=== PATIENT | female | born 1930 | race Caucasian/White ===

== ENCOUNTER → 2017-02-24 | Outpatient (CLI) | payer MEDICARE, OTHER ==
--- NOTE | 2017-02-24 15:01 | RAD ---
DATE: 02/24/2017 EXAM: DIGITAL SCREEN BILAT W/CAD HISTORY: Routine screening COMPARISON: 08/17/2013 This study was interpreted with the benefit of Computerized Aided Detection (CAD). FINDINGS: The fibroglandular tissues in the anterior aspect of the breasts are heterogeneously dense. No new or enlarging breast densities are seen. Benign type calcifications are present. No suspicious microcalcifications have developed. IMPRESSION: Stable mammograms without evidence of malignancy. BI-RADS CATEGORY: 2 BENIGN FINDING(S) RECOMMENDED FOLLOW-UP: 12M 12 MONTH FOLLOW-UP PQRS compliance statement: Patient information was entered into a reminder system with a target due date for the next mammogram. Mammography is a sensitive method for finding small breast cancers, but it does not detect them all and is not a substitute for careful clinical examination. A negative mammogram does not negate a clinically suspicious finding and should not result in delay in biopsying a clinically suspicious abnormality. "Our facility is accredited by the [employer] Mammography Program."
== END | disposition home or self-care (01) ==
LOC: MAMMO 10:36
PROVIDERS: ATTEND Physician Assistant
DX: Z12.31 Encounter for screening mammogram for malignant neoplasm of breast (principal)
CPT/HCPCS: G0202; 77067

== ENCOUNTER 2017-04-12 07:52 | Inpatient (IN) | payer MEDICARE, OTHER ==
[2017-04-12] VITALS (22 sets, daily range): BP systolic 76–114; BP diastolic 34–75
[~2017-04-12] VITALS: Ht 160 cm; Wt 77.6 kg
--- NOTE | 2017-04-12 08:09 | ED.ADGEN ---
Adult General Chief Complaint Chief Complaint Nausea vomiting diarrhea HPI HPI Patient is a 86 year old female who presents with vomiting diarrhea for the last 3-4 days. She states she has a history of A. fib and takes Coumadin. She states she's been feeling generalized weak, and not able to keep down any of her medicines. She also has some mild abdominal pain in the left upper quadrant that she states comes and goes. She states she's been having black stools but has been taking Pepto and iron pills. Denies any fevers chills chest pain or shortness of breath. Review of Systems Review of Systems Constitutional: Denies fever or chills [] Eyes: Denies change in visual acuity, redness, or eye pain [] HENT: Denies nasal congestion or sore throat [] Respiratory: Denies cough or shortness of breath [] Cardiovascular: No additional information not addressed in HPI [] GI: Positive for mild abdominal pain, nausea, vomiting, and black diarrhea [] : Denies dysuria or hematuria [] Musculoskeletal: Denies back pain or joint pain [] Integument: Denies rash or skin lesions [] Neurologic: Denies headache, focal weakness or sensory changes [] Endocrine: Denies polyuria or polydipsia [] Current Medications Current Medications Current Medications Medications (Trade) Dose Ordered Sig/Beau Start Time Stop Time Status Last Admin Dose Admin Diltiazem HCl (Cardizem) 10 mg 1X ONCE 04/12/17 10:00 04/12/17 10:01 DC 04/12/17 10:02 10 MG Diltiazem HCl 125 mg/Dextrose 125 ml @ 0 mls/hr 1X ONCE 04/12/17 10:00 04/12/17 10:01 DC 04/12/17 10:26 5 MLS/HR Lidocaine/Sodium Bicarbonate (Buffered Lidocaine 1%) 3 ml 1X ONCE 04/12/17 10:00 04/12/17 10:00 DC Sodium Chloride 1,000 ml @ 1,000 mls/hr 1X ONCE 04/12/17 08:30 04/12/17 09:29 DC 04/12/17 08:35 1,000 MLS/HR Allergies Allergies Allergies Coded Allergies Type Severity Reaction Last Updated Verified No Known Drug Allergies 04/12/17 No Physical Exam Physical Exam Constitutional: Well developed, well nourished, no acute distress, non-toxic appearance. [] HENT: Normocephalic, atraumatic, bilateral external ears normal, oropharynx moist, no oral exudates, nose normal. [] Eyes: PERRLA, EOMI, conjunctiva normal, no discharge. [] Neck: Normal range of motion, no tenderness, supple, no stridor. [] Cardiovascular:Heart rate irregular rhythm with tachycardia, no murmur [] Lungs & Thorax: Bilateral breath sounds clear to auscultation [] Abdomen rectal exam: Bowel sounds normal, soft, mild tender to palpation the left upper quadrant, no rebound or guarding, no masses, no pulsatile masses. Normal tone, black liquid stools, no obvious blood noted. Skin: Warm, dry, no erythema, no rash. [] Back: No tenderness, no CVA tenderness. [] Extremities: No tenderness, no cyanosis, no clubbing, ROM intact, no edema. [] Neurologic: Alert and oriented X 3, normal motor function, normal sensory function, no focal deficits noted. [] Psychologic: Affect normal, judgement normal, mood normal. [] Current Patient Data Vital Signs Vital Signs Date Time Temp Pulse Resp B/P (MAP) Pulse Ox O2 Delivery O2 Flow Rate FiO2 04/12/17 10:02 130 132/64 04/12/17 07:54 98.6 18 98 Room Air Lab Results Laboratory Tests Test 04/12/17 08:35 04/12/17 10:30 White Blood Count 6.7 x10^3/uL (4.0-11.0) Red Blood Count 4.97 x10^6/uL (3.50-5.40) Hemoglobin 14.1 g/dL (12.0-15.5) Hematocrit 43.2 % (36.0-47.0) Mean Corpuscular Volume 87 fL (79-100) Mean Corpuscular Hemoglobin 28 pg (25-35) Mean Corpuscular Hemoglobin Concent 33 g/dL (31-37) Red Cell Distribution Width 14.7 % (11.5-14.5) H Platelet Count 219 x10^3/uL (140-400) Neutrophils (%) (Auto) 81 % (31-73) H Lymphocytes (%) (Auto) 10 % (24-48) L Monocytes (%) (Auto) 8 % (0-9) Eosinophils (%) (Auto) 0 % (0-3) Basophils (%) (Auto) 0 % (0-3) Neutrophils # (Auto) 5.4 x10^3uL (1.8-7.7) Lymphocytes # (Auto) 0.7 x10^3/uL (1.0-4.8) L Monocytes # (Auto) 0.5 x10^3/uL (0.0-1.1) Eosinophils # (Auto) 0.0 x10^3/uL (0.0-0.7) Basophils # (Auto) 0.0 x10^3/uL (0.0-0.2) Prothrombin Time 54.9 SEC (9.4-11.4) H Prothrombin Time INR 5.3 (0.9-1.1) *H PTT 40 SEC (23-33) H Sodium Level 141 mmol/L (136-145) Potassium Level 3.7 mmol/L (3.5-5.1) Chloride Level 105 mmol/L (98-107) Carbon Dioxide Level 15 mmol/L (21-32) L Anion Gap 21 (6-14) H Blood Urea Nitrogen 43 mg/dL (7-20) H Creatinine 2.8 mg/dL (0.6-1.0) H Estimated GFR (Cockcroft-Gault) 16.0 Glucose Level 242 mg/dL (70-99) H Lactic Acid Level 6.0 mmol/L (0.4-2.0) *H Calcium Level 9.0 mg/dL (8.5-10.1) Magnesium Level 1.6 mg/dL (1.8-2.4) L Total Bilirubin 0.5 mg/dL (0.2-1.0) Direct Bilirubin 0.2 mg/dL (0.0-0.2) Aspartate Amino Transferase (AST) 29 U/L (15-37) Alanine Aminotransferase (ALT) 25 U/L (14-59) Alkaline Phosphatase 65 U/L (46-116) Creatine Kinase 249 U/L (26-192) H Creatine Kinase MB (Mass) 9.9 ng/mL (0.0-3.6) H Creatine Kinase MB Relative Index 4.0 % (0-4) Troponin I Quantitative < 0.017 ng/mL (0-0.055) VY-Qcd-D-Type Natriuretic Peptide 5352 pg/mL (0-449) H Total Protein 7.6 g/dL (6.4-8.2) Albumin 3.4 g/dL (3.4-5.0) Lipase 55 U/L (73-393) L Blood pH 7.40 (7.35-7.45) Blood Gas PCO2 20 mmHg (35-45) L Blood Gas PO2 65 mmHg (71-100) L Blood Gas HCO3 12 mmol/L (22-26) L Arterial Bld O2 Saturation (Calc) 93 % (92-99) FiO2 21 % EKG EKG [] Radiology/Procedures Radiology/Procedures [address] [address] IMAGING REPORT Signed PATIENT: ТАТЬЯНА NOLAND ACCOUNT: [id number] : 1930 LOCATION: ER AGE: 86 SEX: F EXAM STATUS: REG ER ORD. PHYSICIAN: NINOSKA WEINSTEIN MD REASON: abd pain PROCEDURE: PORTABLE CHEST 1V Chest radiograph 04/12/2017 at 0829 hours Indication: Severe diarrhea for 4 days, shortness of breath. Comparison: None available Technique: Portable upright view of the chest is provided. Findings: The cardiomediastinal silhouette is within normal limits. There are no pleural effusions. No pulmonary vascular congestion. No pneumothorax. There is left basilar subsegmental atelectasis. 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 Impression: Subsegmental atelectasis is noted at the left lung base. Otherwise, the lungs are clear. DICTATED AND SIGNED BY: NEHAL SESAY MD DATE: 04/12/17 0837 CC: NINOSKA WEINSTEIN MD; PIOTR STEPHEN ~ Course & Med Decision Making Course & Med Decision Making Pertinent Labs and Imaging studies reviewed. (See chart for details) She presents with a heart rate in the 150s after liter fluids is in the 130s. Diltiazem 10 mg bolus and a drip at 5 per hour was started. She has an elevated lactic acid at 6, with an anion gap. Her creatinine is elevated I do not know this is old or new. Rectal exam was performed and Hemoccult pending at this time. Her hemoglobin is 14. Her INR is elevated at 5. She is in stable condition even though her labs do not reflect this. She's being admitted to Dr. Hernandez at this time her vitals lab chest x-ray EKG were described in detail to Dr. Hernandez. The patient since stable but critical condition going to the ICU Critical care time 55 minutes of critical care time was used on this patient excluding procedures. Final Impression Final Impression A. fib with RVR Diarrhea Lactic acidosis Renal failure Problems: Dragon Disclaimer Dragon Disclaimer This electronic medical record was generated, in whole or in part, using a voice recognition dictation system. NINOSKA WEINSTEIN MD Apr 12, 2017 08:09
[2017-04-12] MEDS ORDERED: WARF1TAB74 PO (08:12)
[2017-04-12] MEDS ORDERED: IV NORMAL SALINE 1,000ML 1,000 ML IV ONE ×3 (08:30→16:00)
--- NOTE | 2017-04-12 08:42 | RAD ---
Chest radiograph 04/12/2017 at 0829 hours Indication: Severe diarrhea for 4 days, shortness of breath. Comparison: None available Technique: Portable upright view of the chest is provided. Findings: The cardiomediastinal silhouette is within normal limits. There are no pleural effusions. No pulmonary vascular congestion. No pneumothorax. There is left basilar subsegmental atelectasis. 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 Impression: Subsegmental atelectasis is noted at the left lung base. Otherwise, the lungs are clear.
--- NOTE | 2017-04-12 08:51 | EKG ---
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
[2017-04-12 08:58] LABS: BASO % 0 % (0-3); EOS % 0 % (0-3); HEMATOCRIT 43.2 % (36.0-47.0); HEMOGLOBIN 14.1 g/dL (12.0-15.5); LYMPH # 0.7 x10^3/uL (1.0-4.8); LYMPH % 10 % (24-48); MEAN CORPUSCULAR HEMOGLOBIN 28 pg (25-35); MEAN CORPUSCULAR HGB CONC 33 g/dL (31-37); MEAN CORPUSCULAR VOLUME 87 fL (79-100); MONO # 0.5 x10^3/uL (0.0-1.1); MONO % 8 % (0-9); NEUT # 5.4 x10^3uL (1.8-7.7); NEUT % 81 % (31-73); PLATELET COUNT 219 x10^3/uL (140-400); RED BLOOD COUNT 4.97 x10^6/uL (3.50-5.40); RED CELL DISTRIBUTION WIDTH 14.7 % (11.5-14.5); WHITE BLOOD COUNT 6.7 x10^3/uL (4.0-11.0)
[2017-04-12 09:30] LABS: ALBUMIN 3.4 g/dL (3.4-5.0); CREATININE 2.8 mg/dL (0.6-1.0); DIRECT BILIRUBIN 0.2 mg/dL (0.0-0.2); MAGNESIUM 1.6 mg/dL (1.8-2.4); POTASSIUM 3.7 mmol/L (3.5-5.1); TOTAL BILIRUBIN 0.5 mg/dL (0.2-1.0); TOTAL PROTEIN 7.6 g/dL (6.4-8.2)
[2017-04-12] MEDS ORDERED: dilTIAZem 25 MG/5 ML VIAL IVP ONE (10:00)
[2017-04-12] MEDS ORDERED: LIDOCAINE WITH 8.4% SOD BICARB 3 ML DISP.SYRIN. IJ ONE (10:00)
[2017-04-12 10:48] LABS: BGAS PH 7.4 (7.35-7.45)
[2017-04-12] MEDS ORDERED: ONDANSETRON PF 4 MG/2 ML VIAL. IV PRN ×2 (11:00→12:30)
[2017-04-12 11:10] LABS: BACTERIA,URINE FEW /HPF (0-FEW); BILIRUBIN,URINE NEG (NEG); CLARITY,URINE HAZY; COLOR,URINE YELLOW; FECAL OB PT NEGATIVE (NEG); GLUCOSE,URINE NEG (NEG); NITRITE,URINE NEG (NEG); SQUAMOUS EPITHELIAL CELL,UR OCC /LPF; UROBILINOGEN,URINE 0.2 mg/dL (0.2 mg/dL); WBC,URINE 0 /HPF (0-4)
[2017-04-12 11:11] LABS: AMORPHOUS SEDIMENT,UR PRESENT /HPF
[2017-04-12] MEDS ORDERED: AMLO10TA2 PO (12:49)
[2017-04-12] MEDS ORDERED: ASCO500T3 PO (12:54)
[2017-04-12] MEDS ORDERED: CALC-77 PO (12:56)
[2017-04-12] MEDS ORDERED: ATOR10TA PO (12:56)
[2017-04-12] MEDS ORDERED: ASPI81TA50 PO (12:56)
[2017-04-12] MEDS ORDERED: METO50TA2 PO (13:04)
[2017-04-12] MEDS ORDERED: METO100T2 PO (13:04)
[2017-04-12] MEDS ORDERED: CYAN100T PO (13:04)
[2017-04-12] MEDS ORDERED: VALS320T2 PO (13:04)
[2017-04-12] MEDS ORDERED: MULT-503 PO (13:04)
[2017-04-12] MEDS ORDERED: MAGNESIUM SULFATE 2GM 50 ML IV ONE (13:10)
--- NOTE | 2017-04-12 14:52 | PDOC2 ---
CONSULT Date of Admission DATE: 04/12/17 TIME: 14:28 Reason for Consult: atrial fibrillation with RVR Problem List Problems Medical Problems: (1) Afib Status: Acute History of Present Illness Apple is an 86 year old female with history of atrial fibrillation, hypertension and hyperlipidemia who normally follows with [facility]. She reports diarrhea and vomiting that started Tuesday luis. She states she was fine most of the day Sat, then Sat luis started with symptoms again. Diarrhea has continued and when nausea/vomiting started she presented for eval. She denies chest discomfort. She does report dyspnea with walking up the steps in her home over the last 1 week that is new. She denies congestive symptoms. She denies problems with functional capacity normally. She denies any lightheadedness or dizziness or syncope. She denies fever or chills but does report waking in the night with significant diaphoresis. She currently states she feels fine except for the ongoing diarrhea. Past Medical History hypertension, hyperlipidemia, diabetes mellitus, atrial fibrillation, colon cancer Past Surgical History colon resection Family History non contributory due to age Social History non smoker, no significant ETOH, no illicit drugs. and lives with . Current Medications HOME cardiac meds include: [id number] mg daily, valsartan 320 mg daily, metoprolol 100mg every am, 50 mg every pm, aspirin 81mg daily, lipitor 10 mg daily, warfarin 2 mg daily Current Medications Sodium Chloride 1,000 ml @ 1,000 mls/hr 1X ONCE IV Last administered on 08:35; Start 04/12/17 at 08:30; Stop 04/12/17 at 09:29; Status DC Diltiazem HCl (Cardizem) 10 mg 1X ONCE IVP Last administered on 04/12/17 10: 02; Start 04/12/17 at 10:00; Stop 04/12/17 at 10:01; Status DC Diltiazem HCl 125 mg/Dextrose 125 ml @ 0 mls/hr 1X ONCE IV Last administered on 04/12/17 10:26; Start 04/12/17 at 10:00; Stop 04/12/17 at 10:01; Status DC Lidocaine/Sodium Bicarbonate (Buffered Lidocaine 1%) 3 ml 1X ONCE IJ ; Start at 10:00; Stop 04/12/17 at 10:00; Status DC Ondansetron HCl (Zofran) 4 mg PRN Q4HRS PRN IV NAUSEA/VOMITING; Start 04/12/17 at 11:00; Stop 04/13/17 at 10:59 Sodium Chloride 1,000 ml @ 125 mls/hr 1X ONCE IV Last administered on t 11:00; Start 04/12/17 at 11:00; Stop 04/12/17 at 18:59 Ondansetron HCl (Zofran) 4 mg PRN Q8HRS PRN IV NAUSEA/VOMITING; Start 04/12/17 at 12:30 Magnesium Sulfate 50 ml @ 25 mls/hr 1X ONCE IV Last administered on 04/12/17 13:49; Start 04/12/17 at 13:10; Stop 04/12/17 at 15:09 Famotidine (Pepcid) 20 mg BID IVP ; Start 04/12/17 at 21:00 Active Scripts Active Amlodipine Besylate 10 Mg Tablet 1 Tab PO DAILY Reported Diovan (Valsartan) 320 Mg Tablet 1 Tab PO DAILY Thera-M (Multivits,Th W-Fe,Other Min) 1 Each Tablet 1 Each PO DAILY Metoprolol Tartrate 50 Mg Tablet 1 Tab PO HS Metoprolol Tartrate 100 Mg Tablet 1 Tab PO DAILY Vitamin B-12 (Cyanocobalamin (Vitamin B-12)) 100 Mcg Tablet 100 Mcg PO DAILY Calcium + D3 Er Tablet (Calcium Carb & Cit/Vitamin D3) 1 Each Tablet.er 1 Each PO DAILY Lipitor (Atorvastatin Calcium) 10 Mg Tablet 1 Tab PO DAILY Aspir-Low (Aspirin) 81 Mg Tablet.dr 1 Tab PO DAILY Ascorbic Acid 500 Mg Tablet 500 Mg PO DAILY Coumadin (Warfarin Sodium) 1 Mg Tablet 2 Mg PO DAILYWSUP Allergies: Coded Allergies: No Known Drug Allergies (Unverified , 04/12/17) Review of System as per HPI or negative General: Alert, Oriented X3, Cooperative, No acute distress HEENT: Atraumatic, EOMI, Other (mucous memb dry) Lungs: Other (left basilar crackles) Heart: Other (irregular rate and rhythm, no S3/S5, no clicks or rubs) Extremities: No cyanosis, Other (weak pulses) Neuro: Normal speech, Strength at 5/5 X4 ext Psych/Mental Status: Mental status NL, Mood NL VITALS Vital Signs Date Time Temp Pulse Resp B/P (MAP) Pulse Ox O2 Delivery O2 Flow Rate FiO2 04/12/17 13:29 98.0 121 20 113/75 (88) 97 Room Air Labs Laboratory Tests Test 04/12/17 08:35 04/12/17 10:30 04/12/17 10:55 04/12/17 12:40 White Blood Count 6.7 x10^3/uL (4.0-11.0) Red Blood Count 4.97 x10^6/uL (3.50-5.40) Hemoglobin 14.1 g/dL (12.0-15.5) Hematocrit 43.2 % (36.0-47.0) Mean Corpuscular Volume 87 fL (79-100) Mean Corpuscular Hemoglobin 28 pg (25-35) Mean Corpuscular Hemoglobin Concent 33 g/dL (31-37) Red Cell Distribution Width 14.7 % (11.5-14.5) Platelet Count 219 x10^3/uL (140-400) Neutrophils (%) (Auto) 81 % (31-73) Lymphocytes (%) (Auto) 10 % (24-48) Monocytes (%) (Auto) 8 % (0-9) Eosinophils (%) (Auto) 0 % (0-3) Basophils (%) (Auto) 0 % (0-3) Neutrophils # (Auto) 5.4 x10^3uL (1.8-7.7) Lymphocytes # (Auto) 0.7 x10^3/uL (1.0-4.8) Monocytes # (Auto) 0.5 x10^3/uL (0.0-1.1) Eosinophils # (Auto) 0.0 x10^3/uL (0.0-0.7) Basophils # (Auto) 0.0 x10^3/uL (0.0-0.2) Prothrombin Time 54.9 SEC (9.4-11.4) Prothromb Time International Ratio 5.3 (0.9-1.1) Activated Partial Thromboplast Time 40 SEC (23-33) Sodium Level 141 mmol/L (136-145) Potassium Level 3.7 mmol/L (3.5-5.1) Chloride Level 105 mmol/L (98-107) Carbon Dioxide Level 15 mmol/L (21-32) Anion Gap 21 (6-14) Blood Urea Nitrogen 43 mg/dL (7-20) Creatinine 2.8 mg/dL (0.6-1.0) Estimated GFR (Cockcroft-Gault) 16.0 Glucose Level 242 mg/dL (70-99) Lactic Acid Level 6.0 mmol/L (0.4-2.0) 2.7 mmol/L (0.4-2.0) Calcium Level 9.0 mg/dL (8.5-10.1) Magnesium Level 1.6 mg/dL (1.8-2.4) Total Bilirubin 0.5 mg/dL (0.2-1.0) Direct Bilirubin 0.2 mg/dL (0.0-0.2) Aspartate Amino Transf (AST/SGOT) 29 U/L (15-37) Alanine Aminotransferase (ALT/SGPT) 25 U/L (14-59) Alkaline Phosphatase 65 U/L (46-116) Creatine Kinase 249 U/L (26-192) Creatine Kinase MB (Mass) 9.9 ng/mL (0.0-3.6) Creatine Kinase MB Relative Index 4.0 % (0-4) Troponin I Quantitative < 0.017 ng/mL (0-0.055) AK-Cjt-V-Type Natriuretic Peptide 5352 pg/mL (0-449) Total Protein 7.6 g/dL (6.4-8.2) Albumin 3.4 g/dL (3.4-5.0) Lipase 55 U/L (73-393) Blood Gas pH 7.40 (7.35-7.45) Blood Gas PCO2 20 mmHg (35-45) Blood Gas PO2 65 mmHg (71-100) Blood Gas HCO3 12 mmol/L (22-26) Arterial Bld O2 Saturation (Calc) 93 % (92-99) FiO2 21 % Urine Collection Type U cath Urine Color Yellow Urine Clarity Hazy Urine pH 5.0 Urine Specific [place] 1.020 Urine Protein Neg (NEG-TRACE) Urine Glucose (UA) Neg mg/dL (NEG) Urine Ketones (Stick) Trace mg/dL (NEG) Urine Blood Mod (NEG) Urine Nitrite Neg (NEG) Urine Bilirubin Neg (NEG) Urine Urobilinogen Dipstick 0.2 mg/dL (0.2 mg/dL) Urine Leukocyte Esterase Neg (NEG) Urine RBC 3-5 /HPF (0-2) Urine WBC 0 /HPF (0-4) Urine Squamous Epithelial Cells Occ /LPF Urine Amorphous Sediment Present /HPF Urine Bacteria Few /HPF (0-FEW) Stool Occult Blood Negative (NEG) Images CXR - no pulmonary vascular congestion Assessment/Plan 1. Atrial fibrillation with RVR - Cardizem drip. 2. coagulopathy INR 5.3 - hold warfarin 3. Acute renal failure secondary to dehydration - OK with continued fluids 4. lactic acidosis - per PCP 5. hypertension - pressures on the low end with cardizem IV - continue rehydration 6. hyperlipidemia - check lipids Request records from Dr Blackwood office. Echo if not done recently. Continue with rate control. Hold warfarin until INR <3.5. Continue rehydration and mgmt of diarrhea per PCP. Problems: CELSO ABEBE [employer] Apr 12, 2017 14:52
[2017-04-12] MEDS ORDERED: DEXTROSE 50% 25 GM / 50ML DISP.SYRIN. IV PRN (15:30)
[2017-04-12] MEDS ORDERED: IV NORMAL SALINE 500ML 500 ML ONE (15:51)
--- NOTE | 2017-04-12 15:56 | PDOC1 ---
HISTORY & PHYSICAL DATE OF ADMISSION: 04/12/2017 HPI: HPI: This is a 86 year old female who went out to dinner last Tuesday night and had the "special". States they suspect the special is leftover food. when she got home she had three watery stools. She was fine on Tuesday but on Tuesday she developed diffuse watery diarrhea to the point that she couldn't make it to the bathroom. She became very weak and dehydrated and was not able to eat or keep up with her fluids. Did not have fever or chills. PROBLEMS: Problems Medical Problems: (1) Afib with RVR (2) supratherapeutic INR (3) acute diarrhea-suspect food poisoning (4) acute renal failure (5) hypomagnesemia (6) Metabolic acidosis-high anion gap (7) SIRS with acute organ dysfunction (8) hyperglycemia Status: Acute PAST MEDICAL HISTORY: PMH: Chronic A. fib, Long-term use of anticoagulants Hyperlipidemia History of colon cancer 2001 PSH: Colon resection in 2001 for colon cancer. Now a long-term survivor SH: She is . She has a daughter. And she her is still living. She lives at home with her . Never smoked. No alcohol. PFMH: Unknown ALLERGIES: No known drug allergies Allergies Coded Allergies Type Severity Reaction Last Updated Verified No Known Drug Allergies 04/12/17 No MEDS: MEDICATIONS: Meds have been reviewed please see MAR Current Medications Medications (Trade) Dose Ordered Sig/Beau Start Time Stop Time Status Last Admin Dose Admin Dextrose 12.5 gm PRN Q15MIN PRN 04/12/17 15:30 Diltiazem HCl (Cardizem) 10 mg 1X ONCE 04/12/17 10:00 04/12/17 10:01 DC 04/12/17 10:02 10 MG Diltiazem HCl 125 mg/Dextrose 125 ml @ 0 mls/hr 1X ONCE 04/12/17 10:00 04/12/17 10:01 DC 04/12/17 10:26 5 MLS/HR Famotidine (Pepcid) 20 mg BID 04/12/17 21:00 Insulin Aspart (NovoLOG) 0-5 UNITS QIDACHS 04/12/17 16:30 Lidocaine/Sodium Bicarbonate (Buffered Lidocaine 1%) 3 ml 1X ONCE 04/12/17 10:00 04/12/17 10:00 DC Magnesium Sulfate 50 ml @ 25 mls/hr 1X ONCE 04/12/17 13:10 04/12/17 15:09 DC 04/12/17 13:49 25 MLS/HR Metronidazole 100 ml @ 100 mls/hr Q8HRS 04/12/17 15:30 UNV Multivitamins/ Minerals 10 ml/ Folic Acid 1 mg/ Thiamine HCl 100 mg/Potassium Chloride 20 meq/ Dextrose/Lactated Ringer's 1,021.2 ml @ 150 mls/ hr 1X ONCE 04/12/17 16:00 04/12/17 22:48 Ondansetron HCl (Zofran) 4 mg PRN Q8HRS PRN 04/12/17 12:30 Sodium Chloride 1,000 ml @ 125 mls/hr 1X ONCE 04/12/17 11:00 04/12/17 18:59 04/12/17 11:00 125 MLS/HR VITALS: Vital Signs Date Time Temp Pulse Resp B/P (MAP) Pulse Ox O2 Delivery O2 Flow Rate FiO2 04/12/17 13:29 98.0 121 20 113/75 (88) 97 Room Air LABS: Laboratory Tests Test 04/12/17 08:35 04/12/17 10:30 04/12/17 10:55 04/12/17 12:40 White Blood Count 6.7 x10^3/uL (4.0-11.0) Red Blood Count 4.97 x10^6/uL (3.50-5.40) Hemoglobin 14.1 g/dL (12.0-15.5) Hematocrit 43.2 % (36.0-47.0) Mean Corpuscular Volume 87 fL (79-100) Mean Corpuscular Hemoglobin 28 pg (25-35) Mean Corpuscular Hemoglobin Concent 33 g/dL (31-37) Red Cell Distribution Width 14.7 % (11.5-14.5) Platelet Count 219 x10^3/uL (140-400) Neutrophils (%) (Auto) 81 % (31-73) Lymphocytes (%) (Auto) 10 % (24-48) Monocytes (%) (Auto) 8 % (0-9) Eosinophils (%) (Auto) 0 % (0-3) Basophils (%) (Auto) 0 % (0-3) Neutrophils # (Auto) 5.4 x10^3uL (1.8-7.7) Lymphocytes # (Auto) 0.7 x10^3/uL (1.0-4.8) Monocytes # (Auto) 0.5 x10^3/uL (0.0-1.1) Eosinophils # (Auto) 0.0 x10^3/uL (0.0-0.7) Basophils # (Auto) 0.0 x10^3/uL (0.0-0.2) Prothrombin Time 54.9 SEC (9.4-11.4) Prothromb Time International Ratio 5.3 (0.9-1.1) Activated Partial Thromboplast Time 40 SEC (23-33) Sodium Level 141 mmol/L (136-145) Potassium Level 3.7 mmol/L (3.5-5.1) Chloride Level 105 mmol/L (98-107) Carbon Dioxide Level 15 mmol/L (21-32) Anion Gap 21 (6-14) Blood Urea Nitrogen 43 mg/dL (7-20) Creatinine 2.8 mg/dL (0.6-1.0) Estimated GFR (Cockcroft-Gault) 16.0 Glucose Level 242 mg/dL (70-99) Lactic Acid Level 6.0 mmol/L (0.4-2.0) 2.7 mmol/L (0.4-2.0) Calcium Level 9.0 mg/dL (8.5-10.1) Magnesium Level 1.6 mg/dL (1.8-2.4) Total Bilirubin 0.5 mg/dL (0.2-1.0) Direct Bilirubin 0.2 mg/dL (0.0-0.2) Aspartate Amino Transf (AST/SGOT) 29 U/L (15-37) Alanine Aminotransferase (ALT/SGPT) 25 U/L (14-59) Alkaline Phosphatase 65 U/L (46-116) Creatine Kinase 249 U/L (26-192) Creatine Kinase MB (Mass) 9.9 ng/mL (0.0-3.6) Creatine Kinase MB Relative Index 4.0 % (0-4) Troponin I Quantitative < 0.017 ng/mL (0-0.055) NR-Etn-C-Type Natriuretic Peptide 5352 pg/mL (0-449) Total Protein 7.6 g/dL (6.4-8.2) Albumin 3.4 g/dL (3.4-5.0) Lipase 55 U/L (73-393) Thyroid Stimulating Hormone (TSH) 1.386 uIU/mL (0.358-3.740) Blood Gas pH 7.40 (7.35-7.45) Blood Gas PCO2 20 mmHg (35-45) Blood Gas PO2 65 mmHg (71-100) Blood Gas HCO3 12 mmol/L (22-26) Arterial Bld O2 Saturation (Calc) 93 % (92-99) FiO2 21 % Urine Collection Type U cath Urine Color Yellow Urine Clarity Hazy Urine pH 5.0 Urine Specific [place] 1.020 Urine Protein Neg (NEG-TRACE) Urine Glucose (UA) Neg mg/dL (NEG) Urine Ketones (Stick) Trace mg/dL (NEG) Urine Blood Mod (NEG) Urine Nitrite Neg (NEG) Urine Bilirubin Neg (NEG) Urine Urobilinogen Dipstick 0.2 mg/dL (0.2 mg/dL) Urine Leukocyte Esterase Neg (NEG) Urine RBC 3-5 /HPF (0-2) Urine WBC 0 /HPF (0-4) Urine Squamous Epithelial Cells Occ /LPF Urine Amorphous Sediment Present /HPF Urine Bacteria Few /HPF (0-FEW) Stool Occult Blood Negative (NEG) ROS: Review of systems is negative except per history of present illness. PHYSICAL EXAM: Gen. call: This is an 86-year-old female in no acute distress HEENT: Eyes are clear tongue is dry neck was supple Lungs with some crackles in the left base otherwise clear Cardiovascular regular rhythm regular rhythm and rate with tachycardia The abdomen was soft bowel sounds are positive nontender rectal exam done by the ER physician was negative for stool for Hemoccult Noted that the patient is having copious amounts of non foul-smelling liquidy mucousy diarrhea Skin turgor fail, color pale VTE PROPHYLAXIS: VTE Prophylaxis Devices: Contrainidicated ASSESSMENT/PLAN ASSESSMENT: 1 acute diarrhea of 3 days' duration-suspect food poisoning #2 to acute renal failure secondary to dehydration #3 metabolic acidosis #4 transient hypoxia now has resolved #5 SIRS with acute organ dysfunction #6 hypomagnesemia #7 A. fib with RVR #8 INR is supratherapeutic #9 history of colon cancer PLAN: Fluid resusitation. Stool cultues, etc. Cardiology consult-on Cardene drip. Hold coumadin. Start Flagyl. . Oxygen as needed. NATASHA PALOMINO DO Apr 12, 2017 15:56
[2017-04-12] MEDS ORDERED: MVI, ADULT NO.4 WITH VIT K 10 ML, FOLIC ACID 1 MG, THIAMINE 100 MG, POTASSIUM CHLORIDE ... IV ONE ×5 (16:00)
[2017-04-12] MEDS: INSULIN ASPART 300 UNITS/3 ML INSULN.PEN SQ SCH ×2 (16:30→21:40)
[2017-04-12 18:11] LABS: BASO % 0 % (0-3); EOS % 0 % (0-3); HEMATOCRIT 39.9 % (36.0-47.0); HEMOGLOBIN 13.1 g/dL (12.0-15.5); LYMPH # 1.2 x10^3/uL (1.0-4.8); LYMPH % 10 % (24-48); MEAN CORPUSCULAR HEMOGLOBIN 28 pg (25-35); MEAN CORPUSCULAR HGB CONC 33 g/dL (31-37); MEAN CORPUSCULAR VOLUME 86 fL (79-100); MONO # 0.6 x10^3/uL (0.0-1.1); MONO % 5 % (0-9); NEUT # 10.3 x10^3uL (1.8-7.7); NEUT % 85 % (31-73); PLATELET COUNT 201 x10^3/uL (140-400); RED BLOOD COUNT 4.64 x10^6/uL (3.50-5.40); RED CELL DISTRIBUTION WIDTH 14.5 % (11.5-14.5); WHITE BLOOD COUNT 12.1 x10^3/uL (4.0-11.0)
[2017-04-12 18:24] LABS: MAGNESIUM 2.4 mg/dL (1.8-2.4)
[2017-04-12] MEDS ORDERED: DIGOXIN IV 500 MCG/2 ML AMPUL. IV ONE (18:45)
[2017-04-12 20:07] LABS: % BANDS 42 % (0-9); % LYMPHS 8 % (24-48); % MONOS 6 % (0-10); % SEGS 44 % (35-66)
[2017-04-12 20:12] LABS: OVALOCYTES FEW
[2017-04-12 20:14] LABS: BURR CELLS FEW
[2017-04-12 20:19] LABS: PLT ESTIMATE ADEQUATE (ADEQUATE)
[2017-04-12] MEDS: FAMOTIDINE 20 MG/2 ML VIAL IVP SCH (21:43)
[2017-04-12] MEDS: METOPROLOL TART IMMED RELEASE 25 MG TABLET PO SCH ×2 (21:43→23:50)
[2017-04-13] VITALS (24 sets, daily range): BP systolic 74–120; BP diastolic 47–69
[2017-04-13] MEDS: POTASSIUM CL 20MEQ IN 0.9%NACL 1,000 ML IV SCH ×4 (00:47→18:32)
--- NOTE | 2017-04-13 02:36 | ACF ---
Admission Criteria Forms ATRIAL FIBRILLATION Clinical Indications for Admission to Inpatient Care (Place 'X' for any and all applicable criteria): Admission indicated for ANY ONE of the following(1)(2)(3)(4)(5) : [ ]I. Myocardial ischemia [ ]II. Dyspnea or hypoxemia [X ]III. Hemodynamic instability [ ]IV. Heart failure (e.g., pulmonary edema) (7) [ ]V. New-onset (less than 48 hours) atrial fibrillation with high risk for causing complications secondary to comorbidities (eg, symptomatic heart failure ) [ ]. Altered mental status [ ]VII. Syncope [ ]VIII. Patient has implantable cardioverter defibrillator that has fired more than once within past 24hr or needs immediate adjustment of settings that cannot be done other than in inpatient setting. (8) [ ]IX. Suspected accessory pathway (e.g., Onstg-Mpkuldkdo-Mertv syndrome) on ECG [ ]X. Recent systemic thromboembolism (eg, stroke) [ ]XI. Medication toxicity (e.g., digitalis) causing arrhythmia(9) [ ]XII. Underlying medical condition that necessitates inpatient care (e.g., thyrotoxicosis, pneumonia) (10) [ ]XIII. Continuous ECG monitoring is required for condition causing arrhythmia (e.g., severe hyperkalemia, hypokalemia, acid-base disturbance).(11)(12)(13) [ ]XIV. Initiation of antiarrhythmic drug therapy is needed in patient at high risk of adverse effects as indicated by ANY ONE of the following: [ ]a) Significant structural heart disease (e.g., reduced ejection fraction, congenital heart disease, valvular heart disease) [ ]b) Prolonged QT interval [ ]c) Underlying sinus node or atrioventricular conduction disturbances [ ]d) Need for treatment with antiarrhythmic drugs that have significant proarrhythmic potential (e.g., dofetilide, sotalol, procainamide) [ ]e) Patient whose sinus rhythm has never been observed on ECG [ ]XV. Intolerable symptoms despite optimal outpatient treatment [ ]XVI. Elective or urgent cardioversion that cannot be performed on outpatient basis or during observation care. [A] (Use also Atrial Fibrillation: Observation Care ) as appropriate.(14) [ ]XVII.Contraindications and/or Inappropriate clinical situations for Observational Care in patients with Atrial Fibrillation, when ANY ONE of the following is required: [ ]a) Patient with High risk of cardiac embolism (e.g, patients with previous cardiac embolism, LVEF < 40%, age >75 and patients with prosthetic valve) 18 [ ]b) Patient with Moderate risk including DM patient, CAD and patient aged 65-75 18 [ ]c) Patient with any change in cardiac biomarker especially troponin should be managed as high risk in an inpatient setting 19 [ ]d) Physician judgement irrespective of ECG and other diagnostic findings 20 [ ]XVIII.General contraindications and/or Inappropriate clinical situations for Observational Care in patients with Atrial Fibrillation, when ANY ONE of the following is required: [ ]a) Prediction of prolongation of LOS based on ANY ONE of the following may be considered as a contraindication for observational care 2, 3, 4, 5, 6, 7, 8, 9, 10, 11 [ ]i) Age > 65 yrs. [ ]ii) Patient arriving by ambulance [ ]iii) Patient with high acuity [ ]iv) Patient requiring vital sign monitoring [ ]v) Patient on IV medication [ ]b) Systolic blood pressures 180mmHg 3,12 [ ]c) Patient with altered mental status including delirium and other alteration of consciousness3 [ ]d) Patient whose discharge disposition will be to a fdc home or rehabilitation home should not be managed in Emergency Department Observation Unit. CMS rule requires 3 days hospital stay before such placement.3,13 [ ]e) Patient with failure to thrive due to broad array of etiologies 3,16,17 [ ]f) Inability to ambulate 3,14 Extended stay beyond goal length of stay may be needed for (1)(25)(26): [ ]a) Unstable comorbidities [ ]b) Persistently uncontrolled atrial fibrillation or other arrhythmias [ ]c) Acute thromboembolic event (e.g., stroke, limb ischemia) [ ]d) Need for inpatient attainment of full anticoagulation The original [employer] content created by [employer] has been revised. The portions of the content which have been revised are identified through the use of italic text or in bold, and [facility] has neither reviewed nor approved the modified material. All other unmodified content is copyright [employer]. Please see references footnoted in the original [facility] edition 2016 Admission Criteria Met?: Yes BRIEN OZUNA Apr 13, 2017 02:36
[2017-04-13] MEDS: METOPROLOL TART IMMED RELEASE 25 MG TABLET PO SCH ×3 (05:10→18:30)
[2017-04-13 05:56] LABS: BASO % 0 % (0-3); EOS # 0.1 x10^3/uL (0.0-0.7); EOS % 1 % (0-3); HEMATOCRIT 38.8 % (36.0-47.0); HEMOGLOBIN 12.7 g/dL (12.0-15.5); LYMPH # 0.8 x10^3/uL (1.0-4.8); LYMPH % 7 % (24-48); MEAN CORPUSCULAR HEMOGLOBIN 28 pg (25-35); MEAN CORPUSCULAR HGB CONC 33 g/dL (31-37); MEAN CORPUSCULAR VOLUME 86 fL (79-100); MONO # 0.3 x10^3/uL (0.0-1.1); MONO % 3 % (0-9); NEUT % 89 % (31-73); PLATELET COUNT 191 x10^3/uL (140-400); RED CELL DISTRIBUTION WIDTH 14.3 % (11.5-14.5); WHITE BLOOD COUNT 11.2 x10^3/uL (4.0-11.0)
[2017-04-13 06:09] LABS: ALBUMIN 2.8 g/dL (3.4-5.0); ALBUMIN/GLOBULIN RATIO 0.7 (1.0-1.7); CALCIUM 8.2 mg/dL (8.5-10.1); CREATININE 1.9 mg/dL (0.6-1.0); GFR 25.1; POTASSIUM 3.8 mmol/L (3.5-5.1); TOTAL BILIRUBIN 0.5 mg/dL (0.2-1.0); TOTAL PROTEIN 6.6 g/dL (6.4-8.2)
[2017-04-13] MEDS: INSULIN ASPART 300 UNITS/3 ML INSULN.PEN SQ SCH ×4 (07:30→21:00)
[2017-04-13] MEDS: FAMOTIDINE 20 MG/2 ML VIAL IVP SCH (08:18)
[2017-04-13] MEDS: LACTOBACILLUS ACIDOPH & BULGAR 1 TABLET. PO SCH (08:18)
[2017-04-13] MEDS ORDERED: LOPERAMIDE 2 MG CAPSULE PO ONE (08:30)
[2017-04-13] MEDS ORDERED: MVI, ADULT NO.4 WITH VIT K 10 ML, FOLIC ACID 1 MG, THIAMINE 100 MG in IV NORMAL SALINE ... IV ONE ×4 (09:00)
--- NOTE | 2017-04-13 09:45 | PDOC ---
PROGRESS NOTES Diagnosis Problem Problems Medical Problems: (1) Afib Status: Acute Assessment Problems Medical Problems: (1) Afib Status: Acute 1. Atrial fibrillation with RVR - Resumed metoprolol at decreased dose yesterday evening. increase as tolerated. Blood pressure currently low and off cardizem drip. Rate control improving, HR 90s-120s. Could consider amiodarone for rate control. repeat digoxin x 1 today. 2. coagulopathy INR 3.7 today - consider resume warfarin today and mgmt per PCP. 3. Acute renal failure secondary to diarrhea and dehydration - OK with continued fluids, Cr improving, GFR remains 25 (Class IV). 4. sepsis/lactic acidosis/diarrhea - per PCP 5. hypertension - pressures currently low, continue to rehydrate 6. hyperlipidemia - check lipids Problems: Subjective continued diarrhea otherwise no complaints. no dyspnea, chest pain or palpitations. HR remains somewhat uncontrolled. Objective tele - atrial fibrillation with rate 90s to 120's. Vital Signs Date Time Temp Pulse Resp B/P (MAP) Pulse Ox O2 Delivery O2 Flow Rate FiO2 04/13/17 06:20 92 18 98/55 (69) 98 Nasal Cannula 2.0 04/13/17 05:35 98.4 Intake and Output 04/13/17 07:00 Intake Total 6371 ml Output Total 1225 ml Balance 5146 ml Intake Oral 1250 ml IV Total 5121 ml Output Stool Total 1225 ml # Voids 1 Abdomen: Normal bowel sounds, Soft Heart: Other (IRR, no gallops, clicks or rubs) Extremities: No cyanosis, No edema, Normal pulses General: Alert, Oriented X3, Cooperative, No acute distress Lungs: Clear to auscultation Neuro: Normal speech, Strength at 5/5 X4 ext Psych/Mental Status: Mental status NL, Mood NL Review of Relevant I have reviewed the following items francheska (where applicable) has been applied. Labs Laboratory Tests Test 04/12/17 08:35 04/12/17 10:30 04/12/17 10:55 04/12/17 12:40 White Blood Count 6.7 x10^3/uL (4.0-11.0) Red Blood Count 4.97 x10^6/uL (3.50-5.40) Hemoglobin 14.1 g/dL (12.0-15.5) Hematocrit 43.2 % (36.0-47.0) Mean Corpuscular Volume 87 fL (79-100) Mean Corpuscular Hemoglobin 28 pg (25-35) Mean Corpuscular Hemoglobin Concent 33 g/dL (31-37) Red Cell Distribution Width 14.7 % (11.5-14.5) Platelet Count 219 x10^3/uL (140-400) Neutrophils (%) (Auto) 81 % (31-73) Lymphocytes (%) (Auto) 10 % (24-48) Monocytes (%) (Auto) 8 % (0-9) Eosinophils (%) (Auto) 0 % (0-3) Basophils (%) (Auto) 0 % (0-3) Neutrophils # (Auto) 5.4 x10^3uL (1.8-7.7) Lymphocytes # (Auto) 0.7 x10^3/uL (1.0-4.8) Monocytes # (Auto) 0.5 x10^3/uL (0.0-1.1) Eosinophils # (Auto) 0.0 x10^3/uL (0.0-0.7) Basophils # (Auto) 0.0 x10^3/uL (0.0-0.2) Prothrombin Time 54.9 SEC (9.4-11.4) Prothromb Time International Ratio 5.3 (0.9-1.1) Activated Partial Thromboplast Time 40 SEC (23-33) Sodium Level 141 mmol/L (136-145) Potassium Level 3.7 mmol/L (3.5-5.1) Chloride Level 105 mmol/L (98-107) Carbon Dioxide Level 15 mmol/L (21-32) Anion Gap 21 (6-14) Blood Urea Nitrogen 43 mg/dL (7-20) Creatinine 2.8 mg/dL (0.6-1.0) Estimated GFR (Cockcroft-Gault) 16.0 Glucose Level 242 mg/dL (70-99) Lactic Acid Level 6.0 mmol/L (0.4-2.0) 2.7 mmol/L (0.4-2.0) Calcium Level 9.0 mg/dL (8.5-10.1) Magnesium Level 1.6 mg/dL (1.8-2.4) Total Bilirubin 0.5 mg/dL (0.2-1.0) Direct Bilirubin 0.2 mg/dL (0.0-0.2) Aspartate Amino Transf (AST/SGOT) 29 U/L (15-37) Alanine Aminotransferase (ALT/SGPT) 25 U/L (14-59) Alkaline Phosphatase 65 U/L (46-116) Creatine Kinase 249 U/L (26-192) Creatine Kinase MB (Mass) 9.9 ng/mL (0.0-3.6) Creatine Kinase MB Relative Index 4.0 % (0-4) Troponin I Quantitative < 0.017 ng/mL (0-0.055) YS-Xdj-C-Type Natriuretic Peptide 5352 pg/mL (0-449) Total Protein 7.6 g/dL (6.4-8.2) Albumin 3.4 g/dL (3.4-5.0) Lipase 55 U/L (73-393) Thyroid Stimulating Hormone (TSH) 1.386 uIU/mL (0.358-3.740) Blood Gas pH 7.40 (7.35-7.45) Blood Gas PCO2 20 mmHg (35-45) Blood Gas PO2 65 mmHg (71-100) Blood Gas HCO3 12 mmol/L (22-26) Arterial Bld O2 Saturation (Calc) 93 % (92-99) FiO2 21 % Urine Collection Type U cath Urine Color Yellow Urine Clarity Hazy Urine pH 5.0 Urine Specific [place] 1.020 Urine Protein Neg (NEG-TRACE) Urine Glucose (UA) Neg mg/dL (NEG) Urine Ketones (Stick) Trace mg/dL (NEG) Urine Blood Mod (NEG) Urine Nitrite Neg (NEG) Urine Bilirubin Neg (NEG) Urine Urobilinogen Dipstick 0.2 mg/dL (0.2 mg/dL) Urine Leukocyte Esterase Neg (NEG) Urine RBC 3-5 /HPF (0-2) Urine WBC 0 /HPF (0-4) Urine Squamous Epithelial Cells Occ /LPF Urine Amorphous Sediment Present /HPF Urine Bacteria Few /HPF (0-FEW) Stool Occult Blood Negative (NEG) Test 04/12/17 14:00 04/12/17 15:36 04/12/17 15:48 04/12/17 16:55 Nasal Screen MRSA (PCR) Negative (Negative) Clostridium difficile Toxin (PCR) Negative (Negative) Negative (Negative) Troponin I Quantitative < 0.017 ng/mL (0-0.055) Glucose (Fingerstick) 144 mg/dL (70-99) Test 04/12/17 17:55 04/12/17 20:04 04/12/17 22:05 04/13/17 05:45 White Blood Count 12.1 x10^3/uL (4.0-11.0) 11.2 x10^3/uL (4.0-11.0) Red Blood Count 4.64 x10^6/uL (3.50-5.40) 4.50 x10^6/uL (3.50-5.40) Hemoglobin 13.1 g/dL (12.0-15.5) 12.7 g/dL (12.0-15.5) Hematocrit 39.9 % (36.0-47.0) 38.8 % (36.0-47.0) Mean Corpuscular Volume 86 fL (79-100) 86 fL (79-100) Mean Corpuscular Hemoglobin 28 pg (25-35) 28 pg (25-35) Mean Corpuscular Hemoglobin Concent 33 g/dL (31-37) 33 g/dL (31-37) Red Cell Distribution Width 14.5 % (11.5-14.5) 14.3 % (11.5-14.5) Platelet Count 201 x10^3/uL (140-400) 191 x10^3/uL (140-400) Neutrophils (%) (Auto) 85 % (31-73) 89 % (31-73) Lymphocytes (%) (Auto) 10 % (24-48) 7 % (24-48) Monocytes (%) (Auto) 5 % (0-9) 3 % (0-9) Eosinophils (%) (Auto) 0 % (0-3) 1 % (0-3) Basophils (%) (Auto) 0 % (0-3) 0 % (0-3) Neutrophils # (Auto) 10.3 x10^3uL (1.8-7.7) 10.0 x10^3uL (1.8-7.7) Lymphocytes # (Auto) 1.2 x10^3/uL (1.0-4.8) 0.8 x10^3/uL (1.0-4.8) Monocytes # (Auto) 0.6 x10^3/uL (0.0-1.1) 0.3 x10^3/uL (0.0-1.1) Eosinophils # (Auto) 0.0 x10^3/uL (0.0-0.7) 0.1 x10^3/uL (0.0-0.7) Basophils # (Auto) 0.0 x10^3/uL (0.0-0.2) 0.0 x10^3/uL (0.0-0.2) Segmented Neutrophils % 44 % (35-66) Band Neutrophils % 42 % (0-9) Lymphocytes % 8 % (24-48) Monocytes % 6 % (0-10) Platelet Estimate Adequate (ADEQUATE) Ovalocytes Few Charu Cells Few Magnesium Level 2.4 mg/dL (1.8-2.4) 2.1 mg/dL (1.8-2.4) OS-Jke-G-Type Natriuretic Peptide 4233 pg/mL (0-449) Glucose (Fingerstick) 165 mg/dL (70-99) Troponin I Quantitative < 0.017 ng/mL (0-0.055) Sodium Level 138 mmol/L (136-145) Potassium Level 3.8 mmol/L (3.5-5.1) Chloride Level 107 mmol/L (98-107) Carbon Dioxide Level 17 mmol/L (21-32) Anion Gap 14 (6-14) Blood Urea Nitrogen 41 mg/dL (7-20) Creatinine 1.9 mg/dL (0.6-1.0) Estimated GFR (Cockcroft-Gault) 25.1 BUN/Creatinine Ratio 22 (6-20) Glucose Level 111 mg/dL (70-99) Calcium Level 8.2 mg/dL (8.5-10.1) Total Bilirubin 0.5 mg/dL (0.2-1.0) Aspartate Amino Transf (AST/SGOT) 30 U/L (15-37) Alanine Aminotransferase (ALT/SGPT) 22 U/L (14-59) Alkaline Phosphatase 62 U/L (46-116) Total Protein 6.6 g/dL (6.4-8.2) Albumin 2.8 g/dL (3.4-5.0) Albumin/Globulin Ratio 0.7 (1.0-1.7) Test 04/13/17 08:19 Prothrombin Time 38.4 SEC (9.4-11.4) Prothromb Time International Ratio 3.7 (0.9-1.1) Medications Current Medications Sodium Chloride 1,000 ml @ 1,000 mls/hr 1X ONCE IV Last administered on 08:35; Start 04/12/17 at 08:30; Stop 04/12/17 at 09:29; Status DC Diltiazem HCl (Cardizem) 10 mg 1X ONCE IVP Last administered on 04/12/17 10: 02; Start 04/12/17 at 10:00; Stop 04/12/17 at 10:01; Status DC Diltiazem HCl 125 mg/Dextrose 125 ml @ 0 mls/hr 1X ONCE IV Last administered on 04/12/17 10:26; Start 04/12/17 at 10:00; Stop 04/12/17 at 10:01; Status DC Lidocaine/Sodium Bicarbonate (Buffered Lidocaine 1%) 3 ml 1X ONCE IJ ; Start at 10:00; Stop 04/12/17 at 10:00; Status DC Ondansetron HCl (Zofran) 4 mg PRN Q4HRS PRN IV NAUSEA/VOMITING; Start 04/12/17 at 11:00; Stop 04/13/17 at 10:59 Sodium Chloride 1,000 ml @ 125 mls/hr 1X ONCE IV Last administered on 11:00; Start 04/12/17 at 11:00; Stop 04/12/17 at 18:59; Status DC Ondansetron HCl (Zofran) 4 mg PRN Q8HRS PRN IV NAUSEA/VOMITING; Start 04/12/17 at 12:30 Magnesium Sulfate 50 ml @ 25 mls/hr 1X ONCE IV Last administered on 04/12/17 13:49; Start 04/12/17 at 13:10; Stop 04/12/17 at 15:09; Status DC Famotidine (Pepcid) 20 mg BID IVP Last administered on 04/13/17 08:18; Start 04/12/17 at 21:00 Multivitamins/ Minerals 10 ml/ Folic Acid 1 mg/ Thiamine HCl 100 mg/Potassium Chloride 20 meq/ Dextrose/Lactated Ringer's 1,021.2 ml @ 150 mls/ hr 1X ONCE IV Last administered on 04/12/17 15:59; Start 04/12/17 at 16:00; Stop at 22:48; Status DC Insulin Aspart (NovoLOG) 0-5 UNITS QIDACHS SQ ; Start 04/12/17 at 16:30 Dextrose 12.5 gm PRN Q15MIN PRN IV SEE COMMENTS; Start 04/12/17 at 15:30 Metronidazole 100 ml @ 100 mls/hr Q8HRS IV Last administered on 04/13/17 05: 10; Start 04/12/17 at 16:00 Sodium Chloride 1,000 ml @ 250 mls/hr 1X ONCE IV Last administered on 16:00; Start 04/12/17 at 16:00; Stop 04/12/17 at 19:59; Status DC Sodium Chloride 500 ml @ As Directed STK-MED ONCE .ROUTE Last administered on 04/12/17 15:59; Start 04/12/17 at 15:51; Stop 04/12/17 at 15:52; Status DC Diltiazem HCl 100 mg/Dextrose 100 ml @ 5 mls/hr CONT PRN IV SEE I/O RECORD; Start 04/12/17 at 18:00 Digoxin (Lanoxin) 500 mcg 1X ONCE IV Last administered on 04/12/17 19:12; Start 04/12/17 at 18:45; Stop 04/12/17 at 18:46; Status DC Metoprolol Tartrate (Lopressor) 12.5 mg Q6HRS PO Last administered on 05:10; Start 04/12/17 at 19:00 Potassium Chloride/Sodium Chloride 1,000 ml @ 150 mls/hr Q6H40M IV Last administered on 04/13/17 05:11; Start 04/13/17 at 01:00 Loperamide HCl (Imodium) 2 mg 1X ONCE PO Last administered on 04/13/17 08:18 ; Start 04/13/17 at 08:30; Stop 04/13/17 at 08:31; Status DC Multivitamins/ Minerals 10 ml/ Folic Acid 1 mg/ Thiamine HCl 100 mg/Sodium Chloride 1,011.2 ml @ 0 mls/hr 1X ONCE IV Last administered on 04/13/17 08: 42; Start 04/13/17 at 09:00; Stop 04/13/17 at 09:01; Status DC Lactobacillus Acidophilus (Bacid, Chata-Bid) 2 tab DAILY PO Last administered on 04/13/17 08:18; Start 04/13/17 at 09:00 Active Scripts Active Amlodipine Besylate 10 Mg Tablet 1 Tab PO DAILY Reported Diovan (Valsartan) 320 Mg Tablet 1 Tab PO DAILY Thera-M (Multivits,Th W-Fe,Other Min) 1 Each Tablet 1 Each PO DAILY Metoprolol Tartrate 50 Mg Tablet 1 Tab PO HS Metoprolol Tartrate 100 Mg Tablet 1 Tab PO DAILY Vitamin B-12 (Cyanocobalamin (Vitamin B-12)) 100 Mcg Tablet 100 Mcg PO DAILY Calcium + D3 Er Tablet (Calcium Carb & Cit/Vitamin D3) 1 Each Tablet.er 1 Each PO DAILY Lipitor (Atorvastatin Calcium) 10 Mg Tablet 1 Tab PO DAILY Aspir-Low (Aspirin) 81 Mg Tablet.dr 1 Tab PO DAILY Ascorbic Acid 500 Mg Tablet 500 Mg PO DAILY Coumadin (Warfarin Sodium) 1 Mg Tablet 2 Mg PO DAILYWSUP Vitals/I & O Vital Sign - Last 24 Hours 04/12/17 04/12/17 04/12/17 04/12/17 09:35 10:02 10:05 10:59 Pulse 150 130 119 121 Resp 17 28 14 B/P (MAP) 132/64 (86) 132/64 103/82 (89) 114/55 (74) Pulse Ox 95 97 97 04/12/17 04/12/17 04/12/17 04/12/17 13:29 14:00 14:30 15:00 Temp 98.0 Pulse 121 118 130 138 Resp 20 20 20 20 B/P (MAP) 113/75 (88) 81/56 (64) 80/54 (63) 82/60 (67) Pulse Ox 97 97 97 97 O2 Delivery Room Air Room Air Room Air Room Air 04/12/17 04/12/17 04/12/17 04/12/17 15:30 16:00 16:30 16:55 Pulse 116 121 121 128 Resp 20 20 16 18 B/P (MAP) 85/57 (66) 114/55 (74) 105/64 (78) 114/55 (74) Pulse Ox 97 95 96 95 O2 Delivery Nasal Cannula Nasal Cannula Nasal Cannula Nasal Cannula O2 Flow Rate 2.0 2.0 2.0 2.0 04/12/17 04/12/17 04/12/17 04/12/17 16:56 17:10 17:40 18:40 Pulse 130 141 112 133 Resp 18 26 20 20 B/P (MAP) 85/54 (64) 101/59 (73) 107/74 (85) 98/63 (75) Pulse Ox 96 92 94 93 O2 Delivery Nasal Cannula Nasal Cannula Nasal Cannula Nasal Cannula O2 Flow Rate 2.0 2.0 2.0 2.0 04/12/17 04/12/17 04/12/17 04/12/17 19:05 19:10 19:12 19:48 Temp 97.6 Pulse 120 123 92 Resp 20 20 B/P (MAP) 112/65 (81) 98/63 109/55 (73) Pulse Ox 94 96 O2 Delivery Nasal Cannula Nasal Cannula Room Air O2 Flow Rate 2.0 2.0 04/12/17 04/12/17 04/12/17 04/12/17 20:10 20:40 21:15 21:43 Pulse 90 97 101 101 Resp 18 20 20 B/P (MAP) 90/40 (57) 87/42 (57) 105/54 (71) 105/54 Pulse Ox 99 99 95 O2 Delivery Nasal Cannula Nasal Cannula Nasal Cannula O2 Flow Rate 2.0 2.0 2.0 04/12/17 04/12/17 04/12/17 04/12/17 21:45 22:20 22:40 23:40 Pulse 110 106 101 Resp 20 20 18 B/P (MAP) 98/65 (76) 105/59 (74) 90/41 (57) Pulse Ox 97 96 98 O2 Delivery Nasal Cannula Nasal Cannula Nasal Cannula Nasal Cannula O2 Flow Rate 2.0 2.0 2.0 2.0 04/12/17 04/12/17 04/13/17 04/13/17 23:50 23:50 00:15 01:35 Pulse 99 99 82 96 Resp 20 18 20 B/P (MAP) 104/49 104/49 (67) 110/47 (68) 94/56 (69) Pulse Ox 95 96 95 O2 Delivery Nasal Cannula Nasal Cannula Nasal Cannula O2 Flow Rate 2.0 2.0 2.0 04/13/17 04/13/17 04/13/17 04/13/17 02:05 02:45 04:05 04:05 Pulse 103 89 112 Resp 20 20 18 B/P (MAP) 104/48 (66) 92/47 (62) 93/50 (64) Pulse Ox 98 97 95 O2 Delivery Nasal Cannula Nasal Cannula Nasal Cannula Nasal Cannula O2 Flow Rate 2.0 2.0 2.0 2.0 04/13/17 04/13/17 04/13/17 04/13/17 04:45 05:10 05:35 06:20 Temp 98.4 Pulse 113 105 105 92 Resp 20 20 18 B/P (MAP) 118/65 (82) 118/65 119/67 (84) 98/55 (69) Pulse Ox 95 95 98 O2 Delivery Nasal Cannula Nasal Cannula Nasal Cannula O2 Flow Rate 2.0 2.0 2.0 Intake and Output 04/12/17 04/12/17 04/13/17 15:00 23:00 07:00 Intake Total 2350 ml 1600 ml 2421 ml Output Total 275 ml 950 ml Balance 2350 ml 1325 ml 1471 ml [employer] Apr 13, 2017 09:45
[2017-04-13] MEDS ORDERED: DIGOXIN IV 500 MCG/2 ML AMPUL. IV ONE (10:00)
[2017-04-13] MEDS ORDERED: IV NORMAL SALINE 500ML 500 ML IV ONE (10:00)
[2017-04-13] MEDS: SMZ/TMP 800/160MG TABLET. PO SCH (10:08)
[2017-04-13 11:24] LABS: FECAL OB PT NEGATIVE (NEG)
--- NOTE | 2017-04-13 14:04 | PDOC ---
PROGRESS NOTES Diagnosis Problem Problems Medical Problems: (1) Afib Status: Acute oblems: (1) Afib with RVR (2) supratherapeutic INR (3) acute diarrhea-suspect food poisoning (4) acute renal failure (5) hypomagnesemia (6) Metabolic acidosis-high anion gap (7) SIRS with acute organ dysfunction (8) hyperglycemia Status: Acute Assessment Problems Medical Problems: (1) Afib Status: Acute PLAN CONTINUE IV FLUIDS, HAVE ADDED IN . CONTINUES ON METRONIDAZOLE. OFF CARDENE DRIP DUE TO HYPOTENTION. HOLD COUMADIN FOR ONE MORE DAY. ADVANCED DIET TO CLEAR LIQUIDS. Subjective Feeling a little bit better. Still having large amounts of DIARRHEA. Fecal white cells and cultures pending. C. difficile negative 2 stool Hemoccult negative. Continues with IV fluids no nausea or vomiting. Has been treated has been transiently hypotensive and has required some fluid boluses. No shortness of breath or chest pain. Objective Vital Signs Date Time Temp Pulse Resp B/P (MAP) Pulse Ox O2 Delivery O2 Flow Rate FiO2 04/13/17 12:41 109 13 109/59 (76) 98 Nasal Cannula 2.0 04/13/17 05:35 98.4 Intake and Output 04/13/17 07:00 Intake Total 6371 ml Output Total 1225 ml Balance 5146 ml Intake Oral 1250 ml IV Total 5121 ml Stool Total 1225 ml # Voids 1 Physical Exam cOLOR PALE, EYES CLEAR, TONGUE SLIGHTLY DRY. lUNGS CLEAR TO AUSCULTATION, CV IRREGULAR RHYTHM AND RATE ABDOMEN SOFT, NON TENDER, RECTAL TUBE IN PLASE DRAINING LIQUID BROWN STOOL. EXTREMETIES NO EDEMA. Review of Relevant I have reviewed the following items francheska (where applicable) has been applied. Labs INR 3.7 Laboratory Tests Test 04/12/17 08:35 04/12/17 10:30 04/12/17 10:55 04/12/17 12:40 White Blood Count 6.7 x10^3/uL (4.0-11.0) Red Blood Count 4.97 x10^6/uL (3.50-5.40) Hemoglobin 14.1 g/dL (12.0-15.5) Hematocrit 43.2 % (36.0-47.0) Mean Corpuscular Volume 87 fL (79-100) Mean Corpuscular Hemoglobin 28 pg (25-35) Mean Corpuscular Hemoglobin Concent 33 g/dL (31-37) Red Cell Distribution Width 14.7 % (11.5-14.5) Platelet Count 219 x10^3/uL (140-400) Neutrophils (%) (Auto) 81 % (31-73) Lymphocytes (%) (Auto) 10 % (24-48) Monocytes (%) (Auto) 8 % (0-9) Eosinophils (%) (Auto) 0 % (0-3) Basophils (%) (Auto) 0 % (0-3) Neutrophils # (Auto) 5.4 x10^3uL (1.8-7.7) Lymphocytes # (Auto) 0.7 x10^3/uL (1.0-4.8) Monocytes # (Auto) 0.5 x10^3/uL (0.0-1.1) Eosinophils # (Auto) 0.0 x10^3/uL (0.0-0.7) Basophils # (Auto) 0.0 x10^3/uL (0.0-0.2) Prothrombin Time 54.9 SEC (9.4-11.4) Prothromb Time International Ratio 5.3 (0.9-1.1) Activated Partial Thromboplast Time 40 SEC (23-33) Sodium Level 141 mmol/L (136-145) Potassium Level 3.7 mmol/L (3.5-5.1) Chloride Level 105 mmol/L (98-107) Carbon Dioxide Level 15 mmol/L (21-32) Anion Gap 21 (6-14) Blood Urea Nitrogen 43 mg/dL (7-20) Creatinine 2.8 mg/dL (0.6-1.0) Estimated GFR (Cockcroft-Gault) 16.0 Glucose Level 242 mg/dL (70-99) Lactic Acid Level 6.0 mmol/L (0.4-2.0) 2.7 mmol/L (0.4-2.0) Calcium Level 9.0 mg/dL (8.5-10.1) Magnesium Level 1.6 mg/dL (1.8-2.4) Total Bilirubin 0.5 mg/dL (0.2-1.0) Direct Bilirubin 0.2 mg/dL (0.0-0.2) Aspartate Amino Transf (AST/SGOT) 29 U/L (15-37) Alanine Aminotransferase (ALT/SGPT) 25 U/L (14-59) Alkaline Phosphatase 65 U/L (46-116) Creatine Kinase 249 U/L (26-192) Creatine Kinase MB (Mass) 9.9 ng/mL (0.0-3.6) Creatine Kinase MB Relative Index 4.0 % (0-4) Troponin I Quantitative < 0.017 ng/mL (0-0.055) KC-Hoz-I-Type Natriuretic Peptide 5352 pg/mL (0-449) Total Protein 7.6 g/dL (6.4-8.2) Albumin 3.4 g/dL (3.4-5.0) Lipase 55 U/L (73-393) Thyroid Stimulating Hormone (TSH) 1.386 uIU/mL (0.358-3.740) Blood Gas pH 7.40 (7.35-7.45) Blood Gas PCO2 20 mmHg (35-45) Blood Gas PO2 65 mmHg (71-100) Blood Gas HCO3 12 mmol/L (22-26) Arterial Bld O2 Saturation (Calc) 93 % (92-99) FiO2 21 % Urine Collection Type U cath Urine Color Yellow Urine Clarity Hazy Urine pH 5.0 Urine Specific [place] 1.020 Urine Protein Neg (NEG-TRACE) Urine Glucose (UA) Neg mg/dL (NEG) Urine Ketones (Stick) Trace mg/dL (NEG) Urine Blood Mod (NEG) Urine Nitrite Neg (NEG) Urine Bilirubin Neg (NEG) Urine Urobilinogen Dipstick 0.2 mg/dL (0.2 mg/dL) Urine Leukocyte Esterase Neg (NEG) Urine RBC 3-5 /HPF (0-2) Urine WBC 0 /HPF (0-4) Urine Squamous Epithelial Cells Occ /LPF Urine Amorphous Sediment Present /HPF Urine Bacteria Few /HPF (0-FEW) Stool Occult Blood Negative (NEG) Test 04/12/17 14:00 04/12/17 15:36 04/12/17 15:48 04/12/17 16:55 Nasal Screen MRSA (PCR) Negative (Negative) Clostridium difficile Toxin (PCR) Negative (Negative) Negative (Negative) Troponin I Quantitative < 0.017 ng/mL (0-0.055) Glucose (Fingerstick) 144 mg/dL (70-99) Test 04/12/17 17:55 7/11/17 20:04 04/12/17 22:05 04/13/17 05:45 White Blood Count 12.1 x10^3/uL (4.0-11.0) 11.2 x10^3/uL (4.0-11.0) Red Blood Count 4.64 x10^6/uL (3.50-5.40) 4.50 x10^6/uL (3.50-5.40) Hemoglobin 13.1 g/dL (12.0-15.5) 12.7 g/dL (12.0-15.5) Hematocrit 39.9 % (36.0-47.0) 38.8 % (36.0-47.0) Mean Corpuscular Volume 86 fL (79-100) 86 fL (79-100) Mean Corpuscular Hemoglobin 28 pg (25-35) 28 pg (25-35) Mean Corpuscular Hemoglobin Concent 33 g/dL (31-37) 33 g/dL (31-37) Red Cell Distribution Width 14.5 % (11.5-14.5) 14.3 % (11.5-14.5) Platelet Count 201 x10^3/uL (140-400) 191 x10^3/uL (140-400) Neutrophils (%) (Auto) 85 % (31-73) 89 % (31-73) Lymphocytes (%) (Auto) 10 % (24-48) 7 % (24-48) Monocytes (%) (Auto) 5 % (0-9) 3 % (0-9) Eosinophils (%) (Auto) 0 % (0-3) 1 % (0-3) Basophils (%) (Auto) 0 % (0-3) 0 % (0-3) Neutrophils # (Auto) 10.3 x10^3uL (1.8-7.7) 10.0 x10^3uL (1.8-7.7) Lymphocytes # (Auto) 1.2 x10^3/uL (1.0-4.8) 0.8 x10^3/uL (1.0-4.8) Monocytes # (Auto) 0.6 x10^3/uL (0.0-1.1) 0.3 x10^3/uL (0.0-1.1) Eosinophils # (Auto) 0.0 x10^3/uL (0.0-0.7) 0.1 x10^3/uL (0.0-0.7) Basophils # (Auto) 0.0 x10^3/uL (0.0-0.2) 0.0 x10^3/uL (0.0-0.2) Segmented Neutrophils % 44 % (35-66) Band Neutrophils % 42 % (0-9) Lymphocytes % 8 % (24-48) Monocytes % 6 % (0-10) Platelet Estimate Adequate (ADEQUATE) Ovalocytes Few Charu Cells Few Magnesium Level 2.4 mg/dL (1.8-2.4) 2.1 mg/dL (1.8-2.4) AV-Ved-F-Type Natriuretic Peptide 4233 pg/mL (0-449) Glucose (Fingerstick) 165 mg/dL (70-99) Troponin I Quantitative < 0.017 ng/mL (0-0.055) Sodium Level 138 mmol/L (136-145) Potassium Level 3.8 mmol/L (3.5-5.1) Chloride Level 107 mmol/L (98-107) Carbon Dioxide Level 17 mmol/L (21-32) Anion Gap 14 (6-14) Blood Urea Nitrogen 41 mg/dL (7-20) Creatinine 1.9 mg/dL (0.6-1.0) Estimated GFR (Cockcroft-Gault) 25.1 BUN/Creatinine Ratio 22 (6-20) Glucose Level 111 mg/dL (70-99) Calcium Level 8.2 mg/dL (8.5-10.1) Total Bilirubin 0.5 mg/dL (0.2-1.0) Aspartate Amino Transf (AST/SGOT) 30 U/L (15-37) Alanine Aminotransferase (ALT/SGPT) 22 U/L (14-59) Alkaline Phosphatase 62 U/L (46-116) Total Protein 6.6 g/dL (6.4-8.2) Albumin 2.8 g/dL (3.4-5.0) Albumin/Globulin Ratio 0.7 (1.0-1.7) Triglycerides Level 73 mg/dL (0-150) Cholesterol Level 99 mg/dL (0-200) LDL Cholesterol, Calculated 33 mg/dL (0-100) VLDL Cholesterol, Calculated 14 mg/dL (0-40) Non-HDL Cholesterol Calculated 47 mg/dL (0-129) HDL Cholesterol 52 mg/dL (40-60) Cholesterol/HDL Ratio 1.0 Test 04/13/17 08:19 04/13/17 10:45 Prothrombin Time 38.4 SEC (9.4-11.4) Prothromb Time International Ratio 3.7 (0.9-1.1) Stool Occult Blood Negative (NEG) Medications Current Medications Sodium Chloride 1,000 ml @ 1,000 mls/hr 1X ONCE IV Last administered on 08:35; Start 04/12/17 at 08:30; Stop 04/12/17 at 09:29; Status DC Diltiazem HCl (Cardizem) 10 mg 1X ONCE IVP Last administered on 04/12/17 10: 02; Start 04/12/17 at 10:00; Stop 04/12/17 at 10:01; Status DC Diltiazem HCl 125 mg/Dextrose 125 ml @ 0 mls/hr 1X ONCE IV Last administered on 04/12/17 10:26; Start 04/12/17 at 10:00; Stop 04/12/17 at 10:01; Status DC Lidocaine/Sodium Bicarbonate (Buffered Lidocaine 1%) 3 ml 1X ONCE IJ ; Start at 10:00; Stop 04/12/17 at 10:00; Status DC Ondansetron HCl (Zofran) 4 mg PRN Q4HRS PRN IV NAUSEA/VOMITING; Start 04/12/17 at 11:00; Stop 04/13/17 at 10:14; Status DC Sodium Chloride 1,000 ml @ 125 mls/hr 1X ONCE IV Last administered on 11:00; Start 04/12/17 at 11:00; Stop 04/12/17 at 18:59; Status DC Ondansetron HCl (Zofran) 4 mg PRN Q8HRS PRN IV NAUSEA/VOMITING; Start 04/12/17 at 12:30 Magnesium Sulfate 50 ml @ 25 mls/hr 1X ONCE IV Last administered on 04/12/17 13:49; Start 04/12/17 at 13:10; Stop 04/12/17 at 15:09; Status DC Famotidine (Pepcid) 20 mg BID IVP Last administered on 04/13/17 08:18; Start 04/12/17 at 21:00; Stop 04/13/17 at 10:19; Status DC Multivitamins/ Minerals 10 ml/ Folic Acid 1 mg/ Thiamine HCl 100 mg/Potassium Chloride 20 meq/ Dextrose/Lactated Ringer's 1,021.2 ml @ 150 mls/ hr 1X ONCE IV Last administered on 04/12/17 15:59; Start 04/12/17 at 16:00; Stop at 22:48; Status DC Insulin Aspart (NovoLOG) 0-5 UNITS QIDACHS SQ ; Start 04/12/17 at 16:30 Dextrose 12.5 gm PRN Q15MIN PRN IV SEE COMMENTS; Start 04/12/17 at 15:30 Metronidazole 100 ml @ 100 mls/hr Q8HRS IV Last administered on 04/13/17 05: 10; Start 04/12/17 at 16:00 Sodium Chloride 1,000 ml @ 250 mls/hr 1X ONCE IV Last administered on 16:00; Start 04/12/17 at 16:00; Stop 04/12/17 at 19:59; Status DC Sodium Chloride 500 ml @ As Directed STK-MED ONCE .ROUTE Last administered on 04/12/17 15:59; Start 04/12/17 at 15:51; Stop 04/12/17 at 15:52; Status DC Diltiazem HCl 100 mg/Dextrose 100 ml @ 5 mls/hr CONT PRN IV SEE I/O RECORD; Start 04/12/17 at 18:00 Digoxin (Lanoxin) 500 mcg 1X ONCE IV Last administered on 04/12/17 19:12; Start 04/12/17 at 18:45; Stop 04/12/17 at 18:46; Status DC Metoprolol Tartrate (Lopressor) 12.5 mg Q6HRS PO Last administered on 12:27; Start 04/12/17 at 19:00 Potassium Chloride/Sodium Chloride 1,000 ml @ 175 mls/hr Q5H43M IV Last administered on 04/13/17 05:11; Start 04/13/17 at 01:00 Loperamide HCl (Imodium) 2 mg 1X ONCE PO Last administered on 04/13/17 08:18 ; Start 04/13/17 at 08:30; Stop 04/13/17 at 08:31; Status DC Multivitamins/ Minerals 10 ml/ Folic Acid 1 mg/ Thiamine HCl 100 mg/Sodium Chloride 1,011.2 ml @ 0 mls/hr 1X ONCE IV Last administered on 04/13/17 08: 42; Start 04/13/17 at 09:00; Stop 04/13/17 at 09:01; Status DC Lactobacillus Acidophilus (Bacid, Chata-Bid) 2 tab DAILY PO Last administered on 04/13/17 08:18; Start 04/13/17 at 09:00 Digoxin (Lanoxin) 125 mcg ONCE ONCE IV Last administered on 04/13/17 10:07; Start 04/13/17 at 10:00; Stop 04/13/17 at 10:01; Status DC Sodium Chloride 500 ml @ 0 mls/hr 1X ONCE IV Last administered on 04/13/17 10 :07; Start 04/13/17 at 10:00; Stop 04/13/17 at 10:01; Status DC Trimethoprim/ Sulfamethoxazole (Bactrim Ds) 1 tab DAILY PO Last administered on 04/13/17 10:08; Start 04/13/17 at 10:00 Famotidine (Pepcid) 20 mg BID PO ; Start 04/13/17 at 21:00 Active Scripts Active Amlodipine Besylate 10 Mg Tablet 1 Tab PO DAILY Reported Diovan (Valsartan) 320 Mg Tablet 1 Tab PO DAILY Thera-M (Multivits, W-Fe,Other Min) 1 Each Tablet 1 Each PO DAILY Metoprolol Tartrate 50 Mg Tablet 1 Tab PO HS Metoprolol Tartrate 100 Mg Tablet 1 Tab PO DAILY Vitamin B-12 (Cyanocobalamin (Vitamin B-12)) 100 Mcg Tablet 100 Mcg PO DAILY Calcium + D3 Er Tablet (Calcium Carb & Cit/Vitamin D3) 1 Each Tablet.er 1 Each PO DAILY Lipitor (Atorvastatin Calcium) 10 Mg Tablet 1 Tab PO DAILY Aspir-Low (Aspirin) 81 Mg Tablet.dr 1 Tab PO DAILY Ascorbic Acid 500 Mg Tablet 500 Mg PO DAILY Coumadin (Warfarin Sodium) 1 Mg Tablet 2 Mg PO DAILYWSUP Vitals/I & O Vital Sign - Last 24 Hours 04/12/17 04/12/17 04/12/17 04/12/17 14:00 14:30 15:00 15:30 Pulse 118 130 138 116 Resp 20 20 20 20 B/P (MAP) 81/56 (64) 80/54 (63) 82/60 (67) 85/57 (66) Pulse Ox 97 97 97 97 O2 Delivery Room Air Room Air Room Air Nasal Cannula O2 Flow Rate 2.0 04/12/17 04/12/17 04/12/17 04/12/17 16:00 16:30 16:55 16:56 Pulse 121 121 128 130 Resp 20 16 18 18 B/P (MAP) 114/55 (74) 105/64 (78) 114/55 (74) 85/54 (64) Pulse Ox 95 96 95 96 O2 Delivery Nasal Cannula Nasal Cannula Nasal Cannula Nasal Cannula O2 Flow Rate 2.0 2.0 2.0 2.0 04/12/17 04/12/17 04/12/17 04/12/17 17:10 17:40 18:40 19:05 Pulse 141 112 133 Resp 26 20 20 B/P (MAP) 101/59 (73) 107/74 (85) 98/63 (75) Pulse Ox 92 94 93 O2 Delivery Nasal Cannula Nasal Cannula Nasal Cannula Nasal Cannula O2 Flow Rate 2.0 2.0 2.0 2.0 04/12/17 04/12/17 04/12/17 04/12/17 19:10 19:12 19:48 20:10 Temp 97.6 Pulse 120 123 92 90 Resp 20 20 18 B/P (MAP) 112/65 (81) 98/63 109/55 (73) 90/40 (57) Pulse Ox 94 96 99 O2 Delivery Nasal Cannula Room Air Nasal Cannula O2 Flow Rate 2.0 2.0 04/12/17 04/12/17 04/12/17 04/12/17 20:40 21:15 21:43 21:45 Pulse 97 101 101 110 Resp 20 20 20 B/P (MAP) 87/42 (57) 105/54 (71) 105/54 98/65 (76) Pulse Ox 99 95 97 O2 Delivery Nasal Cannula Nasal Cannula Nasal Cannula O2 Flow Rate 2.0 2.0 2.0 04/12/17 04/12/17 04/12/1711/17 22:20 22:40 23:40 23:50 Pulse 106 101 99 Resp 20 18 B/P (MAP) 105/59 (74) 90/41 (57) 104/49 Pulse Ox 96 98 O2 Delivery Nasal Cannula Nasal Cannula Nasal Cannula O2 Flow Rate 2.0 2.0 2.0 04/12/17 04/13/17 04/13/17 04/13/17 23:50 00:15 01:35 02:05 Pulse 99 82 96 103 Resp 20 18 20 20 B/P (MAP) 104/49 (67) 110/47 (68) 94/56 (69) 104/48 (66) Pulse Ox 95 96 95 98 O2 Delivery Nasal Cannula Nasal Cannula Nasal Cannula Nasal Cannula O2 Flow Rate 2.0 2.0 2.0 2.0 04/13/17 04/13/17 04/13/17 04/13/17 02:45 04:05 04:05 04:45 Pulse 89 112 113 Resp 20 18 20 B/P (MAP) 92/47 (62) 93/50 (64) 118/65 (82) Pulse Ox 97 95 95 O2 Delivery Nasal Cannula Nasal Cannula Nasal Cannula Nasal Cannula O2 Flow Rate 2.0 2.0 2.0 2.0 04/13/17 04/13/17 04/13/17 04/13/17 05:10 05:35 06:20 07:41 Temp 98.4 Pulse 105 105 92 102 Resp 20 18 18 B/P (MAP) 118/65 119/67 (84) 98/55 (69) 93/52 (66) Pulse Ox 95 98 96 O2 Delivery Nasal Cannula Nasal Cannula Nasal Cannula O2 Flow Rate 2.0 2.0 2.0 04/13/17 04/13/17 04/13/17 04/13/17 08:00 08:21 09:11 10:07 Pulse 116 114 113 Resp 20 20 B/P (MAP) 100/63 (75) 74/50 (58) 89/61 Pulse Ox 97 97 O2 Delivery Nasal Cannula Nasal Cannula Nasal Cannula O2 Flow Rate 2.0 2.0 2.0 04/13/17 04/13/17 04/13/17 04/13/17 10:40 11:40 12:19 12:23 Pulse 91 112 91 Resp 13 13 13 B/P (MAP) 112/63 (79) 120/69 (86) 112/63 (79) Pulse Ox 94 95 94 O2 Delivery Nasal Cannula Nasal Cannula Nasal Cannula Nasal Cannula O2 Flow Rate 2.0 2.0 2.0 2.0 04/13/17 04/13/17 12:27 12:41 Pulse 112 109 Resp 13 B/P (MAP) 120/63 109/59 (76) Pulse Ox 98 O2 Delivery Nasal Cannula O2 Flow Rate 2.0 Intake and Output 04/12/17 04/12/17 04/13/17 15:00 23:00 07:00 Intake Total 2350 ml 1600 ml 2421 ml Output Total 275 ml 950 ml Balance 2350 ml 1325 ml 1471 ml NATASHA PALOMINO DO Apr 13, 2017 14:04
[2017-04-13] MEDS ORDERED: FAMOTIDINE 20 MG TABLET PO SCH (21:00)
[2017-04-14] VITALS (24 sets, daily range): BP systolic 82–143; BP diastolic 48–86
[2017-04-14] MEDS: METOPROLOL TART IMMED RELEASE 25 MG TABLET PO SCH ×4 (00:13→21:29)
[2017-04-14] MEDS: POTASSIUM CL 20MEQ IN 0.9%NACL 1,000 ML IV SCH ×5 (01:09→21:29)
[2017-04-14 06:22] LABS: BASO % 0 % (0-3); EOS # 0.1 x10^3/uL (0.0-0.7); EOS % 1 % (0-3); HEMATOCRIT 35.3 % (36.0-47.0); HEMOGLOBIN 11.4 g/dL (12.0-15.5); LYMPH # 1.1 x10^3/uL (1.0-4.8); LYMPH % 8 % (24-48); MEAN CORPUSCULAR HEMOGLOBIN 28 pg (25-35); MEAN CORPUSCULAR HGB CONC 32 g/dL (31-37); MEAN CORPUSCULAR VOLUME 86 fL (79-100); MONO # 0.5 x10^3/uL (0.0-1.1); MONO % 4 % (0-9); NEUT # 12.4 x10^3uL (1.8-7.7); NEUT % 88 % (31-73); PLATELET COUNT 182 x10^3/uL (140-400); RED BLOOD COUNT 4.09 x10^6/uL (3.50-5.40); RED CELL DISTRIBUTION WIDTH 14.9 % (11.5-14.5); WHITE BLOOD COUNT 14.1 x10^3/uL (4.0-11.0)
[2017-04-14 06:32] LABS: ALBUMIN 2.6 g/dL (3.4-5.0); ALBUMIN/GLOBULIN RATIO 0.7 (1.0-1.7); CALCIUM 7.8 mg/dL (8.5-10.1); CREATININE 1.3 mg/dL (0.6-1.0); GFR 38.8; MAGNESIUM 1.9 mg/dL (1.8-2.4); TOTAL BILIRUBIN 0.4 mg/dL (0.2-1.0); TOTAL PROTEIN 6.3 g/dL (6.4-8.2)
[2017-04-14] MEDS: INSULIN ASPART 300 UNITS/3 ML INSULN.PEN SQ SCH (07:30)
[2017-04-14] MEDS: LACTOBACILLUS ACIDOPH & BULGAR 1 TABLET. PO SCH (08:15)
[2017-04-14] MEDS: SMZ/TMP 800/160MG TABLET. PO SCH (08:16)
[2017-04-14] MEDS: FAMOTIDINE 20 MG TABLET PO SCH (08:16)
[2017-04-14] MEDS ORDERED: ENOXAPARIN ** NOTE DOSE ** SYRINGE SQ SCH (09:00)
[2017-04-14] MEDS ORDERED: CIPROFLOXACIN 200MG PREMIX 100 ML IV SCH (09:30)
--- NOTE | 2017-04-14 09:33 | PDOC ---
PROGRESS NOTES Diagnosis Problem Problems Medical Problems: (1) Afib Status: Acute Assessment Problems Medical Problems: (1) Afib Status: Acute 1. Atrial fibrillation with RVR - INR today subtherapeutic, start lovenox, resume warfarin, resume coumadin. Increase metoprolol as tolerated. If unable to tolerate increased beta tonja, suggest trial amiodarone. 2. dyspnea - mild, decrease IVF and check CXR. 3. coagulopathy -as above 4. Acute renal failure secondary to diarrhea and dehydration - resolved, GFR up to 38.8 (Class III). Diarrhea improved but not resolved. Decrease IVF and monitor. 5. sepsis/lactic acidosis/diarrhea - per PCP 6. hypertension - pressures improved with IVF. attempt to increase metoprolol for afib control. monitor BP closely. 7. hyperlipidemia - controlled Called MAC, patient has history of moderate MR/TR, no recent echo, history of persistent a fib, no documented antiarrhythmic or ECV history. Problems: Subjective mild dyspnea. continued diarrhea but down to 2 episodes last night and none this am. no chest pain, palpitations or lightheadedness. ambulating with PT. Objective tele - afib with rates 90s - 110s. Vital Signs Date Time Temp Pulse Resp B/P (MAP) Pulse Ox O2 Delivery O2 Flow Rate FiO2 04/14/17 06:12 97 18 122/76 (91) 98 Nasal Cannula 2.0 04/13/17 19:13 98.9 Intake and Output 04/14/17 07:00 Intake Total 4325 ml Output Total 2752 ml Balance 1573 ml Intake Oral 1425 ml IV Total 2900 ml Output Urine Total 751 ml Stool Total 1001 ml Emesis 1000 ml # Voids 2 # Bowel Movements 2 Abdomen: Normal bowel sounds, Soft, No tenderness Heart: Other (IRR, No gallops, clicks or rubs) Extremities: No cyanosis, Normal pulses, Other (trace edema) General: Alert, Oriented X3, Cooperative, No acute distress Lungs: Clear to auscultation Neuro: Normal gait, Normal speech, Strength at 5/5 X4 ext Psych/Mental Status: Mental status NL, Mood NL Review of Relevant I have reviewed the following items francheska (where applicable) has been applied. Labs Laboratory Tests Test 04/12/17 10:30 04/12/17 10:55 04/12/17 12:40 04/12/17 14:00 Blood Gas pH 7.40 (7.35-7.45) Blood Gas PCO2 20 mmHg (35-45) Blood Gas PO2 65 mmHg (71-100) Blood Gas HCO3 12 mmol/L (22-26) Arterial Bld O2 Saturation (Calc) 93 % (92-99) FiO2 21 % Urine Collection Type U cath Urine Color Yellow Urine Clarity Hazy Urine pH 5.0 Urine Specific [place] 1.020 Urine Protein Neg (NEG-TRACE) Urine Glucose (UA) Neg mg/dL (NEG) Urine Ketones (Stick) Trace mg/dL (NEG) Urine Blood Mod (NEG) Urine Nitrite Neg (NEG) Urine Bilirubin Neg (NEG) Urine Urobilinogen Dipstick 0.2 mg/dL (0.2 mg/dL) Urine Leukocyte Esterase Neg (NEG) Urine RBC 3-5 /HPF (0-2) Urine WBC 0 /HPF (0-4) Urine Squamous Epithelial Cells Occ /LPF Urine Amorphous Sediment Present /HPF Urine Bacteria Few /HPF (0-FEW) Stool Occult Blood Negative (NEG) Lactic Acid Level 2.7 mmol/L (0.4-2.0) Nasal Screen MRSA (PCR) Negative (Negative) Clostridium difficile Toxin (PCR) Negative (Negative) Test 04/12/17 15:36 04/12/17 15:48 04/12/17 16:55 04/12/17 17:55 Clostridium difficile Toxin (PCR) Negative (Negative) Troponin I Quantitative < 0.017 ng/mL (0-0.055) Glucose (Fingerstick) 144 mg/dL (70-99) White Blood Count 12.1 x10^3/uL (4.0-11.0) Red Blood Count 4.64 x10^6/uL (3.50-5.40) Hemoglobin 13.1 g/dL (12.0-15.5) Hematocrit 39.9 % (36.0-47.0) Mean Corpuscular Volume 86 fL (79-100) Mean Corpuscular Hemoglobin 28 pg (25-35) Mean Corpuscular Hemoglobin Concent 33 g/dL (31-37) Red Cell Distribution Width 14.5 % (11.5-14.5) Platelet Count 201 x10^3/uL (140-400) Neutrophils (%) (Auto) 85 % (31-73) Lymphocytes (%) (Auto) 10 % (24-48) Monocytes (%) (Auto) 5 % (0-9) Eosinophils (%) (Auto) 0 % (0-3) Basophils (%) (Auto) 0 % (0-3) Neutrophils # (Auto) 10.3 x10^3uL (1.8-7.7) Lymphocytes # (Auto) 1.2 x10^3/uL (1.0-4.8) Monocytes # (Auto) 0.6 x10^3/uL (0.0-1.1) Eosinophils # (Auto) 0.0 x10^3/uL (0.0-0.7) Basophils # (Auto) 0.0 x10^3/uL (0.0-0.2) Segmented Neutrophils % 44 % (35-66) Band Neutrophils % 42 % (0-9) Lymphocytes % 8 % (24-48) Monocytes % 6 % (0-10) Platelet Estimate Adequate (ADEQUATE) Ovalocytes Few Charu Cells Few Magnesium Level 2.4 mg/dL (1.8-2.4) NK-Kcs-A-Type Natriuretic Peptide 4233 pg/mL (0-449) Test 04/12/17 20:04 04/12/17 22:05 04/13/17 05:45 04/13/17 08:19 Glucose (Fingerstick) 165 mg/dL (70-99) Troponin I Quantitative < 0.017 ng/mL (0-0.055) White Blood Count 11.2 x10^3/uL (4.0-11.0) Red Blood Count 4.50 x10^6/uL (3.50-5.40) Hemoglobin 12.7 g/dL (12.0-15.5) Hematocrit 38.8 % (36.0-47.0) Mean Corpuscular Volume 86 fL (79-100) Mean Corpuscular Hemoglobin 28 pg (25-35) Mean Corpuscular Hemoglobin Concent 33 g/dL (31-37) Red Cell Distribution Width 14.3 % (11.5-14.5) Platelet Count 191 x10^3/uL (140-400) Neutrophils (%) (Auto) 89 % (31-73) Lymphocytes (%) (Auto) 7 % (24-48) Monocytes (%) (Auto) 3 % (0-9) Eosinophils (%) (Auto) 1 % (0-3) Basophils (%) (Auto) 0 % (0-3) Neutrophils # (Auto) 10.0 x10^3uL (1.8-7.7) Lymphocytes # (Auto) 0.8 x10^3/uL (1.0-4.8) Monocytes # (Auto) 0.3 x10^3/uL (0.0-1.1) Eosinophils # (Auto) 0.1 x10^3/uL (0.0-0.7) Basophils # (Auto) 0.0 x10^3/uL (0.0-0.2) Sodium Level 138 mmol/L (136-145) Potassium Level 3.8 mmol/L (3.5-5.1) Chloride Level 107 mmol/L (98-107) Carbon Dioxide Level 17 mmol/L (21-32) Anion Gap 14 (6-14) Blood Urea Nitrogen 41 mg/dL (7-20) Creatinine 1.9 mg/dL (0.6-1.0) Estimated GFR (Cockcroft-Gault) 25.1 BUN/Creatinine Ratio 22 (6-20) Glucose Level 111 mg/dL (70-99) Calcium Level 8.2 mg/dL (8.5-10.1) Magnesium Level 2.1 mg/dL (1.8-2.4) Total Bilirubin 0.5 mg/dL (0.2-1.0) Aspartate Amino Transf (AST/SGOT) 30 U/L (15-37) Alanine Aminotransferase (ALT/SGPT) 22 U/L (14-59) Alkaline Phosphatase 62 U/L (46-116) Total Protein 6.6 g/dL (6.4-8.2) Albumin 2.8 g/dL (3.4-5.0) Albumin/Globulin Ratio 0.7 (1.0-1.7) Triglycerides Level 73 mg/dL (0-150) Cholesterol Level 99 mg/dL (0-200) LDL Cholesterol, Calculated 33 mg/dL (0-100) VLDL Cholesterol, Calculated 14 mg/dL (0-40) Non-HDL Cholesterol Calculated 47 mg/dL (0-129) HDL Cholesterol 52 mg/dL (40-60) Cholesterol/HDL Ratio 1.0 Prothrombin Time 38.4 SEC (9.4-11.4) Prothromb Time International Ratio 3.7 (0.9-1.1) Test 04/13/17 10:45 04/13/17 20:55 04/14/17 05:35 Stool Occult Blood Negative (NEG) Glucose (Fingerstick) 113 mg/dL (70-99) White Blood Count 14.1 x10^3/uL (4.0-11.0) Red Blood Count 4.09 x10^6/uL (3.50-5.40) Hemoglobin 11.4 g/dL (12.0-15.5) Hematocrit 35.3 % (36.0-47.0) Mean Corpuscular Volume 86 fL (79-100) Mean Corpuscular Hemoglobin 28 pg (25-35) Mean Corpuscular Hemoglobin Concent 32 g/dL (31-37) Red Cell Distribution Width 14.9 % (11.5-14.5) Platelet Count 182 x10^3/uL (140-400) Neutrophils (%) (Auto) 88 % (31-73) Lymphocytes (%) (Auto) 8 % (24-48) Monocytes (%) (Auto) 4 % (0-9) Eosinophils (%) (Auto) 1 % (0-3) Basophils (%) (Auto) 0 % (0-3) Neutrophils # (Auto) 12.4 x10^3uL (1.8-7.7) Lymphocytes # (Auto) 1.1 x10^3/uL (1.0-4.8) Monocytes # (Auto) 0.5 x10^3/uL (0.0-1.1) Eosinophils # (Auto) 0.1 x10^3/uL (0.0-0.7) Basophils # (Auto) 0.0 x10^3/uL (0.0-0.2) Prothrombin Time 17.2 SEC (9.4-11.4) Prothromb Time International Ratio 1.7 (0.9-1.1) Sodium Level 139 mmol/L (136-145) Potassium Level 4.0 mmol/L (3.5-5.1) Chloride Level 112 mmol/L (98-107) Carbon Dioxide Level 14 mmol/L (21-32) Anion Gap 13 (6-14) Blood Urea Nitrogen 24 mg/dL (7-20) Creatinine 1.3 mg/dL (0.6-1.0) Estimated GFR (Cockcroft-Gault) 38.8 BUN/Creatinine Ratio 18 (6-20) Glucose Level 103 mg/dL (70-99) Calcium Level 7.8 mg/dL (8.5-10.1) Magnesium Level 1.9 mg/dL (1.8-2.4) Total Bilirubin 0.4 mg/dL (0.2-1.0) Aspartate Amino Transf (AST/SGOT) 24 U/L (15-37) Alanine Aminotransferase (ALT/SGPT) 22 U/L (14-59) Alkaline Phosphatase 76 U/L (46-116) Total Protein 6.3 g/dL (6.4-8.2) Albumin 2.6 g/dL (3.4-5.0) Albumin/Globulin Ratio 0.7 (1.0-1.7) Microbiology 04/12/17 Blood Culture - Preliminary, Resulted NO GROWTH AFTER 1 DAY Medications Current Medications Sodium Chloride 1,000 ml @ 1,000 mls/hr 1X ONCE IV Last administered on 08:35; Start 04/12/17 at 08:30; Stop 04/12/17 at 09:29; Status DC Diltiazem HCl (Cardizem) 10 mg 1X ONCE IVP Last administered on 04/12/17 10: 02; Start 04/12/17 at 10:00; Stop 04/12/17 at 10:01; Status DC Diltiazem HCl 125 mg/Dextrose 125 ml @ 0 mls/hr 1X ONCE IV Last administered on 04/12/17 10:26; Start 04/12/17 at 10:00; Stop 04/12/17 at 10:01; Status DC Lidocaine/Sodium Bicarbonate (Buffered Lidocaine 1%) 3 ml 1X ONCE IJ ; Start at 10:00; Stop 04/12/17 at 10:00; Status DC Ondansetron HCl (Zofran) 4 mg PRN Q4HRS PRN IV NAUSEA/VOMITING; Start 04/12/17 at 11:00; Stop 04/13/17 at 10:14; Status DC Sodium Chloride 1,000 ml @ 125 mls/hr 1X ONCE IV Last administered on 11:00; Start 04/12/17 at 11:00; Stop 04/12/17 at 18:59; Status DC Ondansetron HCl (Zofran) 4 mg PRN Q8HRS PRN IV NAUSEA/VOMITING; Start 04/12/17 at 12:30 Magnesium Sulfate 50 ml @ 25 mls/hr 1X ONCE IV Last administered on 04/12/17 13:49; Start 04/12/17 at 13:10; Stop 04/12/17 at 15:09; Status DC Famotidine (Pepcid) 20 mg BID IVP Last administered on 04/13/17 08:18; Start 04/12/17 at 21:00; Stop 04/13/17 at 10:19; Status DC Multivitamins/ Minerals 10 ml/ Folic Acid 1 mg/ Thiamine HCl 100 mg/Potassium Chloride 20 meq/ Dextrose/Lactated Ringer's 1,021.2 ml @ 150 mls/ hr 1X ONCE IV Last administered on 04/12/17 15:59; Start 04/12/17 at 16:00; Stop at 22:48; Status DC Insulin Aspart (NovoLOG) 0-5 UNITS QIDACHS SQ ; Start 04/12/17 at 16:30; Stop at 08:19; Status DC Dextrose 12.5 gm PRN Q15MIN PRN IV SEE COMMENTS; Start 04/12/17 at 15:30; Stop 04/14/17 at 08:19; Status DC Metronidazole 100 ml @ 100 mls/hr Q8HRS IV Last administered on 04/14/17 05: 42; Start 04/12/17 at 16:00 Sodium Chloride 1,000 ml @ 250 mls/hr 1X ONCE IV Last administered on 16:00; Start 04/12/17 at 16:00; Stop 04/12/17 at 19:59; Status DC Sodium Chloride 500 ml @ As Directed STK-MED ONCE .ROUTE Last administered on 04/12/17 15:59; Start 04/12/17 at 15:51; Stop 04/12/17 at 15:52; Status DC Diltiazem HCl 100 mg/Dextrose 100 ml @ 5 mls/hr CONT PRN IV SEE I/O RECORD; Start 04/12/17 at 18:00 Digoxin (Lanoxin) 500 mcg 1X ONCE IV Last administered on 04/12/17 19:12; Start 04/12/17 at 18:45; Stop 04/12/17 at 18:46; Status DC Metoprolol Tartrate (Lopressor) 12.5 mg Q6HRS PO Last administered on 05:42; Start 04/12/17 at 19:00 Potassium Chloride/Sodium Chloride 1,000 ml @ 175 mls/hr Q5H43M IV Last administered on 04/14/17 06:30; Start 04/13/17 at 01:00 Loperamide HCl (Imodium) 2 mg 1X ONCE PO Last administered on 04/13/17 08:18 ; Start 04/13/17 at 08:30; Stop 04/13/17 at 08:31; Status DC Multivitamins/ Minerals 10 ml/ Folic Acid 1 mg/ Thiamine HCl 100 mg/Sodium Chloride 1,011.2 ml @ 0 mls/hr 1X ONCE IV Last administered on 04/13/17 08: 42; Start 04/13/17 at 09:00; Stop 04/13/17 at 09:01; Status DC Lactobacillus Acidophilus (Bacid, Chata-Bid) 2 tab DAILY PO Last administered on 04/14/17 08:15; Start 04/13/17 at 09:00 Digoxin (Lanoxin) 125 mcg ONCE ONCE IV Last administered on 04/13/17 10:07; Start 04/13/17 at 10:00; Stop 04/13/17 at 10:01; Status DC Sodium Chloride 500 ml @ 0 mls/hr 1X ONCE IV Last administered on 04/13/17 10 :07; Start 04/13/17 at 10:00; Stop 04/13/17 at 10:01; Status DC Trimethoprim/ Sulfamethoxazole (Bactrim Ds) 1 tab DAILY PO Last administered on 04/14/17 08:16; Start 04/13/17 at 10:00; Stop 04/14/17 at 09:12; Status DC Famotidine (Pepcid) 20 mg BID PO Last administered on 04/13/17 21:30; Start at 21:00; Stop 04/14/17 at 07:35; Status DC Enoxaparin Sodium (Lovenox 80mg Syringe) 80 mg Q24H SQ Last administered on 08:17; Start 04/14/17 at 09:00 Warfarin Sodium (Coumadin Per Pharmacy) 1 each PRN DAILY PRN MC SEE COMMENTS Last administered on 04/14/17 07:54; Start 04/14/17 at 07:30 Famotidine (Pepcid) 20 mg DAILY PO Last administered on 04/14/17 08:16; Start 04/14/17 at 09:00 Warfarin Sodium (Coumadin) 1 mg 1X WARF ONCE PO ; Start 04/14/17 at 16:00; Stop 04/14/17 at 16:01 Ciprofloxacin Lactate 100 ml @ 100 mls/hr Q12HR IV ; Start 04/14/17 at 09:30 Active Scripts Active Amlodipine Besylate 10 Mg Tablet 1 Tab PO DAILY Reported Diovan (Valsartan) 320 Mg Tablet 1 Tab PO DAILY Thera-M (Multivits,Th W-Fe,Other Min) 1 Each Tablet 1 Each PO DAILY Metoprolol Tartrate 50 Mg Tablet 1 Tab PO HS Metoprolol Tartrate 100 Mg Tablet 1 Tab PO DAILY Vitamin B-12 (Cyanocobalamin (Vitamin B-12)) 100 Mcg Tablet 100 Mcg PO DAILY Calcium + D3 Er Tablet (Calcium Carb & Cit/Vitamin D3) 1 Each Tablet.er 1 Each PO DAILY Lipitor (Atorvastatin Calcium) 10 Mg Tablet 1 Tab PO DAILY Aspir-Low (Aspirin) 81 Mg Tablet.dr 1 Tab PO DAILY Ascorbic Acid 500 Mg Tablet 500 Mg PO DAILY Coumadin (Warfarin Sodium) 1 Mg Tablet 2 Mg PO DAILYWSUP Vitals/I & O Vital Sign - Last 24 Hours 04/13/17 04/13/17 04/13/17 04/13/17 10:07 10:40 11:40 12:19 Pulse 113 91 112 91 Resp 13 13 13 B/P (MAP) 89/61 112/63 (79) 120/69 (86) 112/63 (79) Pulse Ox 94 95 94 O2 Delivery Nasal Cannula Nasal Cannula Nasal Cannula O2 Flow Rate 2.0 2.0 2.0 04/13/17 04/13/17 04/13/17 04/13/17 12:23 12:27 12:41 13:41 Pulse 112 109 104 Resp 13 13 B/P (MAP) 120/63 109/59 (76) 117/58 (77) Pulse Ox 98 92 O2 Delivery Nasal Cannula Nasal Cannula Nasal Cannula O2 Flow Rate 2.0 2.0 2.0 04/13/17 04/13/17 04/13/17 04/13/17 14:41 15:41 16:18 16:41 Pulse 95 94 94 Resp 23 23 18 B/P (MAP) 111/55 (73) 109/59 (76) 112/62 (79) Pulse Ox 95 95 95 O2 Delivery Nasal Cannula Nasal Cannula Nasal Cannula Nasal Cannula O2 Flow Rate 2.0 2.0 2.0 2.0 04/13/17 04/13/17 04/13/17 04/13/17 17:41 18:30 19:13 20:00 Temp 98.9 Pulse 110 113 108 Resp 24 B/P (MAP) 110/50 (70) 118/56 108/55 (72) Pulse Ox 95 95 O2 Delivery Nasal Cannula Nasal Cannula Nasal Cannula O2 Flow Rate 2.0 2.0 2.0 04/13/17 04/13/17 04/13/17 04/13/17 20:40 22:06 22:53 23:59 Pulse 102 100 89 Resp 20 19 B/P (MAP) 111/55 (73) 118/67 (84) 119/65 (83) Pulse Ox 96 97 94 O2 Delivery Nasal Cannula Nasal Cannula Nasal Cannula Nasal Cannula O2 Flow Rate 2.0 2.0 2.0 2.0 04/14/17 04/14/17 04/14/17 04/14/17 00:13 00:22 01:10 02:42 Pulse 89 108 96 113 Resp 24 16 18 B/P (MAP) 119/65 143/70 (94) 98/50 (66) 104/48 (66) Pulse Ox 97 97 97 O2 Delivery Nasal Cannula Nasal Cannula Nasal Cannula O2 Flow Rate 2.0 2.0 2.0 04/14/17 04/14/17 04/14/17 04/14/17 03:29 04:00 04:18 05:06 Pulse 97 100 115 Resp 22 B/P (MAP) 82/52 (62) 92/55 (67) 111/66 (81) Pulse Ox 100 98 97 O2 Delivery Nasal Cannula Nasal Cannula Nasal Cannula Nasal Cannula O2 Flow Rate 2.0 2.0 2.0 2.0 04/14/17 04/14/17 05:42 06:12 Pulse 115 97 Resp 18 B/P (MAP) 111/66 122/76 (91) Pulse Ox 98 O2 Delivery Nasal Cannula O2 Flow Rate 2.0 Intake and Output 04/13/17 04/13/17 04/14/17 15:00 23:00 07:00 Intake Total 850 ml 1875 ml 1600 ml Output Total 1850 ml 900 ml 2 ml Balance -1000 ml 975 ml 1598 ml CELSO ABEBE VASCULAR NURSE Apr 14, 2017 09:33
[2017-04-14] MEDS ORDERED: LOPERAMIDE 2 MG CAPSULE PO ONE (10:15)
--- NOTE | 2017-04-14 12:26 | PDOC ---
SUBJECTIVE: Feeling better, diarrhea volume and frequency has decreased. C diff x 2 negative. Other studies still pending. Mildly SOB with exertion. No chest pain or symptoms with her tachycardia. Up in a chair and had a bed bath. OBJECTIVE: Problems: Problems Medical Problems: (1) Afib Status: Acute tatus: Acute oblems: (1) Afib with RVR (2) supratherapeutic INR (3) acute diarrhea-suspect food poisoning (4) acute renal failure (5) hypomagnesemia (6) Metabolic acidosis-high anion gap (7) SIRS with acute organ dysfunction (8) hyperglycemia (9) Sepsis with increase in wbc Statu Collar improved. Much more alert. Tongue is moist, throat clear, eyes clear, neck supple without adenopathy Lungs were clear with the exception of an occasional crackle Cardiovascular irregular rhythm and rate consistent with A. fib Abdomen was soft bowel sounds are active nontender no masses palpated Extremities with a trace of edema she does have she does have some petechiae on her lower extremities Vital Signs: Vital Signs Date Time Temp Pulse Resp B/P (MAP) Pulse Ox O2 Delivery O2 Flow Rate FiO2 04/14/17 10:55 91 26 113/76 (88) 93 Room Air 04/14/17 10:05 2.0 04/13/17 19:13 98.9 I & O Intake and Output 04/14/17 07:00 Intake Total 4325 ml Output Total 2752 ml Balance 1573 ml Intake Oral 1425 ml IV Total 2900 ml Output Urine Total 751 ml Stool Total 1001 ml Emesis 1000 ml # Voids 2 # Bowel Movements 2 Labs: Laboratory Tests Test 04/12/17 12:40 04/12/17 14:00 04/12/17 15:36 04/12/17 15:48 Lactic Acid Level 2.7 mmol/L (0.4-2.0) Nasal Screen MRSA (PCR) Negative (Negative) Clostridium difficile Toxin (PCR) Negative (Negative) Negative (Negative) Troponin I Quantitative < 0.017 ng/mL (0-0.055) Test 04/12/17 16:55 04/12/17 17:55 04/12/17 20:04 04/12/17 22:05 Glucose (Fingerstick) 144 mg/dL (70-99) 165 mg/dL (70-99) White Blood Count 12.1 x10^3/uL (4.0-11.0) Red Blood Count 4.64 x10^6/uL (3.50-5.40) Hemoglobin 13.1 g/dL (12.0-15.5) Hematocrit 39.9 % (36.0-47.0) Mean Corpuscular Volume 86 fL (79-100) Mean Corpuscular Hemoglobin 28 pg (25-35) Mean Corpuscular Hemoglobin Concent 33 g/dL (31-37) Red Cell Distribution Width 14.5 % (11.5-14.5) Platelet Count 201 x10^3/uL (140-400) Neutrophils (%) (Auto) 85 % (31-73) Lymphocytes (%) (Auto) 10 % (24-48) Monocytes (%) (Auto) 5 % (0-9) Eosinophils (%) (Auto) 0 % (0-3) Basophils (%) (Auto) 0 % (0-3) Neutrophils # (Auto) 10.3 x10^3uL (1.8-7.7) Lymphocytes # (Auto) 1.2 x10^3/uL (1.0-4.8) Monocytes # (Auto) 0.6 x10^3/uL (0.0-1.1) Eosinophils # (Auto) 0.0 x10^3/uL (0.0-0.7) Basophils # (Auto) 0.0 x10^3/uL (0.0-0.2) Segmented Neutrophils % 44 % (35-66) Band Neutrophils % 42 % (0-9) Lymphocytes % 8 % (24-48) Monocytes % 6 % (0-10) Platelet Estimate Adequate (ADEQUATE) Ovalocytes Few Charu Cells Few Magnesium Level 2.4 mg/dL (1.8-2.4) AA-Pdj-Q-Type Natriuretic Peptide 4233 pg/mL (0-449) Troponin I Quantitative < 0.017 ng/mL (0-0.055) Test 04/13/17 05:45 04/13/17 08:19 04/13/17 10:45 04/13/17 20:55 White Blood Count 11.2 x10^3/uL (4.0-11.0) Red Blood Count 4.50 x10^6/uL (3.50-5.40) Hemoglobin 12.7 g/dL (12.0-15.5) Hematocrit 38.8 % (36.0-47.0) Mean Corpuscular Volume 86 fL (79-100) Mean Corpuscular Hemoglobin 28 pg (25-35) Mean Corpuscular Hemoglobin Concent 33 g/dL (31-37) Red Cell Distribution Width 14.3 % (11.5-14.5) Platelet Count 191 x10^3/uL (140-400) Neutrophils (%) (Auto) 89 % (31-73) Lymphocytes (%) (Auto) 7 % (24-48) Monocytes (%) (Auto) 3 % (0-9) Eosinophils (%) (Auto) 1 % (0-3) Basophils (%) (Auto) 0 % (0-3) Neutrophils # (Auto) 10.0 x10^3uL (1.8-7.7) Lymphocytes # (Auto) 0.8 x10^3/uL (1.0-4.8) Monocytes # (Auto) 0.3 x10^3/uL (0.0-1.1) Eosinophils # (Auto) 0.1 x10^3/uL (0.0-0.7) Basophils # (Auto) 0.0 x10^3/uL (0.0-0.2) Sodium Level 138 mmol/L (136-145) Potassium Level 3.8 mmol/L (3.5-5.1) Chloride Level 107 mmol/L (98-107) Carbon Dioxide Level 17 mmol/L (21-32) Anion Gap 14 (6-14) Blood Urea Nitrogen 41 mg/dL (7-20) Creatinine 1.9 mg/dL (0.6-1.0) Estimated GFR (Cockcroft-Gault) 25.1 BUN/Creatinine Ratio 22 (6-20) Glucose Level 111 mg/dL (70-99) Calcium Level 8.2 mg/dL (8.5-10.1) Magnesium Level 2.1 mg/dL (1.8-2.4) Total Bilirubin 0.5 mg/dL (0.2-1.0) Aspartate Amino Transf (AST/SGOT) 30 U/L (15-37) Alanine Aminotransferase (ALT/SGPT) 22 U/L (14-59) Alkaline Phosphatase 62 U/L (46-116) Total Protein 6.6 g/dL (6.4-8.2) Albumin 2.8 g/dL (3.4-5.0) Albumin/Globulin Ratio 0.7 (1.0-1.7) Triglycerides Level 73 mg/dL (0-150) Cholesterol Level 99 mg/dL (0-200) LDL Cholesterol, Calculated 33 mg/dL (0-100) VLDL Cholesterol, Calculated 14 mg/dL (0-40) Non-HDL Cholesterol Calculated 47 mg/dL (0-129) HDL Cholesterol 52 mg/dL (40-60) Cholesterol/HDL Ratio 1.0 Prothrombin Time 38.4 SEC (9.4-11.4) Prothromb Time International Ratio 3.7 (0.9-1.1) Stool Occult Blood Negative (NEG) Glucose (Fingerstick) 113 mg/dL (70-99) Test 04/14/17 05:35 White Blood Count 14.1 x10^3/uL (4.0-11.0) Red Blood Count 4.09 x10^6/uL (3.50-5.40) Hemoglobin 11.4 g/dL (12.0-15.5) Hematocrit 35.3 % (36.0-47.0) Mean Corpuscular Volume 86 fL (79-100) Mean Corpuscular Hemoglobin 28 pg (25-35) Mean Corpuscular Hemoglobin Concent 32 g/dL (31-37) Red Cell Distribution Width 14.9 % (11.5-14.5) Platelet Count 182 x10^3/uL (140-400) Neutrophils (%) (Auto) 88 % (31-73) Lymphocytes (%) (Auto) 8 % (24-48) Monocytes (%) (Auto) 4 % (0-9) Eosinophils (%) (Auto) 1 % (0-3) Basophils (%) (Auto) 0 % (0-3) Neutrophils # (Auto) 12.4 x10^3uL (1.8-7.7) Lymphocytes # (Auto) 1.1 x10^3/uL (1.0-4.8) Monocytes # (Auto) 0.5 x10^3/uL (0.0-1.1) Eosinophils # (Auto) 0.1 x10^3/uL (0.0-0.7) Basophils # (Auto) 0.0 x10^3/uL (0.0-0.2) Prothrombin Time 17.2 SEC (9.4-11.4) Prothromb Time International Ratio 1.7 (0.9-1.1) Sodium Level 139 mmol/L (136-145) Potassium Level 4.0 mmol/L (3.5-5.1) Chloride Level 112 mmol/L (98-107) Carbon Dioxide Level 14 mmol/L (21-32) Anion Gap 13 (6-14) Blood Urea Nitrogen 24 mg/dL (7-20) Creatinine 1.3 mg/dL (0.6-1.0) Estimated GFR (Cockcroft-Gault) 38.8 BUN/Creatinine Ratio 18 (6-20) Glucose Level 103 mg/dL (70-99) Calcium Level 7.8 mg/dL (8.5-10.1) Magnesium Level 1.9 mg/dL (1.8-2.4) Total Bilirubin 0.4 mg/dL (0.2-1.0) Aspartate Amino Transf (AST/SGOT) 24 U/L (15-37) Alanine Aminotransferase (ALT/SGPT) 22 U/L (14-59) Alkaline Phosphatase 76 U/L (46-116) Total Protein 6.3 g/dL (6.4-8.2) Albumin 2.6 g/dL (3.4-5.0) Albumin/Globulin Ratio 0.7 (1.0-1.7) ASSESSMENT: as above problem list PLAN: Decrease IV fluid rate. Check chest x-ray PA and lateral. Start Lovenox and resume Coumadin. Cardiology if she is unable to tolerate increasing her beta tonja they may try amiodarone. Echo read is pending. Continue PT and OT. Monitor for hypotension Will add in IV Cipro because of increase in wbc and no cultures back yet. lisy shah. NATASHA PALOMINO DO Apr 14, 2017 12:26
--- NOTE | 2017-04-14 15:25 | RAD ---
Chest, 2 views, 04/14/2017: History: Dyspnea Comparison is made to a study from 04/12/2017. The heart size is normal. There are mild streaky left perihilar and left basilar opacities which have worsened slightly. There is blunting of the costophrenic angles bilaterally compatible with a small amount of pleural fluid. No definite right lung infiltrate is seen. There are moderate scattered degenerative changes in the spine. IMPRESSION: 1. Worsening streaky left basilar and perihilar atelectasis and/or pneumonitis. 2. Small bilateral pleural effusions.
[2017-04-14] MEDS ORDERED: WARFARIN 1 MG TABLET. PO ONE (16:00)
[2017-04-14] MEDS ORDERED: FUROSEMIDE 20 MG/2 ML VIAL IVP ONE (16:00)
--- NOTE | 2017-04-14 16:11 | CARD ---
APPROVED REPORT EXAM: Two-dimensional and M-mode echocardiogram with Doppler and color Doppler. Other Information Quality : GoodHR: 116bpm Rhythm : Tachycardia INDICATION Congestive Heart Failure 2D DIMENSIONS Left Atrium(2D)4.9 (1.6-4.0cm)IVSd1.0 (0.7-1.1cm) Aortic Root(2D)3.0 (2.0-3.7cm)LVDd4.4 (3.9-5.9cm) LVOT Diameter2.0 (1.8-2.4cm)PWd1.0 (0.7-1.1cm) LA Midvkx34 (18-58mL)LVDs3.5 (2.5-4.0cm) FS (%) 19.4 %SV34.5 ml M-Mode DIMENSIONS Aortic Cusp Exc1.20 (1.5-2.0cm) Aortic Valve AoV Peak Neeraj.213.1cm/sAoV VTI35.0cm AO Peak GR.18.2mmHgLVOT Peak Neeraj.104.3cm/s LVOT VTI 19.31cmAO Mean GR.12mmHg CIRILO (VMAX)1.48kv1ZNQ (VTI)1.75cm2 AI P 1/2 Tssy284gq Pulmonary Valve PV Peak Omcqjpba660.4cm/sPV Peak Grad.9mmHg Tricuspid Valve TR P. Mpsycyae216tf/sTR Peak Gr.51mmHg LEFT VENTRICLE The left ventricle is normal size. There is normal left ventricular wall thickness. Left ventricle sy stolic function is low normal to mildly impaired. The Ejection Fraction is 45-50%. There is global hy pokinesis of the left ventricle. Unable to evaluate Diastolic Function. No left ventricle thrombus no trini on this study. There is no ventricular septal defect visualized. There is no left ventricular ane urysm. There is no mass noted in the left ventricle. RIGHT VENTRICLE The right ventricle is normal size. There is normal right ventricular wall thickness. The right ventr icular systolic function is normal. ATRIA The left atrium is mildly dilated. The interatrial septum is intact with no evidence for an atrial se ptal defect or patent foramen ovale as noted on 2-D or Doppler imaging. AORTIC VALVE The aortic valve is normal in structure and function. Doppler and Color Flow revealed mild to moderat e aortic regurgitation. There is mild valvular aortic stenosis. There is no aortic valvular vegetatio n. MITRAL VALVE The mitral valve is normal in structure and function. There is no evidence of mitral valve prolapse. There is no mitral valve stenosis. Doppler and Color-flow revealed mild mitral regurgitation. TRICUSPID VALVE The tricuspid valve is normal in structure and function. Doppler and Color Flow revealed moderate tri cuspid regurgitation. The pulmonary artery systolic pressure is estimated at 50-60 mmHg. There is mod erate pulmonary hypertension. The PA pressure was estimated at 56 mmHg. There is no tricuspid valve p rolapse or vegetation. There is no tricuspid valve stenosis. PULMONIC VALVE The pulmonary valve is normal in structure and function. Doppler and Color Flow revealed mild pulmoni c valvular regurgitation. There is no pulmonic valvular stenosis. GREAT VESSELS The aortic root is normal in size. The IVC is normal in size and collapses >50% with inspiration. PERICARDIAL EFFUSION There is no pleural effusion. There is no evidence of significant pericardial effusion. Critical Notification Critical Value: No <Conclusion> The left ventricle is normal size. Left ventricle systolic function is low normal to mildly impaired. The Ejection Fraction is 45-50%. There is mild valvular aortic stenosis. Doppler and Color Flow revealed mild to moderate aortic regurgitation. Doppler and Color-flow revealed mild mitral regurgitation. Doppler and Color Flow revealed moderate tricuspid regurgitation. The pulmonary artery systolic pressure is estimated at 50-60 mmHg. There is moderate pulmonary hypertension.
[2017-04-15] VITALS (19 sets, daily range): BP systolic 97–139; BP diastolic 54–86
[2017-04-15 05:42] LABS: BASO % 0 % (0-3); EOS # 0.2 x10^3/uL (0.0-0.7); EOS % 1 % (0-3); HEMATOCRIT 37.9 % (36.0-47.0); HEMOGLOBIN 12.2 g/dL (12.0-15.5); LYMPH # 1.3 x10^3/uL (1.0-4.8); LYMPH % 9 % (24-48); MEAN CORPUSCULAR HEMOGLOBIN 28 pg (25-35); MEAN CORPUSCULAR HGB CONC 32 g/dL (31-37); MEAN CORPUSCULAR VOLUME 86 fL (79-100); MONO # 0.9 x10^3/uL (0.0-1.1); MONO % 7 % (0-9); NEUT # 11.8 x10^3uL (1.8-7.7); NEUT % 83 % (31-73); PLATELET COUNT 204 x10^3/uL (140-400); RED CELL DISTRIBUTION WIDTH 14.9 % (11.5-14.5); WHITE BLOOD COUNT 14.3 x10^3/uL (4.0-11.0)
[2017-04-15] MEDS: METOPROLOL TART IMMED RELEASE 25 MG TABLET PO SCH ×3 (05:59→21:12)
[2017-04-15 06:06] LABS: ALBUMIN 2.8 g/dL (3.4-5.0); ALBUMIN/GLOBULIN RATIO 0.7 (1.0-1.7); CREATININE 1.2 mg/dL (0.6-1.0); GFR 42.6; MAGNESIUM 1.6 mg/dL (1.8-2.4); POTASSIUM 3.7 mmol/L (3.5-5.1); TOTAL BILIRUBIN 0.5 mg/dL (0.2-1.0); TOTAL PROTEIN 6.8 g/dL (6.4-8.2)
[2017-04-15] MEDS ORDERED: MAGNESIUM SULFATE 2GM 50 ML IV ONE (07:45)
[2017-04-15] MEDS ORDERED: FUROSEMIDE 20 MG/2 ML VIAL IVP ONE ×2 (08:10→11:00)
[2017-04-15] MEDS: FAMOTIDINE 20 MG TABLET PO SCH (08:51)
[2017-04-15] MEDS: ENOXAPARIN ** NOTE DOSE ** SYRINGE SQ SCH ×2 (08:51→21:11)
[2017-04-15] MEDS: LACTOBACILLUS ACIDOPH & BULGAR 1 TABLET. PO SCH (08:51)
--- NOTE | 2017-04-15 09:15 | RAD ---
Chest, 2 views, 04/15/2017: History: Dyspnea Comparison is made to yesterday study. The heart size is within normal limits. There is moderate left parahilar and basilar infiltrate which has worsened slightly. Mild right basilar atelectasis/infiltrate has developed. There is a small amount of bilateral pleural fluid, perhaps slightly worse. There is no evidence of pneumothorax. IMPRESSION: 1. Worsening left parahilar and basilar infiltrates with mild developing right basilar infiltrate. The findings suggest pneumonia and/or pulmonary edema. 2. Slight progression of the small bilateral pleural effusions.
[2017-04-15] MEDS ORDERED: PIP/TAZO PER PHARMACY MC PRN (10:30)
[2017-04-15] MEDS ORDERED: VANCOMYCIN 2 GM in IV NORMAL SALINE 500ML 500 ML IV ONE ×2 (11:00→12:30)
--- NOTE | 2017-04-15 12:12 | PDOC ---
PROGRESS NOTES Diagnosis Problem Problems Medical Problems: (1) Afib Status: Acute Assessment Problems Medical Problems: (1) Afib Status: Acute ) Afib with RVR (2) supratherapeutic INR-no subtherapeutic-on lovonox for bridge (3) acute diarrhea-suspect food poisoning-resolved (4) acute renal failureresolved (5) hypomagnesemia (6) Metabolic acidosis-high anion gap-improving (7) SIRS with acute organ dysfunction (8) hyperglycemia (9) Sepsis with increase in wbc #10 aortic regurgitation #11 moderate pulmonary hypertension #12 tricuspid regurgitation #13Hospital acquired pneumonia versus pulmonary edema Continued leukocytosis in spite of antibiotic changes PLAN Due to weight gain will need some extra Lasix as her blood pressure will allow. We'll need to continue with the Lovenox as a bridge until her INR comes back to therapeutic. She will need to follow up with a tank shop supervisor for her pulmonary hypertension as this is a new diagnosis for her. Also the aortic regurgitation and tricuspid regurg. We'll continue with the antibiotics for now. They have been changed. The metronidazole has been discontinued. We will see how the white blood cell count is on the new antibiotics. Continue with PT and OT and work toward discharge in the next day or 2. Subjective Overall feels better. But she has gained around 15-18 pounds which attributed to the IV fluids that she received. Her normal weight is 165. So she had lost 2 pounds but is now 178 pounds. Not sure if those weights and accurate. She is complaining a little bit shortness of breath specimen with exertion. But overall feels better her diarrhea has resolved. Stool cultures and stool for fecal for WBCs still pending after 3 days. Echo results show that she does have moderate pulmonary hypertension, aortic regurgitation as well as tricuspid regurgitation and some hypokinesis of the left ventricle. Discussed with cardiology-need to work on rate control and see her geodetic advisor and a tank shop supervisor on discharge. Objective Color is good, is comfortable at rest. Tongue is now moist. Neck was supple. There is slight JVD. Lungs with few crackles in the bases particularly on the left cardiovascular regular rhythm and rate with A. fib and 2/6 systolic murmur. The abdomen was soft nontender does appear little distended extremities with a trace of edema. Vital Signs Date Time Temp Pulse Resp B/P (MAP) Pulse Ox O2 Delivery O2 Flow Rate FiO2 04/15/17 11:25 98.3 114 20 97/63 (74) 97 Room Air 04/15/17 09:52 2.0 Intake and Output 04/15/17 07:00 Intake Total 3200 ml Output Total 3075 ml Balance 125 ml Intake Oral 1250 ml IV Total 1950 ml Output Urine Total 2875 ml Stool Total 200 ml Review of Relevant I have reviewed the following items francheska (where applicable) has been applied. Labs Laboratory Tests Test 04/13/17 20:55 04/14/17 05:35 04/15/17 05:33 Glucose (Fingerstick) 113 mg/dL (70-99) White Blood Count 14.1 x10^3/uL (4.0-11.0) 14.3 x10^3/uL (4.0-11.0) Red Blood Count 4.09 x10^6/uL (3.50-5.40) 4.40 x10^6/uL (3.50-5.40) Hemoglobin 11.4 g/dL (12.0-15.5) 12.2 g/dL (12.0-15.5) Hematocrit 35.3 % (36.0-47.0) 37.9 % (36.0-47.0) Mean Corpuscular Volume 86 fL (79-100) 86 fL (79-100) Mean Corpuscular Hemoglobin 28 pg (25-35) 28 pg (25-35) Mean Corpuscular Hemoglobin Concent 32 g/dL (31-37) 32 g/dL (31-37) Red Cell Distribution Width 14.9 % (11.5-14.5) 14.9 % (11.5-14.5) Platelet Count 182 x10^3/uL (140-400) 204 x10^3/uL (140-400) Neutrophils (%) (Auto) 88 % (31-73) 83 % (31-73) Lymphocytes (%) (Auto) 8 % (24-48) 9 % (24-48) Monocytes (%) (Auto) 4 % (0-9) 7 % (0-9) Eosinophils (%) (Auto) 1 % (0-3) 1 % (0-3) Basophils (%) (Auto) 0 % (0-3) 0 % (0-3) Neutrophils # (Auto) 12.4 x10^3uL (1.8-7.7) 11.8 x10^3uL (1.8-7.7) Lymphocytes # (Auto) 1.1 x10^3/uL (1.0-4.8) 1.3 x10^3/uL (1.0-4.8) Monocytes # (Auto) 0.5 x10^3/uL (0.0-1.1) 0.9 x10^3/uL (0.0-1.1) Eosinophils # (Auto) 0.1 x10^3/uL (0.0-0.7) 0.2 x10^3/uL (0.0-0.7) Basophils # (Auto) 0.0 x10^3/uL (0.0-0.2) 0.0 x10^3/uL (0.0-0.2) Prothrombin Time 17.2 SEC (9.4-11.4) 18.6 SEC (9.4-11.4) Prothromb Time International Ratio 1.7 (0.9-1.1) 1.8 (0.9-1.1) Sodium Level 139 mmol/L (136-145) 139 mmol/L (136-145) Potassium Level 4.0 mmol/L (3.5-5.1) 3.7 mmol/L (3.5-5.1) Chloride Level 112 mmol/L (98-107) 108 mmol/L (98-107) Carbon Dioxide Level 14 mmol/L (21-32) 18 mmol/L (21-32) Anion Gap 13 (6-14) 13 (6-14) Blood Urea Nitrogen 24 mg/dL (7-20) 18 mg/dL (7-20) Creatinine 1.3 mg/dL (0.6-1.0) 1.2 mg/dL (0.6-1.0) Estimated GFR (Cockcroft-Gault) 38.8 42.6 BUN/Creatinine Ratio 18 (6-20) 15 (6-20) Glucose Level 103 mg/dL (70-99) 114 mg/dL (70-99) Calcium Level 7.8 mg/dL (8.5-10.1) 8.0 mg/dL (8.5-10.1) Magnesium Level 1.9 mg/dL (1.8-2.4) 1.6 mg/dL (1.8-2.4) Total Bilirubin 0.4 mg/dL (0.2-1.0) 0.5 mg/dL (0.2-1.0) Aspartate Amino Transf (AST/SGOT) 24 U/L (15-37) 20 U/L (15-37) Alanine Aminotransferase (ALT/SGPT) 22 U/L (14-59) 21 U/L (14-59) Alkaline Phosphatase 76 U/L (46-116) 97 U/L (46-116) Total Protein 6.3 g/dL (6.4-8.2) 6.8 g/dL (6.4-8.2) Albumin 2.6 g/dL (3.4-5.0) 2.8 g/dL (3.4-5.0) Albumin/Globulin Ratio 0.7 (1.0-1.7) 0.7 (1.0-1.7) Microbiology 04/12/17 Blood Culture - Preliminary, Resulted NO GROWTH AFTER 2 DAYS Medications Current Medications Sodium Chloride 1,000 ml @ 1,000 mls/hr 1X ONCE IV Last administered on 08:35; Start 04/12/17 at 08:30; Stop 04/12/17 at 09:29; Status DC Diltiazem HCl (Cardizem) 10 mg 1X ONCE IVP Last administered on 04/12/17 10: 02; Start 04/12/17 at 10:00; Stop 04/12/17 at 10:01; Status DC Diltiazem HCl 125 mg/Dextrose 125 ml @ 0 mls/hr 1X ONCE IV Last administered on 04/12/17 10:26; Start 04/12/17 at 10:00; Stop 04/12/17 at 10:01; Status DC Lidocaine/Sodium Bicarbonate (Buffered Lidocaine 1%) 3 ml 1X ONCE IJ ; Start at 10:00; Stop 04/12/17 at 10:00; Status DC Ondansetron HCl (Zofran) 4 mg PRN Q4HRS PRN IV NAUSEA/VOMITING; Start 04/12/17 at 11:00; Stop 04/13/17 at 10:14; Status DC Sodium Chloride 1,000 ml @ 125 mls/hr 1X ONCE IV Last administered on 11:00; Start 04/12/17 at 11:00; Stop 04/12/17 at 18:59; Status DC Ondansetron HCl (Zofran) 4 mg PRN Q8HRS PRN IV NAUSEA/VOMITING; Start 04/12/17 at 12:30 Magnesium Sulfate 50 ml @ 25 mls/hr 1X ONCE IV Last administered on 04/12/17 13:49; Start 04/12/17 at 13:10; Stop 04/12/17 at 15:09; Status DC Famotidine (Pepcid) 20 mg BID IVP Last administered on 04/13/17 08:18; Start 04/12/17 at 21:00; Stop 04/13/17 at 10:19; Status DC Multivitamins/ Minerals 10 ml/ Folic Acid 1 mg/ Thiamine HCl 100 mg/Potassium Chloride 20 meq/ Dextrose/Lactated Ringer's 1,021.2 ml @ 150 mls/ hr 1X ONCE IV Last administered on 04/12/17 15:59; Start 04/12/17 at 16:00; Stop at 22:48; Status DC Insulin Aspart (NovoLOG) 0-5 UNITS QIDACHS SQ ; Start 04/12/17 at 16:30; Stop at 08:19; Status DC Dextrose 12.5 gm PRN Q15MIN PRN IV SEE COMMENTS; Start 04/12/17 at 15:30; Stop 04/14/17 at 08:19; Status DC Metronidazole 100 ml @ 100 mls/hr Q8HRS IV Last administered on 04/15/17 05: 58; Start 04/12/17 at 16:00; Stop 04/15/17 at 10:28; Status DC Sodium Chloride 1,000 ml @ 250 mls/hr 1X ONCE IV Last administered on 16:00; Start 04/12/17 at 16:00; Stop 04/12/17 at 19:59; Status DC Sodium Chloride 500 ml @ As Directed STK-MED ONCE .ROUTE Last administered on 04/12/17 15:59; Start 04/12/17 at 15:51; Stop 04/12/17 at 15:52; Status DC Diltiazem HCl 100 mg/Dextrose 100 ml @ 5 mls/hr CONT PRN IV SEE I/O RECORD; Start 04/12/17 at 18:00 Digoxin (Lanoxin) 500 mcg 1X ONCE IV Last administered on 04/12/17 19:12; Start 04/12/17 at 18:45; Stop 04/12/17 at 18:46; Status DC Metoprolol Tartrate (Lopressor) 12.5 mg Q6HRS PO Last administered on 05:42; Start 04/12/17 at 19:00; Stop 04/14/17 at 10:53; Status DC Potassium Chloride/Sodium Chloride 1,000 ml @ 75 mls/hr [id number] IV Last administered on 04/14/17 21:29; Start 04/13/17 at 01:00; Stop 04/15/17 at 08:35 ; Status DC Loperamide HCl (Imodium) 2 mg 1X ONCE PO Last administered on 04/13/17 08:18 ; Start 04/13/17 at 08:30; Stop 04/13/17 at 08:31; Status DC Multivitamins/ Minerals 10 ml/ Folic Acid 1 mg/ Thiamine HCl 100 mg/Sodium Chloride 1,011.2 ml @ 0 mls/hr 1X ONCE IV Last administered on 04/13/17 08: 42; Start 04/13/17 at 09:00; Stop 04/13/17 at 09:01; Status DC Lactobacillus Acidophilus (Bacid, Chata-Bid) 2 tab DAILY PO Last administered on 04/15/17 08:51; Start 04/13/17 at 09:00 Digoxin (Lanoxin) 125 mcg ONCE ONCE IV Last administered on 04/13/17 10:07; Start 04/13/17 at 10:00; Stop 04/13/17 at 10:01; Status DC Sodium Chloride 500 ml @ 0 mls/hr 1X ONCE IV Last administered on 04/13/17 10 :07; Start 04/13/17 at 10:00; Stop 04/13/17 at 10:01; Status DC Trimethoprim/ Sulfamethoxazole (Bactrim Ds) 1 tab DAILY PO Last administered on 04/14/17 08:16; Start 04/13/17 at 10:00; Stop 04/14/17 at 09:12; Status DC Famotidine (Pepcid) 20 mg BID PO Last administered on 04/13/17 21:30; Start at 21:00; Stop 04/14/17 at 07:35; Status DC Enoxaparin Sodium (Lovenox 80mg Syringe) 80 mg Q24H SQ Last administered on 08:17; Start 04/14/17 at 09:00; Stop 04/15/17 at 08:13; Status DC Warfarin Sodium (Coumadin Per Pharmacy) 1 each PRN DAILY PRN MC SEE COMMENTS Last administered on 04/15/17 08:18; Start 04/14/17 at 07:30 Famotidine (Pepcid) 20 mg DAILY PO Last administered on 04/15/17 08:51; Start 04/14/17 at 09:00 Warfarin Sodium (Coumadin) 1 mg 1X WARF ONCE PO Last administered on 16:31; Start 04/14/17 at 16:00; Stop 04/14/17 at 16:01; Status DC Ciprofloxacin Lactate 100 ml @ 100 mls/hr Q12HR IV Last administered on 10:15; Start 04/14/17 at 09:30; Stop 04/14/17 at 15:54; Status DC Loperamide HCl (Imodium) 2 mg 1X ONCE PO Last administered on 04/14/17 10:15 ; Start 04/14/17 at 10:15; Stop 04/14/17 at 10:16; Status DC Metoprolol Tartrate (Lopressor) 25 mg Q8HRS PO Last administered on 04/15/17 05:59; Start 04/14/17 at 14:00 Ceftriaxone Sodium 1 gm/ Sodium Chloride 50 ml @ 100 mls/hr Q24H IV Last administered on 04/14/17 16:32; Start 04/14/17 at 16:15; Stop 04/15/17 at 10:32 ; Status DC Furosemide (Lasix) 10 mg 1X ONCE IVP Last administered on 04/14/17 16:31; Start 04/14/17 at 16:00; Stop 04/14/17 at 16:01; Status DC Magnesium Sulfate 50 ml @ 25 mls/hr 1X ONCE IV Last administered on 04/15/17 07:59; Start 04/15/17 at 07:45; Stop 04/15/17 at 09:44; Status DC Warfarin Sodium (Coumadin) 1 mg 1X WARF ONCE PO ; Start 04/15/17 at 16:00; Stop 04/15/17 at 16:01 Furosemide (Lasix) 20 mg 1X ONCE IVP Last administered on 04/15/17 09:09; Start 04/15/17 at 08:10; Stop 04/15/17 at 08:11; Status DC Enoxaparin Sodium (Lovenox 80mg Syringe) 80 mg Q12H SQ Last administered on 08:51; Start 04/15/17 at 08:15 Piperacillin Sod/ Tazobactam Sod (Zosyn Per Pharmacy) 1 each PRN DAILY PRN MC SEE COMMENTS; Start 04/15/17 at 10:30 Vancomycin HCl (Vanco Per Pharmacy) 1 each PRN DAILY PRN MC SEE COMMENTS; Start 04/15/17 at 10:30 Piperacillin Sod/ Tazobactam Sod 3.375 gm/Sodium Chloride 50 ml @ 100 mls/hr Q6HRS IV ; Start 04/15/17 at 12:00 Vancomycin HCl 2 gm/Sodium Chloride 500 ml @ 250 mls/hr 1X ONCE IV ; Start at 11:00; Stop 04/15/17 at 11:26; Status DC Furosemide (Lasix) 20 mg 1X ONCE IVP ; Start 04/15/17 at 11:00; Stop 04/15/17 at 11:01; Status DC Vancomycin HCl 2 gm/Sodium Chloride 500 ml @ 250 mls/hr 1X ONCE IV ; Start at 12:30; Stop 04/15/17 at 14:29 Active Scripts Active Amlodipine Besylate 10 Mg Tablet 1 Tab PO DAILY Reported Diovan (Valsartan) 320 Mg Tablet 1 Tab PO DAILY Thera-M (Multivits, W-Fe,Other Min) 1 Each Tablet 1 Each PO DAILY Metoprolol Tartrate 50 Mg Tablet 1 Tab PO HS Metoprolol Tartrate 100 Mg Tablet 1 Tab PO DAILY Vitamin B-12 (Cyanocobalamin (Vitamin B-12)) 100 Mcg Tablet 100 Mcg PO DAILY Calcium + D3 Er Tablet (Calcium Carb & Cit/Vitamin D3) 1 Each Tablet.er 1 Each PO DAILY Lipitor (Atorvastatin Calcium) 10 Mg Tablet 1 Tab PO DAILY Aspir-Low (Aspirin) 81 Mg Tablet.dr 1 Tab PO DAILY Ascorbic Acid 500 Mg Tablet 500 Mg PO DAILY Coumadin (Warfarin Sodium) 1 Mg Tablet 2 Mg PO DAILYWSUP Vitals/I & O Vital Sign - Last 24 Hours 04/14/17 04/14/17 04/14/17 04/14/17 12:39 13:03 13:52 15:10 Temp 97.9 Pulse 102 100 100 Resp 27 B/P (MAP) 134/70 (91) 132/59 (83) 125/64 Pulse Ox 96 96 O2 Delivery Room Air Room Air Nasal Cannula O2 Flow Rate 2.0 2.0 04/14/17 04/14/17 04/14/17 04/14/17 15:52 16:17 16:20 17:24 Pulse 90 100 96 Resp 20 22 B/P (MAP) 120/77 (91) 132/59 (83) 134/70 (91) Pulse Ox 96 96 96 O2 Delivery Nasal Cannula Nasal Cannula Nasal Cannula Nasal Cannula O2 Flow Rate 2.0 2.0 2.0 2.0 04/14/17 04/14/17 04/14/17 04/14/17 18:28 19:00 20:00 20:00 Temp 98.4 Pulse 95 110 105 Resp 22 22 20 B/P (MAP) 143/79 (100) 136/86 (103) 123/61 (81) Pulse Ox 96 96 95 O2 Delivery Nasal Cannula Nasal Cannula Nasal Cannula Nasal Cannula O2 Flow Rate 2.0 2.0 2.0 2.0 04/14/17 04/14/17 04/14/17 04/14/17 21:00 21:29 21:59 23:00 Pulse 109 109 106 92 Resp 22 24 18 B/P (MAP) 115/65 (82) 115/65 126/62 (83) 97/55 (69) O2 Delivery Nasal Cannula Nasal Cannula Nasal Cannula O2 Flow Rate 2.0 2.0 2.0 04/15/17 04/15/17 04/15/17 04/15/17 00:01 00:01 01:00 02:00 Pulse 90 96 84 Resp 20 18 22 B/P (MAP) 132/68 (89) 118/58 (78) 133/66 (88) O2 Delivery Nasal Cannula Nasal Cannula Nasal Cannula Nasal Cannula O2 Flow Rate 2.0 2.0 2.0 2.0 04/15/17 04/15/17 04/15/17 04/15/17 03:00 04:00 04:00 05:00 Temp 98.0 Pulse 97 111 98 Resp 18 22 24 B/P (MAP) 119/73 (88) 116/63 (80) 134/84 (101) Pulse Ox 95 96 O2 Delivery Nasal Cannula Nasal Cannula Nasal Cannula Nasal Cannula O2 Flow Rate 2.0 2.0 2.0 2.0 04/15/17 04/15/17 04/15/17 04/15/17 05:59 06:00 07:42 07:44 Pulse 111 120 93 Resp 24 20 B/P (MAP) 116/63 126/86 (99) 119/62 (81) O2 Delivery Nasal Cannula Nasal Cannula Nasal Cannula O2 Flow Rate 2.0 2.0 2.0 04/15/17 04/15/17 04/15/17 04/15/17 07:52 08:52 09:52 11:25 Temp 98.3 Pulse 112 120 86 114 Resp 22 22 22 20 B/P (MAP) 139/83 (101) 121/72 (88) 104/56 (72) 97/63 (74) Pulse Ox 97 O2 Delivery Nasal Cannula Nasal Cannula Nasal Cannula Room Air O2 Flow Rate 2.0 2.0 2.0 Intake and Output 04/14/17 04/14/17 04/15/17 15:00 23:00 07:00 Intake Total 850 ml 2050 ml 300 ml Output Total 800 ml 1375 ml 900 ml Balance 50 ml 675 ml -600 ml Nutrition Consultation Malnutrition Findings: Muscle Mass (Severe): Severe Depletion NATASHA PALOMINO DO Apr 15, 2017 12:11
[2017-04-15] MEDS: PIPERACILLIN/TAZOBACTAM 3.375 GM in IV NORMAL SALINE 50ML 50 ML IV SCH ×3 (12:40→23:36)
--- NOTE | 2017-04-15 12:40 | PDOC ---
PROGRESS NOTES Diagnosis Problem Problems Medical Problems: (1) Afib Status: Acute Assessment Problems Medical Problems: (1) Afib Status: Acute 1. Atrial fibrillation with RVR - Rate control improved on increased metoprolol. on Lovenox and coumadin resumed. Could try antiarrhythmics but less likely to be successful fci with left atrial enlargement at 4.9cm 2. dyspnea - CXR with developing PNA and bilat effusions. Agree with iv lasix x 1. Monitor pressures. Stop IVF. 3. 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 - OP PFTs and sleep study. 4. Acute renal failure secondary to diarrhea and dehydration - resolved 5. sepsis/lactic acidosis/diarrhea - per PCP 6. hypertension - mild hypotension after lasix. Continue same and monitor. 7. hyperlipidemia - controlled Problems: Subjective c/o mild dyspnea, little more than yesterday. no chest pain. no palpitations. no lightheadedness. Objective Vital Signs Date Time Temp Pulse Resp B/P (MAP) Pulse Ox O2 Delivery O2 Flow Rate FiO2 04/15/17 12:20 117 24 98/69 (79) Room Air 04/15/17 11:25 98.3 97 04/15/17 09:52 2.0 Intake and Output 04/15/17 07:00 Intake Total 3200 ml Output Total 3075 ml Balance 125 ml Intake Oral 1250 ml IV Total 1950 ml Output Urine Total 2875 ml Stool Total 200 ml Abdomen: Normal bowel sounds, Soft, No tenderness Heart: Normal S1, Normal S2, Other (IRR, no gallops) Extremities: No clubbing, No cyanosis, Normal pulses, Other (trace edema) General: Alert, Oriented X3, Cooperative, No acute distress HEENT: Mucous membr. moist/pink Lungs: Other (few bilateral crackles in bases) Neuro: Reflexes 2+ Psych/Mental Status: Mental status NL, Mood NL Skin: No significant lesion Review of Relevant I have reviewed the following items francheska (where applicable) has been applied. Labs Laboratory Tests Test 04/13/17 20:55 04/14/17 05:35 04/15/17 05:33 Glucose (Fingerstick) 113 mg/dL (70-99) White Blood Count 14.1 x10^3/uL (4.0-11.0) 14.3 x10^3/uL (4.0-11.0) Red Blood Count 4.09 x10^6/uL (3.50-5.40) 4.40 x10^6/uL (3.50-5.40) Hemoglobin 11.4 g/dL (12.0-15.5) 12.2 g/dL (12.0-15.5) Hematocrit 35.3 % (36.0-47.0) 37.9 % (36.0-47.0) Mean Corpuscular Volume 86 fL (79-100) 86 fL (79-100) Mean Corpuscular Hemoglobin 28 pg (25-35) 28 pg (25-35) Mean Corpuscular Hemoglobin Concent 32 g/dL (31-37) 32 g/dL (31-37) Red Cell Distribution Width 14.9 % (11.5-14.5) 14.9 % (11.5-14.5) Platelet Count 182 x10^3/uL (140-400) 204 x10^3/uL (140-400) Neutrophils (%) (Auto) 88 % (31-73) 83 % (31-73) Lymphocytes (%) (Auto) 8 % (24-48) 9 % (24-48) Monocytes (%) (Auto) 4 % (0-9) 7 % (0-9) Eosinophils (%) (Auto) 1 % (0-3) 1 % (0-3) Basophils (%) (Auto) 0 % (0-3) 0 % (0-3) Neutrophils # (Auto) 12.4 x10^3uL (1.8-7.7) 11.8 x10^3uL (1.8-7.7) Lymphocytes # (Auto) 1.1 x10^3/uL (1.0-4.8) 1.3 x10^3/uL (1.0-4.8) Monocytes # (Auto) 0.5 x10^3/uL (0.0-1.1) 0.9 x10^3/uL (0.0-1.1) Eosinophils # (Auto) 0.1 x10^3/uL (0.0-0.7) 0.2 x10^3/uL (0.0-0.7) Basophils # (Auto) 0.0 x10^3/uL (0.0-0.2) 0.0 x10^3/uL (0.0-0.2) Prothrombin Time 17.2 SEC (9.4-11.4) 18.6 SEC (9.4-11.4) Prothromb Time International Ratio 1.7 (0.9-1.1) 1.8 (0.9-1.1) Sodium Level 139 mmol/L (136-145) 139 mmol/L (136-145) Potassium Level 4.0 mmol/L (3.5-5.1) 3.7 mmol/L (3.5-5.1) Chloride Level 112 mmol/L (98-107) 108 mmol/L (98-107) Carbon Dioxide Level 14 mmol/L (21-32) 18 mmol/L (21-32) Anion Gap 13 (6-14) 13 (6-14) Blood Urea Nitrogen 24 mg/dL (7-20) 18 mg/dL (7-20) Creatinine 1.3 mg/dL (0.6-1.0) 1.2 mg/dL (0.6-1.0) Estimated GFR (Cockcroft-Gault) 38.8 42.6 BUN/Creatinine Ratio 18 (6-20) 15 (6-20) Glucose Level 103 mg/dL (70-99) 114 mg/dL (70-99) Calcium Level 7.8 mg/dL (8.5-10.1) 8.0 mg/dL (8.5-10.1) Magnesium Level 1.9 mg/dL (1.8-2.4) 1.6 mg/dL (1.8-2.4) Total Bilirubin 0.4 mg/dL (0.2-1.0) 0.5 mg/dL (0.2-1.0) Aspartate Amino Transf (AST/SGOT) 24 U/L (15-37) 20 U/L (15-37) Alanine Aminotransferase (ALT/SGPT) 22 U/L (14-59) 21 U/L (14-59) Alkaline Phosphatase 76 U/L (46-116) 97 U/L (46-116) Total Protein 6.3 g/dL (6.4-8.2) 6.8 g/dL (6.4-8.2) Albumin 2.6 g/dL (3.4-5.0) 2.8 g/dL (3.4-5.0) Albumin/Globulin Ratio 0.7 (1.0-1.7) 0.7 (1.0-1.7) Microbiology 04/12/17 Blood Culture - Preliminary, Resulted NO GROWTH AFTER 2 DAYS Medications Current Medications Sodium Chloride 1,000 ml @ 1,000 mls/hr 1X ONCE IV Last administered on 08:35; Start 04/12/17 at 08:30; Stop 04/12/17 at 09:29; Status DC Diltiazem HCl (Cardizem) 10 mg 1X ONCE IVP Last administered on 04/12/17 10: 02; Start 04/12/17 at 10:00; Stop 04/12/17 at 10:01; Status DC Diltiazem HCl 125 mg/Dextrose 125 ml @ 0 mls/hr 1X ONCE IV Last administered on 04/12/17 10:26; Start 04/12/17 at 10:00; Stop 04/12/17 at 10:01; Status DC Lidocaine/Sodium Bicarbonate (Buffered Lidocaine 1%) 3 ml 1X ONCE IJ ; Start at 10:00; Stop 04/12/17 at 10:00; Status DC Ondansetron HCl (Zofran) 4 mg PRN Q4HRS PRN IV NAUSEA/VOMITING; Start 04/12/17 at 11:00; Stop 04/13/17 at 10:14; Status DC Sodium Chloride 1,000 ml @ 125 mls/hr 1X ONCE IV Last administered on 11:00; Start 04/12/17 at 11:00; Stop 04/12/17 at 18:59; Status DC Ondansetron HCl (Zofran) 4 mg PRN Q8HRS PRN IV NAUSEA/VOMITING; Start 04/12/17 at 12:30 Magnesium Sulfate 50 ml @ 25 mls/hr 1X ONCE IV Last administered on 04/12/17 13:49; Start 04/12/17 at 13:10; Stop 04/12/17 at 15:09; Status DC Famotidine (Pepcid) 20 mg BID IVP Last administered on 04/13/17 08:18; Start 04/12/17 at 21:00; Stop 04/13/17 at 10:19; Status DC Multivitamins/ Minerals 10 ml/ Folic Acid 1 mg/ Thiamine HCl 100 mg/Potassium Chloride 20 meq/ Dextrose/Lactated Ringer's 1,021.2 ml @ 150 mls/ hr 1X ONCE IV Last administered on 04/12/17 15:59; Start 04/12/17 at 16:00; Stop at 22:48; Status DC Insulin Aspart (NovoLOG) 0-5 UNITS QIDACHS SQ ; Start 04/12/17 at 16:30; Stop at 08:19; Status DC Dextrose 12.5 gm PRN Q15MIN PRN IV SEE COMMENTS; Start 04/12/17 at 15:30; Stop 04/14/17 at 08:19; Status DC Metronidazole 100 ml @ 100 mls/hr Q8HRS IV Last administered on 04/15/17 05: 58; Start 04/12/17 at 16:00; Stop 04/15/17 at 10:28; Status DC Sodium Chloride 1,000 ml @ 250 mls/hr 1X ONCE IV Last administered on 16:00; Start 04/12/17 at 16:00; Stop 04/12/17 at 19:59; Status DC Sodium Chloride 500 ml @ As Directed STK-MED ONCE .ROUTE Last administered on 04/12/17 15:59; Start 04/12/17 at 15:51; Stop 04/12/17 at 15:52; Status DC Diltiazem HCl 100 mg/Dextrose 100 ml @ 5 mls/hr CONT PRN IV SEE I/O RECORD; Start 04/12/17 at 18:00 Digoxin (Lanoxin) 500 mcg 1X ONCE IV Last administered on 04/12/17 19:12; Start 04/12/17 at 18:45; Stop 04/12/17 at 18:46; Status DC Metoprolol Tartrate (Lopressor) 12.5 mg Q6HRS PO Last administered on 05:42; Start 04/12/17 at 19:00; Stop 04/14/17 at 10:53; Status DC Potassium Chloride/Sodium Chloride 1,000 ml @ 75 mls/hr [id number] IV Last administered on 04/14/17 21:29; Start 04/13/17 at 01:00; Stop 04/15/17 at 08:35 ; Status DC Loperamide HCl (Imodium) 2 mg 1X ONCE PO Last administered on 04/13/17 08:18 ; Start 04/13/17 at 08:30; Stop 04/13/17 at 08:31; Status DC Multivitamins/ Minerals 10 ml/ Folic Acid 1 mg/ Thiamine HCl 100 mg/Sodium Chloride 1,011.2 ml @ 0 mls/hr 1X ONCE IV Last administered on 04/13/17 08: 42; Start 04/13/17 at 09:00; Stop 04/13/17 at 09:01; Status DC Lactobacillus Acidophilus (Bacid, Chata-Bid) 2 tab DAILY PO Last administered on 04/15/17 08:51; Start 04/13/17 at 09:00 Digoxin (Lanoxin) 125 mcg ONCE ONCE IV Last administered on 04/13/17 10:07; Start 04/13/17 at 10:00; Stop 04/13/17 at 10:01; Status DC Sodium Chloride 500 ml @ 0 mls/hr 1X ONCE IV Last administered on 04/13/17 10 :07; Start 04/13/17 at 10:00; Stop 04/13/17 at 10:01; Status DC Trimethoprim/ Sulfamethoxazole (Bactrim Ds) 1 tab DAILY PO Last administered on 04/14/17 08:16; Start 04/13/17 at 10:00; Stop 04/14/17 at 09:12; Status DC Famotidine (Pepcid) 20 mg BID PO Last administered on 04/13/17 21:30; Start at 21:00; Stop 04/14/17 at 07:35; Status DC Enoxaparin Sodium (Lovenox 80mg Syringe) 80 mg Q24H SQ Last administered on 08:17; Start 04/14/17 at 09:00; Stop 04/15/17 at 08:13; Status DC Warfarin Sodium (Coumadin Per Pharmacy) 1 each PRN DAILY PRN MC SEE COMMENTS Last administered on 04/15/17 08:18; Start 04/14/17 at 07:30 Famotidine (Pepcid) 20 mg DAILY PO Last administered on 04/15/17 08:51; Start 04/14/17 at 09:00 Warfarin Sodium (Coumadin) 1 mg 1X WARF ONCE PO Last administered on 16:31; Start 04/14/17 at 16:00; Stop 04/14/17 at 16:01; Status DC Ciprofloxacin Lactate 100 ml @ 100 mls/hr Q12HR IV Last administered on 10:15; Start 04/14/17 at 09:30; Stop 04/14/17 at 15:54; Status DC Loperamide HCl (Imodium) 2 mg 1X ONCE PO Last administered on 04/14/17 10:15 ; Start 04/14/17 at 10:15; Stop 04/14/17 at 10:16; Status DC Metoprolol Tartrate (Lopressor) 25 mg Q8HRS PO Last administered on 04/15/17 05:59; Start 04/14/17 at 14:00 Ceftriaxone Sodium 1 gm/ Sodium Chloride 50 ml @ 100 mls/hr Q24H IV Last administered on 04/14/17 16:32; Start 04/14/17 at 16:15; Stop 04/15/17 at 10:32 ; Status DC Furosemide (Lasix) 10 mg 1X ONCE IVP Last administered on 04/14/17 16:31; Start 04/14/17 at 16:00; Stop 04/14/17 at 16:01; Status DC Magnesium Sulfate 50 ml @ 25 mls/hr 1X ONCE IV Last administered on 04/15/17 07:59; Start 04/15/17 at 07:45; Stop 04/15/17 at 09:44; Status DC Warfarin Sodium (Coumadin) 1 mg 1X WARF ONCE PO ; Start 04/15/17 at 16:00; Stop 04/15/17 at 16:01 Furosemide (Lasix) 20 mg 1X ONCE IVP Last administered on 04/15/17 09:09; Start 04/15/17 at 08:10; Stop 04/15/17 at 08:11; Status DC Enoxaparin Sodium (Lovenox 80mg Syringe) 80 mg Q12H SQ Last administered on 08:51; Start 04/15/17 at 08:15 Piperacillin Sod/ Tazobactam Sod (Zosyn Per Pharmacy) 1 each PRN DAILY PRN MC SEE COMMENTS; Start 04/15/17 at 10:30 Vancomycin HCl (Vanco Per Pharmacy) 1 each PRN DAILY PRN MC SEE COMMENTS; Start 04/15/17 at 10:30 Piperacillin Sod/ Tazobactam Sod 3.375 gm/Sodium Chloride 50 ml @ 100 mls/hr Q6HRS IV ; Start 04/15/17 at 12:00 Vancomycin HCl 2 gm/Sodium Chloride 500 ml @ 250 mls/hr 1X ONCE IV ; Start at 11:00; Stop 04/15/17 at 11:26; Status DC Furosemide (Lasix) 20 mg 1X ONCE IVP ; Start 04/15/17 at 11:00; Stop 04/15/17 at 11:01; Status DC Vancomycin HCl 2 gm/Sodium Chloride 500 ml @ 250 mls/hr 1X ONCE IV ; Start at 12:30; Stop 04/15/17 at 14:29 Active Scripts Active Amlodipine Besylate 10 Mg Tablet 1 Tab PO DAILY Reported Diovan (Valsartan) 320 Mg Tablet 1 Tab PO DAILY Thera-M (Multivits,Th W-Fe,Other Min) 1 Each Tablet 1 Each PO DAILY Metoprolol Tartrate 50 Mg Tablet 1 Tab PO HS Metoprolol Tartrate 100 Mg Tablet 1 Tab PO DAILY Vitamin B-12 (Cyanocobalamin (Vitamin B-12)) 100 Mcg Tablet 100 Mcg PO DAILY Calcium + D3 Er Tablet (Calcium Carb & Cit/Vitamin D3) 1 Each Tablet.er 1 Each PO DAILY Lipitor (Atorvastatin Calcium) 10 Mg Tablet 1 Tab PO DAILY Aspir-Low (Aspirin) 81 Mg Tablet.dr 1 Tab PO DAILY Ascorbic Acid 500 Mg Tablet 500 Mg PO DAILY Coumadin (Warfarin Sodium) 1 Mg Tablet 2 Mg PO DAILYWSUP Vitals/I & O Vital Sign - Last 24 Hours 04/14/17 04/14/17 04/14/17 04/14/17 12:39 13:03 13:52 15:10 Temp 97.9 Pulse 102 100 100 Resp 26 27 B/P (MAP) 134/70 (91) 132/59 (83) 125/64 Pulse Ox 96 96 O2 Delivery Room Air Room Air Nasal Cannula O2 Flow Rate 2.0 2.0 7/13/04/14/17 04/14/17 04/14/17 15:52 16:17 16:20 17:24 Pulse 90 100 96 Resp 22 B/P (MAP) 120/77 (91) 132/59 (83) 134/70 (91) Pulse Ox 96 96 96 O2 Delivery Nasal Cannula Nasal Cannula Nasal Cannula Nasal Cannula O2 Flow Rate 2.0 2.0 2.0 2.0 04/14/17 04/14/17 04/14/17 04/14/17 18:28 19:00 20:00 20:00 Temp 98.4 Pulse 95 110 105 Resp 20 B/P (MAP) 143/79 (100) 136/86 (103) 123/61 (81) Pulse Ox 96 96 95 O2 Delivery Nasal Cannula Nasal Cannula Nasal Cannula Nasal Cannula O2 Flow Rate 2.0 2.0 2.0 2.0 04/14/17 04/14/17 04/14/17 04/14/17 21:00 21:29 21:59 23:00 Pulse 109 109 106 92 Resp 18 B/P (MAP) 115/65 (82) 115/65 126/62 (83) 97/55 (69) O2 Delivery Nasal Cannula Nasal Cannula Nasal Cannula O2 Flow Rate 2.0 2.0 2.0 04/15/17 04/15/17 04/15/17 04/15/17 00:01 00:01 01:00 02:00 Pulse 90 96 84 Resp B/P (MAP) 132/68 (89) 118/58 (78) 133/66 (88) O2 Delivery Nasal Cannula Nasal Cannula Nasal Cannula Nasal Cannula O2 Flow Rate 2.0 2.0 2.0 2.0 04/15/17 04/15/17 04/15/17 04/15/17 03:00 04:00 04:00 05:00 Temp 98.0 Pulse 97 111 98 Resp B/P (MAP) 119/73 (88) 116/63 (80) 134/84 (101) Pulse Ox 95 96 O2 Delivery Nasal Cannula Nasal Cannula Nasal Cannula Nasal Cannula O2 Flow Rate 2.0 2.0 2.0 2.0 04/15/17 04/15/17 04/15/17 04/15/17 05:59 06:00 07:42 07:44 Pulse 111 120 93 Resp 24 20 B/P (MAP) 116/63 126/86 (99) 119/62 (81) O2 Delivery Nasal Cannula Nasal Cannula Nasal Cannula O2 Flow Rate 2.0 2.0 2.0 04/15/17 04/15/17 04/15/17 04/15/17 07:52 08:52 09:52 11:25 Temp 98.3 Pulse 112 120 86 114 Resp 22 22 22 20 B/P (MAP) 139/83 (101) 121/72 (88) 104/56 (72) 97/63 (74) Pulse Ox 97 O2 Delivery Nasal Cannula Nasal Cannula Nasal Cannula Room Air O2 Flow Rate 2.0 2.0 2.0 04/15/17 04/15/17 12:06 12:20 Pulse 117 Resp 24 B/P (MAP) 98/69 (79) O2 Delivery Room Air Room Air Intake and Output 04/14/17 04/14/17 04/15/17 15:00 23:00 07:00 Intake Total 850 ml 2050 ml 300 ml Output Total 800 ml 1375 ml 900 ml Balance 50 ml 675 ml -600 ml CELSO [employer] Apr 15, 2017 12:40
[2017-04-15] MEDS: VANCOMYCIN PER PHARMACY MC PRN (13:45)
[2017-04-15] MEDS ORDERED: WARFARIN 1 MG TABLET. PO ONE (16:00)
[2017-04-15] MEDS: DIGOXIN 125 MCG TABLET PO SCH (16:21)
[2017-04-16] VITALS (13 sets, daily range): BP systolic 81–140; BP diastolic 49–81
[2017-04-16] MEDS: PIPERACILLIN/TAZOBACTAM 3.375 GM in IV NORMAL SALINE 50ML 50 ML IV SCH ×3 (05:02→17:31)
[2017-04-16] MEDS: METOPROLOL TART IMMED RELEASE 25 MG TABLET PO SCH ×3 (05:03→22:00)
[2017-04-16 08:43] LABS: BASO # 0.1 x10^3/uL (0.0-0.2); BASO % 1 % (0-3); EOS # 0.3 x10^3/uL (0.0-0.7); EOS % 3 % (0-3); HEMATOCRIT 34.1 % (36.0-47.0); HEMOGLOBIN 11.6 g/dL (12.0-15.5); LYMPH # 0.9 x10^3/uL (1.0-4.8); LYMPH % 9 % (24-48); MEAN CORPUSCULAR HEMOGLOBIN 29 pg (25-35); MEAN CORPUSCULAR HGB CONC 34 g/dL (31-37); MEAN CORPUSCULAR VOLUME 85 fL (79-100); MONO # 1.1 x10^3/uL (0.0-1.1); MONO % 12 % (0-9); NEUT # 7.2 x10^3uL (1.8-7.7); NEUT % 76 % (31-73); PLATELET COUNT 222 x10^3/uL (140-400); RED BLOOD COUNT 4.02 x10^6/uL (3.50-5.40); RED CELL DISTRIBUTION WIDTH 14.6 % (11.5-14.5); WHITE BLOOD COUNT 9.5 x10^3/uL (4.0-11.0)
[2017-04-16] MEDS: ENOXAPARIN ** NOTE DOSE ** SYRINGE SQ SCH (08:49)
[2017-04-16] MEDS: FAMOTIDINE 20 MG TABLET PO SCH (08:49)
[2017-04-16] MEDS: DIGOXIN 125 MCG TABLET PO SCH (08:49)
[2017-04-16] MEDS: LACTOBACILLUS ACIDOPH & BULGAR 1 TABLET. PO SCH (08:49)
[2017-04-16 08:51] LABS: CALCIUM 7.6 mg/dL (8.5-10.1); CREATININE 1.2 mg/dL (0.6-1.0); GFR 42.6; POTASSIUM 3.4 mmol/L (3.5-5.1)
[2017-04-16 10:23] LABS: % BANDS 2 % (0-9); % EOS 1 % (0-5); % LYMPHS 11 % (24-48); % MONOS 16 % (0-10); % SEGS 70 % (35-66)
[2017-04-16 10:24] LABS: PLT ESTIMATE ADEQUATE (ADEQUATE)
[2017-04-16 10:27] LABS: ANISOCYTOSIS SLIGHT
--- NOTE | 2017-04-16 11:47 | PDOC ---
PROGRESS NOTES Assessment 1. Pneumonia, community acquired: Pt on Vanc/Zosyn, was previously on Cipro and Flagyl. Doing well. WBC now normal. Afebrile. Will continue abx today, consider transition to oral beta-lactam at discharge. Risk factors for MRSA are low given negative screen, so will d/c Vanc at d/c. 2. Atrial fibrillation, chronic: Pt anticoagulated adequately, rate controlled w/ BB> Lovenox d/c'd due to therapeutic warfarin. Cardiology following. 3. Stable chronic systolic HF: EF 40%. Continue meds as is. Cardiology following. 4. Acute on chronic renal failure: Creat now at baseline, 1.2. Repeat in AM. 5. Fatigue: Pt reports getting worn out easily when she walks. Certainly this could be mostly deconditioning, but may want to f/u with cardiology as outpatient for stress test. She does not have chest pain or severe sx's to suggest exertional angina. 6. DVT proph: On warfarin. 7. Moderate PEM: Add nutritional supplements. 8. Diarrhea: Resolved. Hemoccult neg x 2, C dif neg x 2, stool cultures pending. 9. Hypokalemia, mild: Replace PO. Reheck in AM. 10. DIsp: WOuld like one more day of IV abx. If stable tomorrow and CXR/labs look ok, will consider discharging pt. Problems: Plan of Care: see other orders Subjective Pt states she is feeling better today. She says her stools are more formed and she denies fever or vomiting. Denies CP. Does have some easy fatigue when she walks w/ PT. Denies abd pain or rash. Denies leg swelling. Pt states she is looking forward to going home soon. Objective Vital Signs Date Time Temp Pulse Resp B/P (MAP) Pulse Ox O2 Delivery O2 Flow Rate FiO2 04/16/17 08:49 82 109/49 04/16/17 08:00 Room Air 04/16/17 07:00 20 94 04/16/17 05:08 98.1 04/15/17 09:52 2.0 Intake and Output 04/16/17 07:00 Intake Total 640 ml Output Total 2750 ml Balance -2110 ml Intake Oral 640 ml Output Urine Total 2750 ml # Voids 1 # Bowel Movements 1 Abdomen: Normal bowel sounds, Soft, No tenderness, No masses Heart: Other (Irregularly irregular w/ subtle 1/6 TRUNG heard best at left upper sternal border) Extremities: Other (Trace to 1+ BLE edema) General: Alert, Oriented X3, Cooperative, No acute distress HEENT: Atraumatic, PERRLA, EOMI, Mucous membr. moist/pink Lungs: Other (Significantly diminished BS LLL, resp effort non-labored.) Neck: No JVD, No LAD Neuro: Normal gait, Normal speech, Strength at 5/5 X4 ext, Cranial nerves 3-12 NL Psych/Mental Status: Mental status NL, Mood NL Skin: No rashes, No breakdown Review of Relevant I have reviewed the following items francheska (where applicable) has been applied. Labs Laboratory Tests Test 04/15/17 05:33 04/16/17 06:00 White Blood Count 14.3 x10^3/uL (4.0-11.0) 9.5 x10^3/uL (4.0-11.0) Red Blood Count 4.40 x10^6/uL (3.50-5.40) 4.02 x10^6/uL (3.50-5.40) Hemoglobin 12.2 g/dL (12.0-15.5) 11.6 g/dL (12.0-15.5) Hematocrit 37.9 % (36.0-47.0) 34.1 % (36.0-47.0) Mean Corpuscular Volume 86 fL (79-100) 85 fL (79-100) Mean Corpuscular Hemoglobin 28 pg (25-35) 29 pg (25-35) Mean Corpuscular Hemoglobin Concent 32 g/dL (31-37) 34 g/dL (31-37) Red Cell Distribution Width 14.9 % (11.5-14.5) 14.6 % (11.5-14.5) Platelet Count 204 x10^3/uL (140-400) 222 x10^3/uL (140-400) Neutrophils (%) (Auto) 83 % (31-73) 76 % (31-73) Lymphocytes (%) (Auto) 9 % (24-48) 9 % (24-48) Monocytes (%) (Auto) 7 % (0-9) 12 % (0-9) Eosinophils (%) (Auto) 1 % (0-3) 3 % (0-3) Basophils (%) (Auto) 0 % (0-3) 1 % (0-3) Neutrophils # (Auto) 11.8 x10^3uL (1.8-7.7) 7.2 x10^3uL (1.8-7.7) Lymphocytes # (Auto) 1.3 x10^3/uL (1.0-4.8) 0.9 x10^3/uL (1.0-4.8) Monocytes # (Auto) 0.9 x10^3/uL (0.0-1.1) 1.1 x10^3/uL (0.0-1.1) Eosinophils # (Auto) 0.2 x10^3/uL (0.0-0.7) 0.3 x10^3/uL (0.0-0.7) Basophils # (Auto) 0.0 x10^3/uL (0.0-0.2) 0.1 x10^3/uL (0.0-0.2) Prothrombin Time 18.6 SEC (9.4-11.4) 23.9 SEC (9.4-11.4) Prothromb Time International Ratio 1.8 (0.9-1.1) 2.3 (0.9-1.1) Sodium Level 139 mmol/L (136-145) 141 mmol/L (136-145) Potassium Level 3.7 mmol/L (3.5-5.1) 3.4 mmol/L (3.5-5.1) Chloride Level 108 mmol/L (98-107) 109 mmol/L (98-107) Carbon Dioxide Level 18 mmol/L (21-32) 20 mmol/L (21-32) Anion Gap 13 (6-14) 12 (6-14) Blood Urea Nitrogen 18 mg/dL (7-20) 17 mg/dL (7-20) Creatinine 1.2 mg/dL (0.6-1.0) 1.2 mg/dL (0.6-1.0) Estimated GFR (Cockcroft-Gault) 42.6 42.6 BUN/Creatinine Ratio 15 (6-20) Glucose Level 114 mg/dL (70-99) 119 mg/dL (70-99) Calcium Level 8.0 mg/dL (8.5-10.1) 7.6 mg/dL (8.5-10.1) Magnesium Level 1.6 mg/dL (1.8-2.4) Total Bilirubin 0.5 mg/dL (0.2-1.0) Aspartate Amino Transf (AST/SGOT) 20 U/L (15-37) Alanine Aminotransferase (ALT/SGPT) 21 U/L (14-59) Alkaline Phosphatase 97 U/L (46-116) Total Protein 6.8 g/dL (6.4-8.2) Albumin 2.8 g/dL (3.4-5.0) Albumin/Globulin Ratio 0.7 (1.0-1.7) Segmented Neutrophils % 70 % (35-66) Band Neutrophils % 2 % (0-9) Lymphocytes % 11 % (24-48) Monocytes % 16 % (0-10) Eosinophils % 1 % (0-5) Platelet Estimate Adequate (ADEQUATE) Anisocytosis Slight Microbiology 04/12/17 Blood Culture - Preliminary, Resulted NO GROWTH AFTER 3 DAYS Medications Current Medications Sodium Chloride 1,000 ml @ 1,000 mls/hr 1X ONCE IV Last administered on 08:35; Start 04/12/17 at 08:30; Stop 04/12/17 at 09:29; Status DC Diltiazem HCl (Cardizem) 10 mg 1X ONCE IVP Last administered on 04/12/17 10: 02; Start 04/12/17 at 10:00; Stop 04/12/17 at 10:01; Status DC Diltiazem HCl 125 mg/Dextrose 125 ml @ 0 mls/hr 1X ONCE IV Last administered on 04/12/17 10:26; Start 04/12/17 at 10:00; Stop 04/12/17 at 10:01; Status DC Lidocaine/Sodium Bicarbonate (Buffered Lidocaine 1%) 3 ml 1X ONCE IJ ; Start at 10:00; Stop 04/12/17 at 10:00; Status DC Ondansetron HCl (Zofran) 4 mg PRN Q4HRS PRN IV NAUSEA/VOMITING; Start 04/12/17 at 11:00; Stop 04/13/17 at 10:14; Status DC Sodium Chloride 1,000 ml @ 125 mls/hr 1X ONCE IV Last administered on 11:00; Start 04/12/17 at 11:00; Stop 04/12/17 at 18:59; Status DC Ondansetron HCl (Zofran) 4 mg PRN Q8HRS PRN IV NAUSEA/VOMITING; Start 04/12/17 at 12:30 Magnesium Sulfate 50 ml @ 25 mls/hr 1X ONCE IV Last administered on 04/12/17 13:49; Start 04/12/17 at 13:10; Stop 04/12/17 at 15:09; Status DC Famotidine (Pepcid) 20 mg BID IVP Last administered on 04/13/17 08:18; Start 04/12/17 at 21:00; Stop 04/13/17 at 10:19; Status DC Multivitamins/ Minerals 10 ml/ Folic Acid 1 mg/ Thiamine HCl 100 mg/Potassium Chloride 20 meq/ Dextrose/Lactated Ringer's 1,021.2 ml @ 150 mls/ hr 1X ONCE IV Last administered on 04/12/17 15:59; Start 04/12/17 at 16:00; Stop at 22:48; Status DC Insulin Aspart (NovoLOG) 0-5 UNITS QIDACHS SQ ; Start 04/12/17 at 16:30; Stop at 08:19; Status DC Dextrose 12.5 gm PRN Q15MIN PRN IV SEE COMMENTS; Start 04/12/17 at 15:30; Stop 04/14/17 at 08:19; Status DC Metronidazole 100 ml @ 100 mls/hr Q8HRS IV Last administered on 04/15/17 05: 58; Start 04/12/17 at 16:00; Stop 04/15/17 at 10:28; Status DC Sodium Chloride 1,000 ml @ 250 mls/hr 1X ONCE IV Last administered on 16:00; Start 04/12/17 at 16:00; Stop 04/12/17 at 19:59; Status DC Sodium Chloride 500 ml @ As Directed STK-MED ONCE .ROUTE Last administered on 04/12/17 15:59; Start 04/12/17 at 15:51; Stop 04/12/17 at 15:52; Status DC Diltiazem HCl 100 mg/Dextrose 100 ml @ 5 mls/hr CONT PRN IV SEE I/O RECORD; Start 04/12/17 at 18:00 Digoxin (Lanoxin) 500 mcg 1X ONCE IV Last administered on 04/12/17 19:12; Start 04/12/17 at 18:45; Stop 04/12/17 at 18:46; Status DC Metoprolol Tartrate (Lopressor) 12.5 mg Q6HRS PO Last administered on 05:42; Start 04/12/17 at 19:00; Stop 04/14/17 at 10:53; Status DC Potassium Chloride/Sodium Chloride 1,000 ml @ 75 mls/hr [id number] IV Last administered on 04/14/17 21:29; Start 04/13/17 at 01:00; Stop 04/15/17 at 08:35 ; Status DC Loperamide HCl (Imodium) 2 mg 1X ONCE PO Last administered on 04/13/17 08:18 ; Start 04/13/17 at 08:30; Stop 04/13/17 at 08:31; Status DC Multivitamins/ Minerals 10 ml/ Folic Acid 1 mg/ Thiamine HCl 100 mg/Sodium Chloride 1,011.2 ml @ 0 mls/hr 1X ONCE IV Last administered on 04/13/17 08: 42; Start 04/13/17 at 09:00; Stop 04/13/17 at 09:01; Status DC Lactobacillus Acidophilus (Bacid, Chata-Bid) 2 tab DAILY PO Last administered on 04/16/17 08:49; Start 04/13/17 at 09:00 Digoxin (Lanoxin) 125 mcg ONCE ONCE IV Last administered on 04/13/17 10:07; Start 04/13/17 at 10:00; Stop 04/13/17 at 10:01; Status DC Sodium Chloride 500 ml @ 0 mls/hr 1X ONCE IV Last administered on 04/13/17 10 :07; Start 04/13/17 at 10:00; Stop 04/13/17 at 10:01; Status DC Trimethoprim/ Sulfamethoxazole (Bactrim Ds) 1 tab DAILY PO Last administered on 04/14/17 08:16; Start 04/13/17 at 10:00; Stop 04/14/17 at 09:12; Status DC Famotidine (Pepcid) 20 mg BID PO Last administered on 04/13/17 21:30; Start at 21:00; Stop 04/14/17 at 07:35; Status DC Enoxaparin Sodium (Lovenox 80mg Syringe) 80 mg Q24H SQ Last administered on 08:17; Start 04/14/17 at 09:00; Stop 04/15/17 at 08:13; Status DC Warfarin Sodium (Coumadin Per Pharmacy) 1 each PRN DAILY PRN MC SEE COMMENTS Last administered on 04/16/17 09:32; Start 04/14/17 at 07:30 Famotidine (Pepcid) 20 mg DAILY PO Last administered on 04/16/17 08:49; Start 04/14/17 at 09:00 Warfarin Sodium (Coumadin) 1 mg 1X WARF ONCE PO Last administered on 16:31; Start 04/14/17 at 16:00; Stop 04/14/17 at 16:01; Status DC Ciprofloxacin Lactate 100 ml @ 100 mls/hr Q12HR IV Last administered on 10:15; Start 04/14/17 at 09:30; Stop 04/14/17 at 15:54; Status DC Loperamide HCl (Imodium) 2 mg 1X ONCE PO Last administered on 04/14/17 10:15 ; Start 04/14/17 at 10:15; Stop 04/14/17 at 10:16; Status DC Metoprolol Tartrate (Lopressor) 25 mg Q8HRS PO Last administered on 04/16/17 05:03; Start 04/14/17 at 14:00 Ceftriaxone Sodium 1 gm/ Sodium Chloride 50 ml @ 100 mls/hr Q24H IV Last administered on 04/14/17 16:32; Start 04/14/17 at 16:15; Stop 04/15/17 at 10:32 ; Status DC Furosemide (Lasix) 10 mg 1X ONCE IVP Last administered on 04/14/17 16:31; Start 04/14/17 at 16:00; Stop 04/14/17 at 16:01; Status DC Magnesium Sulfate 50 ml @ 25 mls/hr 1X ONCE IV Last administered on 04/15/17 07:59; Start 04/15/17 at 07:45; Stop 04/15/17 at 09:44; Status DC Warfarin Sodium (Coumadin) 1 mg 1X WARF ONCE PO Last administered on 16:21; Start 04/15/17 at 16:00; Stop 04/15/17 at 16:02; Status DC Furosemide (Lasix) 20 mg 1X ONCE IVP Last administered on 04/15/17 09:09; Start 04/15/17 at 08:10; Stop 04/15/17 at 08:11; Status DC Enoxaparin Sodium (Lovenox 80mg Syringe) 80 mg Q12H SQ Last administered on 08:49; Start 04/15/17 at 08:15; Stop 04/16/17 at 12:00 Piperacillin Sod/ Tazobactam Sod (Zosyn Per Pharmacy) 1 each PRN DAILY PRN MC SEE COMMENTS; Start 04/15/17 at 10:30 Vancomycin HCl (Vanco Per Pharmacy) 1 each PRN DAILY PRN MC SEE COMMENTS Last administered on 04/15/17 13:45; Start 04/15/17 at 10:30 Piperacillin Sod/ Tazobactam Sod 3.375 gm/Sodium Chloride 50 ml @ 100 mls/hr Q6HRS IV Last administered on 04/16/17 05:02; Start 04/15/17 at 12:00 Vancomycin HCl 2 gm/Sodium Chloride 500 ml @ 250 mls/hr 1X ONCE IV ; Start at 11:00; Stop 04/15/17 at 11:26; Status DC Furosemide (Lasix) 20 mg 1X ONCE IVP Last administered on 04/15/17 14:56; Start 04/15/17 at 11:00; Stop 04/15/17 at 11:01; Status DC Vancomycin HCl 2 gm/Sodium Chloride 500 ml @ 250 mls/hr 1X ONCE IV Last administered on 04/15/17 12:30; Start 04/15/17 at 12:30; Stop 04/15/17 at 14:29 ; Status DC Vancomycin HCl 1.25 gm/Sodium Chloride 250 ml @ 166.667 mls/hr Q24H IV ; Start 04/16/17 at 12:30 Vancomycin HCl 1 each 1X ONCE MC ; Start 04/15/17 at 13:40; Stop 04/15/17 at 13 :41; Status DC Vancomycin HCl 1 each 1X ONCE MC ; Start 04/17/17 at 12:00; Stop 04/17/17 at 12 :01 Digoxin (Lanoxin) 125 mcg DAILY PO Last administered on 04/16/17t 08:49; Start 04/15/17 at 16:10 Warfarin Sodium (Coumadin) 1 mg 1X WARF ONCE PO ; Start 04/16/17 at 16:00; Stop 04/16/17 at 16:01 Active Scripts Active Amlodipine Besylate 10 Mg Tablet 1 Tab PO DAILY Reported Diovan (Valsartan) 320 Mg Tablet 1 Tab PO DAILY Thera-M (Multivits,Th W-Fe,Other Min) 1 Each Tablet 1 Each PO DAILY Metoprolol Tartrate 50 Mg Tablet 1 Tab PO HS Metoprolol Tartrate 100 Mg Tablet 1 Tab PO DAILY Vitamin B-12 (Cyanocobalamin (Vitamin B-12)) 100 Mcg Tablet 100 Mcg PO DAILY Calcium + D3 Er Tablet (Calcium Carb & Cit/Vitamin D3) 1 Each Tablet.er 1 Each PO DAILY Lipitor (Atorvastatin Calcium) 10 Mg Tablet 1 Tab PO DAILY Aspir-Low (Aspirin) 81 Mg Tablet.dr 1 Tab PO DAILY Ascorbic Acid 500 Mg Tablet 500 Mg PO DAILY Coumadin (Warfarin Sodium) 1 Mg Tablet 2 Mg PO DAILYWSUP Vitals/I & O Vital Sign - Last 24 Hours 04/15/17 04/15/17 04/15/17 04/15/17 12:06 12:20 12:52 16:00 Pulse 117 106 Resp 24 35 B/P (MAP) 98/69 (79) 117/66 (83) O2 Delivery Room Air Room Air Room Air Room Air 04/15/17 04/15/17 04/15/17 04/15/17 16:21 19:05 19:05 19:06 Pulse 107 104 118 95 Resp 27 26 29 B/P (MAP) 115/56 126/76 (93) 104/71 (82) 107/57 (74) O2 Delivery Room Air Room Air Room Air 04/15/17 04/15/17 04/15/17 04/15/17 20:44 20:52 20:57 21:12 Temp 98.2 Pulse 96 108 96 Resp 25 24 B/P (MAP) 112/76 (88) 113/58 (76) 112/76 Pulse Ox 95 O2 Delivery Room Air Room Air Room Air 04/15/17 04/15/17 04/15/17 04/16/17 22:19 23:35 23:59 02:02 Pulse 93 95 96 Resp 29 22 B/P (MAP) 107/54 (71) 108/58 (75) Pulse Ox 98 97 O2 Delivery Room Air Room Air Room Air 04/16/17 04/16/17 04/16/17 04/16/17 02:59 03:59 03:59 05:03 Pulse 96 96 96 Resp 22 28 B/P (MAP) 105/65 (78) 108/67 (81) 108/67 Pulse Ox 93 94 O2 Delivery Room Air Room Air Room Air 04/16/17 04/16/17 04/16/17 04/16/17 05:08 06:10 07:00 08:00 Temp 98.1 Pulse 95 93 82 Resp 28 28 20 B/P (MAP) 140/77 (98) 100/63 (75) 109/49 (69) Pulse Ox 93 94 94 O2 Delivery Room Air Room Air Room Air Room Air 04/16/17 08:49 Pulse 82 B/P (MAP) 109/49 Intake and Output 04/15/17 04/15/17 04/16/17 15:00 23:00 07:00 Intake Total 240 ml 400 ml 0 ml Output Total 2375 ml 375 ml Balance 240 ml -1975 ml -375 ml ANIRUDH ANNE MD Apr 16, 2017 11:47
[2017-04-16] MEDS ORDERED: POTASSIUM CHLORIDE 20 MEQ TABLET.ER. PO ONE (12:00)
[2017-04-16] MEDS: VANCOMYCIN 1.25 GM in IV NORMAL SALINE 250ML 250 ML IV SCH (12:33)
--- NOTE | 2017-04-16 13:06 | RAD ---
Portable AP chest. History: Hemoptysis AP view was taken of the chest. Comparison made with a study from one day ago. There are persistent bilateral infiltrates. There are small bilateral effusions. There is increased retrocardiac density from consolidation or atelectasis or effusion. Impression: 1. Mild increased left base atelectasis or infiltrate or effusion. 2. Little other change.
[2017-04-16] MEDS ORDERED: WARFARIN 1 MG TABLET. PO ONE (16:00)
[2017-04-16] MEDS ORDERED: IV NORMAL SALINE 250ML 250 ML ONE (18:24)
[2017-04-17] VITALS (8 sets, daily range): BP systolic 100–143; BP diastolic 54–91
[2017-04-17] MEDS: PIPERACILLIN/TAZOBACTAM 3.375 GM in IV NORMAL SALINE 50ML 50 ML IV SCH ×5 (05:12→17:53)
[2017-04-17] MEDS: METOPROLOL TART IMMED RELEASE 25 MG TABLET PO SCH ×3 (05:13→21:56)
[2017-04-17 06:41] LABS: BASO # 0.1 x10^3/uL (0.0-0.2); BASO % 1 % (0-3); EOS # 0.3 x10^3/uL (0.0-0.7); EOS % 3 % (0-3); HEMATOCRIT 32.8 % (36.0-47.0); HEMOGLOBIN 11.1 g/dL (12.0-15.5); LYMPH # 1.3 x10^3/uL (1.0-4.8); LYMPH % 12 % (24-48); MEAN CORPUSCULAR HEMOGLOBIN 29 pg (25-35); MEAN CORPUSCULAR HGB CONC 34 g/dL (31-37); MEAN CORPUSCULAR VOLUME 84 fL (79-100); MONO # 2.1 x10^3/uL (0.0-1.1); MONO % 18 % (0-9); NEUT # 7.6 x10^3uL (1.8-7.7); NEUT % 67 % (31-73); PLATELET COUNT 267 x10^3/uL (140-400); RED BLOOD COUNT 3.89 x10^6/uL (3.50-5.40); RED CELL DISTRIBUTION WIDTH 14.9 % (11.5-14.5); WHITE BLOOD COUNT 11.4 x10^3/uL (4.0-11.0)
[2017-04-17 06:54] LABS: CALCIUM 7.8 mg/dL (8.5-10.1); CREATININE 1.1 mg/dL (0.6-1.0); GFR 47.1; POTASSIUM 3.6 mmol/L (3.5-5.1)
--- NOTE | 2017-04-17 08:36 | RAD ---
PA and lateral chest. History pneumonia, cough PA and lateral views were taken of the chest. There are bilateral pleural effusions larger on the left. There are bilateral areas of infiltrate more prominent on the left. There has been little change compared to the recent study. Impression: 1. No change bilateral infiltrates and bilateral effusions more prominent on the left.
[2017-04-17] MEDS: DIGOXIN 125 MCG TABLET PO SCH (08:47)
[2017-04-17] MEDS: LACTOBACILLUS ACIDOPH & BULGAR 1 TABLET. PO SCH (08:47)
[2017-04-17] MEDS: FAMOTIDINE 20 MG TABLET PO SCH (08:47)
--- NOTE | 2017-04-17 11:57 | PDOC ---
PROGRESS NOTES Assessment 1. Pneumonia, community acquired: Pt on Vanc/Zosyn, was previously on Cipro and Flagyl. Doing well, will add cough suppressant. Pt clinically improving but WBC and CXR slightly worse today. Will consider CT chest tomorrow if pt not well enough to go home. I suspect that her WBC will always fluctuate, and her CXR may be lagging behind her clinical improvement. 2. Atrial fibrillation, chronic: Pt anticoagulated with warfarin, was held yesterday due to hemoptysis. NO further episodes, INR is now slightly supratherapeutic. I will reduce her dose and start back today. Rate is controlled. 3. Stable chronic systolic HF: EF 40%. Continue meds as is. Cardiology following. 4. Acute on chronic renal failure: Creat now at baseline, 1.1. Monitor daily. 5. Fatigue: Pt reports getting worn out easily when she walks. Certainly this could be mostly deconditioning, but may want to f/u with cardiology as outpatient for stress test. She does not have chest pain or severe sx's to suggest exertional angina. 6. DVT proph: On warfarin. 7. Moderate PEM: Continue shakes for snacks. 8. Diarrhea: Resolved. Hemoccult neg x 2, C dif neg x 2, stool cultures pending. 9. Hypokalemia, mild: Resolved. 10. DIsp: Given worsening of CXR and WBC, will continue IV abx today, hopefully pt will be ready for discharge tomorrow. May need HH at discharge. Problems: Plan of Care: see other orders Subjective Pt states she is slowly getting better, but states now she has a cough. Denies any more bloody sputum. Denies bleeding of any kind. Denies chest pain or fever. No n/v. Says she had 2 stools overnight, and both of them were formed and non-bloody. Appetite is good. Denies blood in urine. Objective Vital Signs Date Time Temp Pulse Resp B/P (MAP) Pulse Ox O2 Delivery O2 Flow Rate FiO2 04/17/17 11:13 98.6 04/17/17 08:56 Room Air 04/17/17 08:47 92 143/91 04/17/17 08:00 22 91 04/16/17 21:00 2.0 Intake and Output 04/17/17 07:00 Intake Total 1980 ml Balance 1980 ml Intake Oral 1980 ml # Voids 3 # Bowel Movements 1 Heart: Other (Irregularly irregular, slightly tachy, no murmur.) Extremities: No cyanosis, No edema General: Alert, Oriented X3, Cooperative, No acute distress HEENT: Atraumatic, EOMI, Mucous membr. moist/pink Lungs: Other (Resp effort non-labored. No wheezes. Diminished breath sounds in bases, otherwise clear.) Neck: No JVD Neuro: Other (No focal neurologic abnormalities.) Psych/Mental Status: Mental status NL, Mood NL Skin: No rashes Review of Relevant I have reviewed the following items francheska (where applicable) has been applied. Labs Laboratory Tests Test 04/16/17 06:00 04/16/17 12:20 04/17/17 06:25 White Blood Count 9.5 x10^3/uL (4.0-11.0) 11.4 x10^3/uL (4.0-11.0) Red Blood Count 4.02 x10^6/uL (3.50-5.40) 3.89 x10^6/uL (3.50-5.40) Hemoglobin 11.6 g/dL (12.0-15.5) 12.9 g/dL (12.0-15.5) 11.1 g/dL (12.0-15.5) Hematocrit 34.1 % (36.0-47.0) 32.8 % (36.0-47.0) Mean Corpuscular Volume 85 fL (79-100) 84 fL (79-100) Mean Corpuscular Hemoglobin 29 pg (25-35) 29 pg (25-35) Mean Corpuscular Hemoglobin Concent 34 g/dL (31-37) 34 g/dL (31-37) Red Cell Distribution Width 14.6 % (11.5-14.5) 14.9 % (11.5-14.5) Platelet Count 222 x10^3/uL (140-400) 267 x10^3/uL (140-400) Neutrophils (%) (Auto) 76 % (31-73) 67 % (31-73) Lymphocytes (%) (Auto) 9 % (24-48) 12 % (24-48) Monocytes (%) (Auto) 12 % (0-9) 18 % (0-9) Eosinophils (%) (Auto) 3 % (0-3) 3 % (0-3) Basophils (%) (Auto) 1 % (0-3) 1 % (0-3) Neutrophils # (Auto) 7.2 x10^3uL (1.8-7.7) 7.6 x10^3uL (1.8-7.7) Lymphocytes # (Auto) 0.9 x10^3/uL (1.0-4.8) 1.3 x10^3/uL (1.0-4.8) Monocytes # (Auto) 1.1 x10^3/uL (0.0-1.1) 2.1 x10^3/uL (0.0-1.1) Eosinophils # (Auto) 0.3 x10^3/uL (0.0-0.7) 0.3 x10^3/uL (0.0-0.7) Basophils # (Auto) 0.1 x10^3/uL (0.0-0.2) 0.1 x10^3/uL (0.0-0.2) Segmented Neutrophils % 70 % (35-66) Band Neutrophils % 2 % (0-9) Lymphocytes % 11 % (24-48) Monocytes % 16 % (0-10) Eosinophils % 1 % (0-5) Platelet Estimate Adequate (ADEQUATE) Anisocytosis Slight Prothrombin Time 23.9 SEC (9.4-11.4) 27.2 SEC (9.4-11.4) 31.8 SEC (9.4-11.4) Prothromb Time International Ratio 2.3 (0.9-1.1) 2.6 (0.9-1.1) 3.1 (0.9-1.1) Sodium Level 141 mmol/L (136-145) 138 mmol/L (136-145) Potassium Level 3.4 mmol/L (3.5-5.1) 3.6 mmol/L (3.5-5.1) Chloride Level 109 mmol/L (98-107) 109 mmol/L (98-107) Carbon Dioxide Level 20 mmol/L (21-32) 21 mmol/L (21-32) Anion Gap 12 (6-14) 8 (6-14) Blood Urea Nitrogen 17 mg/dL (7-20) 18 mg/dL (7-20) Creatinine 1.2 mg/dL (0.6-1.0) 1.1 mg/dL (0.6-1.0) Estimated GFR (Cockcroft-Gault) 42.6 47.1 Glucose Level 119 mg/dL (70-99) 122 mg/dL (70-99) Calcium Level 7.6 mg/dL (8.5-10.1) 7.8 mg/dL (8.5-10.1) Microbiology 04/12/17 Blood Culture - Preliminary, Resulted NO GROWTH AFTER 4 DAYS Medications Current Medications Sodium Chloride 1,000 ml @ 1,000 mls/hr 1X ONCE IV Last administered on 08:35; Start 04/12/17 at 08:30; Stop 04/12/17 at 09:29; Status DC Diltiazem HCl (Cardizem) 10 mg 1X ONCE IVP Last administered on 04/12/17 10: 02; Start 04/12/17 at 10:00; Stop 04/12/17 at 10:01; Status DC Diltiazem HCl 125 mg/Dextrose 125 ml @ 0 mls/hr 1X ONCE IV Last administered on 04/12/17 10:26; Start 04/12/17 at 10:00; Stop 04/12/17 at 10:01; Status DC Lidocaine/Sodium Bicarbonate (Buffered Lidocaine 1%) 3 ml 1X ONCE IJ ; Start at 10:00; Stop 04/12/17 at 10:00; Status DC Ondansetron HCl (Zofran) 4 mg PRN Q4HRS PRN IV NAUSEA/VOMITING; Start 04/12/17 at 11:00; Stop 04/13/17 at 10:14; Status DC Sodium Chloride 1,000 ml @ 125 mls/hr 1X ONCE IV Last administered on 11:00; Start 04/12/17 at 11:00; Stop 04/12/17 at 18:59; Status DC Ondansetron HCl (Zofran) 4 mg PRN Q8HRS PRN IV NAUSEA/VOMITING; Start 04/12/17 at 12:30 Magnesium Sulfate 50 ml @ 25 mls/hr 1X ONCE IV Last administered on 04/12/17 13:49; Start 04/12/17 at 13:10; Stop 04/12/17 at 15:09; Status DC Famotidine (Pepcid) 20 mg BID IVP Last administered on 04/13/17 08:18; Start 04/12/17 at 21:00; Stop 04/13/17 at 10:19; Status DC Multivitamins/ Minerals 10 ml/ Folic Acid 1 mg/ Thiamine HCl 100 mg/Potassium Chloride 20 meq/ Dextrose/Lactated Ringer's 1,021.2 ml @ 150 mls/ hr 1X ONCE IV Last administered on 04/12/17 15:59; Start 04/12/17 at 16:00; Stop at 22:48; Status DC Insulin Aspart (NovoLOG) 0-5 UNITS QIDACHS SQ ; Start 04/12/17 at 16:30; Stop at 08:19; Status DC Dextrose 12.5 gm PRN Q15MIN PRN IV SEE COMMENTS; Start 04/12/17 at 15:30; Stop 04/14/17 at 08:19; Status DC Metronidazole 100 ml @ 100 mls/hr Q8HRS IV Last administered on 04/15/17 05: 58; Start 04/12/17 at 16:00; Stop 04/15/17 at 10:28; Status DC Sodium Chloride 1,000 ml @ 250 mls/hr 1X ONCE IV Last administered on 16:00; Start 04/12/17 at 16:00; Stop 04/12/17 at 19:59; Status DC Sodium Chloride 500 ml @ As Directed STK-MED ONCE .ROUTE Last administered on 04/12/17 15:59; Start 04/12/17 at 15:51; Stop 04/12/17 at 15:52; Status DC Diltiazem HCl 100 mg/Dextrose 100 ml @ 5 mls/hr CONT PRN IV SEE I/O RECORD; Start 04/12/17 at 18:00 Digoxin (Lanoxin) 500 mcg 1X ONCE IV Last administered on 04/12/17 19:12; Start 04/12/17 at 18:45; Stop 04/12/17 at 18:46; Status DC Metoprolol Tartrate (Lopressor) 12.5 mg Q6HRS PO Last administered on 05:42; Start 04/12/17 at 19:00; Stop 04/14/17 at 10:53; Status DC Potassium Chloride/Sodium Chloride 1,000 ml @ 75 mls/hr [id number] IV Last administered on 04/14/17 21:29; Start 04/13/17 at 01:00; Stop 04/15/17 at 08:35 ; Status DC Loperamide HCl (Imodium) 2 mg 1X ONCE PO Last administered on 04/13/17 08:18 ; Start 04/13/17 at 08:30; Stop 04/13/17 at 08:31; Status DC Multivitamins/ Minerals 10 ml/ Folic Acid 1 mg/ Thiamine HCl 100 mg/Sodium Chloride 1,011.2 ml @ 0 mls/hr 1X ONCE IV Last administered on 04/13/17 08: 42; Start 04/13/17 at 09:00; Stop 04/13/17 at 09:01; Status DC Lactobacillus Acidophilus (Bacid, Chata-Bid) 2 tab DAILY PO Last administered on 04/17/17 08:47; Start 04/13/17 at 09:00 Digoxin (Lanoxin) 125 mcg ONCE ONCE IV Last administered on 04/13/17 10:07; Start 04/13/17 at 10:00; Stop 04/13/17 at 10:01; Status DC Sodium Chloride 500 ml @ 0 mls/hr 1X ONCE IV Last administered on 04/13/17 10 :07; Start 04/13/17 at 10:00; Stop 04/13/17 at 10:01; Status DC Trimethoprim/ Sulfamethoxazole (Bactrim Ds) 1 tab DAILY PO Last administered on 04/14/17 08:16; Start 04/13/17 at 10:00; Stop 04/14/17 at 09:12; Status DC Famotidine (Pepcid) 20 mg BID PO Last administered on 04/13/17 21:30; Start at 21:00; Stop 04/14/17 at 07:35; Status DC Enoxaparin Sodium (Lovenox 80mg Syringe) 80 mg Q24H SQ Last administered on 08:17; Start 04/14/17 at 09:00; Stop 04/15/17 at 08:13; Status DC Warfarin Sodium (Coumadin Per Pharmacy) 1 each PRN DAILY PRN MC SEE COMMENTS Last administered on 04/17/17 07:49; Start 04/14/17 at 07:30; Status Future Hold Famotidine (Pepcid) 20 mg DAILY PO Last administered on 04/17/17 08:47; Start 04/14/17 at 09:00 Warfarin Sodium (Coumadin) 1 mg 1X WARF ONCE PO Last administered on 16:31; Start 04/14/17 at 16:00; Stop 04/14/17 at 16:01; Status DC Ciprofloxacin Lactate 100 ml @ 100 mls/hr Q12HR IV Last administered on 10:15; Start 04/14/17 at 09:30; Stop 04/14/17 at 15:54; Status DC Loperamide HCl (Imodium) 2 mg 1X ONCE PO Last administered on 04/14/17 10:15 ; Start 04/14/17 at 10:15; Stop 04/14/17 at 10:16; Status DC Metoprolol Tartrate (Lopressor) 25 mg Q8HRS PO Last administered on 04/17/17 05:13; Start 04/14/17 at 14:00 Ceftriaxone Sodium 1 gm/ Sodium Chloride 50 ml @ 100 mls/hr Q24H IV Last administered on 04/14/17 16:32; Start 04/14/17 at 16:15; Stop 04/15/17 at 10:32 ; Status DC Furosemide (Lasix) 10 mg 1X ONCE IVP Last administered on 04/14/17 16:31; Start 04/14/17 at 16:00; Stop 04/14/17 at 16:01; Status DC Magnesium Sulfate 50 ml @ 25 mls/hr 1X ONCE IV Last administered on 04/15/17 07:59; Start 04/15/17 at 07:45; Stop 04/15/17 at 09:44; Status DC Warfarin Sodium (Coumadin) 1 mg 1X WARF ONCE PO Last administered on 16:21; Start 04/15/17 at 16:00; Stop 04/15/17 at 16:02; Status DC Furosemide (Lasix) 20 mg 1X ONCE IVP Last administered on 04/15/17 09:09; Start 04/15/17 at 08:10; Stop 04/15/17 at 08:11; Status DC Enoxaparin Sodium (Lovenox 80mg Syringe) 80 mg Q12H SQ Last administered on 08:49; Start 04/15/17 at 08:15; Stop 04/16/17 at 12:01; Status DC Piperacillin Sod/ Tazobactam Sod (Zosyn Per Pharmacy) 1 each PRN DAILY PRN MC SEE COMMENTS; Start 04/15/17 at 10:30 Vancomycin HCl (Vanco Per Pharmacy) 1 each PRN DAILY PRN MC SEE COMMENTS Last administered on 04/15/17 13:45; Start 04/15/17 at 10:30 Piperacillin Sod/ Tazobactam Sod 3.375 gm/Sodium Chloride 50 ml @ 100 mls/hr Q6HRS IV Last administered on 04/17/17 05:12; Start 04/15/17 at 12:00 Vancomycin HCl 2 gm/Sodium Chloride 500 ml @ 250 mls/hr 1X ONCE IV ; Start at 11:00; Stop 04/15/17 at 11:26; Status DC Furosemide (Lasix) 20 mg 1X ONCE IVP Last administered on 04/15/17 14:56; Start 04/15/17 at 11:00; Stop 04/15/17 at 11:01; Status DC Vancomycin HCl 2 gm/Sodium Chloride 500 ml @ 250 mls/hr 1X ONCE IV Last administered on 04/15/17 12:30; Start 04/15/17 at 12:30; Stop 04/15/17 at 14:29 ; Status DC Vancomycin HCl 1.25 gm/Sodium Chloride 250 ml @ 166.667 mls/hr Q24H IV Last administered on 04/16/17 12:33; Start 04/16/17 at 12:30 Vancomycin HCl 1 each 1X ONCE MC ; Start 04/15/17 at 13:40; Stop 04/15/17 at 13 :41; Status DC Vancomycin HCl 1 each 1X ONCE MC ; Start 04/17/17 at 12:00; Stop 04/17/17 at 12 :01 Digoxin (Lanoxin) 125 mcg DAILY PO Last administered on 04/17/17 08:47; Start 7/14/17 at 16:10 Warfarin Sodium (Coumadin) 1 mg 1X WARF ONCE PO Last administered on 16:42; Start 04/16/17 at 16:00; Stop 04/16/17 at 16:01; Status DC Potassium Chloride (Klor-Con) 20 meq 1X ONCE PO Last administered on 12:32; Start 04/16/17 at 12:00; Stop 04/16/17 at 12:08; Status DC Sodium Chloride 250 ml @ As Directed STK-MED ONCE .ROUTE Last administered on 04/16/17 18:27; Start 04/16/17 at 18:24; Stop 04/16/17 at 18:25; Status DC Warfarin Sodium (Coumadin - No Dose Today) 1 each 1X WARF ONCE MC ; Start 04/17 at 16:00; Stop 04/17/17 at 16:01 Active Scripts Active Amlodipine Besylate 10 Mg Tablet 1 Tab PO DAILY Reported Diovan (Valsartan) 320 Mg Tablet 1 Tab PO DAILY Thera-M (Multivits, W-Fe,Other Min) 1 Each Tablet 1 Each PO DAILY Metoprolol Tartrate 50 Mg Tablet 1 Tab PO HS Metoprolol Tartrate 100 Mg Tablet 1 Tab PO DAILY Vitamin B-12 (Cyanocobalamin (Vitamin B-12)) 100 Mcg Tablet 100 Mcg PO DAILY Calcium + D3 Er Tablet (Calcium Carb & Cit/Vitamin D3) 1 Each Tablet.er 1 Each PO DAILY Lipitor (Atorvastatin Calcium) 10 Mg Tablet 1 Tab PO DAILY Aspir-Low (Aspirin) 81 Mg Tablet. 1 Tab PO DAILY Ascorbic Acid 500 Mg Tablet 500 Mg PO DAILY Coumadin (Warfarin Sodium) 1 Mg Tablet 2 Mg PO DAILYWSUP Vitals/I & O Vital Sign - Last 24 Hours 04/16/17 04/16/17 04/16/17 04/16/17 11:56 12:00 14:01 15:02 Temp 99.1 Pulse 72 112 112 Resp 24 20 B/P (MAP) 96/56 (69) 118/61 (80) 118/61 Pulse Ox 95 95 O2 Delivery Room Air Room Air Room Air 04/16/17 04/16/17 04/16/17 04/16/17 15:31 18:24 21:00 21:29 Temp 97.8 98.7 98.8 Pulse 103 106 99 Resp 23 20 20 B/P (MAP) 118/72 (87) 107/68 (81) 120/81 (94) Pulse Ox 95 96 94 O2 Delivery Room Air Room Air Room Air Room Air O2 Flow Rate 2.0 04/16/17 04/17/17 04/17/17 04/17/17 22:00 00:23 05:13 05:37 Temp 98.7 Pulse 99 86 86 94 Resp 18 B/P (MAP) 120/81 120/81 115/60 (78) Pulse Ox 94 96 O2 Delivery Room Air Room Air 04/17/17 04/17/17 04/17/17 04/17/17 08:00 08:47 08:56 11:13 Temp 97.9 98.6 Pulse 92 92 Resp 22 B/P (MAP) 143/91 (108) 143/91 Pulse Ox 91 O2 Delivery Room Air Room Air Intake and Output 04/16/17 04/16/17 04/17/17 15:00 23:00 07:00 Intake Total 1640 ml 340 ml Balance 1640 ml 340 ml Images CXR: PA and lateral chest. History pneumonia, cough PA and lateral views were taken of the chest. There are bilateral pleural effusions larger on the left. There are bilateral areas of infiltrate more prominent on the left. There has been little change compared to the recent study. Impression: 1. No change bilateral infiltrates and bilateral effusions more prominent on the left. ANIRUDH ANNE MD Apr 17, 2017 11:57
[2017-04-17 12:24] LABS: VANC TR 13.1 mcg/mL (10.0-20.0)
[2017-04-17] MEDS: VANCOMYCIN 1.25 GM in IV NORMAL SALINE 250ML 250 ML IV SCH (12:53)
[2017-04-17] MEDS: VANCOMYCIN PER PHARMACY MC PRN (12:54)
[2017-04-17] MEDS: BENZONATATE 100 MG CAPSULE. PO SCH ×2 (14:21→20:31)
--- NOTE | 2017-04-17 15:22 | PDOC ---
SUBJECTIVE: The patient reports feeling better. OBJECTIVE: Problems: Problems Medical Problems: (1) Afib Status: Acute 1. Atrial fibrillation. Rate improved. Coumadin resumed. Could try antiarrhythmics but less likely to be successful skilled nursing with left atrial enlargement at 4.9cm 2. dyspnea - CXR with developing PNA and bilat effusions. Lasix as above. 3. 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 - continue present treatment. 4. Acute renal failure secondary to diarrhea and dehydration - resolved 5. sepsis/lactic acidosis/diarrhea - per PCP 6. hyperlipidemia - controlled Vital Signs: Vital Signs Date Time Temp Pulse Resp B/P (MAP) Pulse Ox O2 Delivery O2 Flow Rate FiO2 04/17/17 14:21 122 133/68 04/17/17 11:13 98.6 04/17/17 08:56 Room Air 04/17/17 08:00 22 91 04/16/17 21:00 2.0 I & O Intake and Output 04/17/17 07:00 Intake Total 1980 ml Balance 1980 ml Intake Oral 1980 ml # Voids 3 # Bowel Movements 1 Labs: Laboratory Tests Test 04/16/17 06:00 04/16/17 12:20 04/17/17 06:25 04/17/17 11:55 White Blood Count 9.5 x10^3/uL (4.0-11.0) 11.4 x10^3/uL (4.0-11.0) Red Blood Count 4.02 x10^6/uL (3.50-5.40) 3.89 x10^6/uL (3.50-5.40) Hemoglobin 11.6 g/dL (12.0-15.5) 12.9 g/dL (12.0-15.5) 11.1 g/dL (12.0-15.5) Hematocrit 34.1 % (36.0-47.0) 32.8 % (36.0-47.0) Mean Corpuscular Volume 85 fL (79-100) 84 fL (79-100) Mean Corpuscular Hemoglobin 29 pg (25-35) 29 pg (25-35) Mean Corpuscular Hemoglobin Concent 34 g/dL (31-37) 34 g/dL (31-37) Red Cell Distribution Width 14.6 % (11.5-14.5) 14.9 % (11.5-14.5) Platelet Count 222 x10^3/uL (140-400) 267 x10^3/uL (140-400) Neutrophils (%) (Auto) 76 % (31-73) 67 % (31-73) Lymphocytes (%) (Auto) 9 % (24-48) 12 % (24-48) Monocytes (%) (Auto) 12 % (0-9) 18 % (0-9) Eosinophils (%) (Auto) 3 % (0-3) 3 % (0-3) Basophils (%) (Auto) 1 % (0-3) 1 % (0-3) Neutrophils # (Auto) 7.2 x10^3uL (1.8-7.7) 7.6 x10^3uL (1.8-7.7) Lymphocytes # (Auto) 0.9 x10^3/uL (1.0-4.8) 1.3 x10^3/uL (1.0-4.8) Monocytes # (Auto) 1.1 x10^3/uL (0.0-1.1) 2.1 x10^3/uL (0.0-1.1) Eosinophils # (Auto) 0.3 x10^3/uL (0.0-0.7) 0.3 x10^3/uL (0.0-0.7) Basophils # (Auto) 0.1 x10^3/uL (0.0-0.2) 0.1 x10^3/uL (0.0-0.2) Segmented Neutrophils % 70 % (35-66) Band Neutrophils % 2 % (0-9) Lymphocytes % 11 % (24-48) Monocytes % 16 % (0-10) Eosinophils % 1 % (0-5) Platelet Estimate Adequate (ADEQUATE) Anisocytosis Slight Prothrombin Time 23.9 SEC (9.4-11.4) 27.2 SEC (9.4-11.4) 31.8 SEC (9.4-11.4) Prothromb Time International Ratio 2.3 (0.9-1.1) 2.6 (0.9-1.1) 3.1 (0.9-1.1) Sodium Level 141 mmol/L (136-145) 138 mmol/L (136-145) Potassium Level 3.4 mmol/L (3.5-5.1) 3.6 mmol/L (3.5-5.1) Chloride Level 109 mmol/L (98-107) 109 mmol/L (98-107) Carbon Dioxide Level 20 mmol/L (21-32) 21 mmol/L (21-32) Anion Gap 12 (6-14) 8 (6-14) Blood Urea Nitrogen 17 mg/dL (7-20) 18 mg/dL (7-20) Creatinine 1.2 mg/dL (0.6-1.0) 1.1 mg/dL (0.6-1.0) Estimated GFR (Cockcroft-Gault) 42.6 47.1 Glucose Level 119 mg/dL (70-99) 122 mg/dL (70-99) Calcium Level 7.6 mg/dL (8.5-10.1) 7.8 mg/dL (8.5-10.1) Vancomycin Level Trough 13.1 mcg/mL (10.0-20.0) Vancomycin Last Dose Date 04/16/2017 Vancomycin Last Dose Time 1230 Physical Exam: Chest. Mildly decreased breath sounds. CV. Irregularly irregular with a 106 systolic murmur. Abdomen. Soft without masses or tenderness. MARTIN MARTINEZ MD Apr 17, 2017 15:22
[2017-04-18 00:47] VITALS: BP 140/77
[2017-04-18] MEDS: PIPERACILLIN/TAZOBACTAM 3.375 GM in IV NORMAL SALINE 50ML 50 ML IV SCH ×3 (00:54→12:31)
[2017-04-18] MEDS: METOPROLOL TART IMMED RELEASE 25 MG TABLET PO SCH ×2 (05:10→14:02)
[2017-04-18 05:47] VITALS: BP 160/86
[2017-04-18 06:12] LABS: BASO # 0.1 x10^3/uL (0.0-0.2); BASO % 1 % (0-3); EOS # 0.5 x10^3/uL (0.0-0.7); EOS % 4 % (0-3); HEMATOCRIT 33.6 % (36.0-47.0); HEMOGLOBIN 11.2 g/dL (12.0-15.5); LYMPH # 1.6 x10^3/uL (1.0-4.8); LYMPH % 14 % (24-48); MEAN CORPUSCULAR HEMOGLOBIN 28 pg (25-35); MEAN CORPUSCULAR HGB CONC 33 g/dL (31-37); MEAN CORPUSCULAR VOLUME 85 fL (79-100); MONO # 2.1 x10^3/uL (0.0-1.1); MONO % 18 % (0-9); NEUT # 7.5 x10^3uL (1.8-7.7); NEUT % 64 % (31-73); PLATELET COUNT 304 x10^3/uL (140-400); RED BLOOD COUNT 3.96 x10^6/uL (3.50-5.40); RED CELL DISTRIBUTION WIDTH 15.1 % (11.5-14.5); WHITE BLOOD COUNT 11.7 x10^3/uL (4.0-11.0)
[2017-04-18 06:13] LABS: CALCIUM 8.2 mg/dL (8.5-10.1); CREATININE 1.3 mg/dL (0.6-1.0); GFR 38.8; POTASSIUM 3.5 mmol/L (3.5-5.1)
[2017-04-18 07:14] LABS: % BANDS 3 % (0-9); % EOS 7 % (0-5); % LYMPHS 22 % (24-48); % METAS 1 % (0-0); % MONOS 5 % (0-10); % MYELOS 0 % (0-0); % SEGS 62 % (35-66); PLT ESTIMATE ADEQUATE (ADEQUATE)
[2017-04-18 07:15] LABS: POLYCHROMASIA SLIGHT
[2017-04-18 07:16] LABS: SPHEROCYTES OCC; TARGET CELLS OCC; TEAR DROP CELLS FEW
[2017-04-18] MEDS: DIGOXIN 125 MCG TABLET PO SCH (09:24)
[2017-04-18] MEDS: FAMOTIDINE 20 MG TABLET PO SCH (09:25)
[2017-04-18] MEDS: BENZONATATE 100 MG CAPSULE. PO SCH ×2 (09:25→13:57)
[2017-04-18] MEDS: LACTOBACILLUS ACIDOPH & BULGAR 1 TABLET. PO SCH (09:25)
--- NOTE | 2017-04-18 09:26 | PDOC ---
PROGRESS NOTES Diagnosis Problem Problems Medical Problems: (1) Afib Status: Acute Assessment Problems Medical Problems: (1) Afib Status: Acute 1. Atrial fibrillation. Rate improved with metoprolol and dig. Coumadin for stroke prophylaxis. 2. dyspnea - CXR with PNA and bilat effusions. abx as per PCP. 3. 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 - continue present treatment. No overt heart failure. 4. Acute renal failure secondary to diarrhea and dehydration - resolved 5. sepsis/lactic acidosis/diarrhea - per PCP 6. hyperlipidemia - controlled Problems: Subjective feeling better slowly. breathing easy. no chest pain, palpitations or lightheadedness. Objective Vital Signs Date Time Temp Pulse Resp B/P (MAP) Pulse Ox O2 Delivery O2 Flow Rate FiO2 04/18/17 08:07 Room Air 04/18/17 05:47 97.7 96 160/86 (110) 97 04/17/17 08:03 20 04/16/17 21:00 2.0 Intake and Output 04/18/17 07:00 Intake Total 1190 ml Output Total 1500 ml Balance -310 ml Intake Oral 840 ml IV Total 350 ml Output Urine Total 1500 ml # Bowel Movements 2 Abdomen: Normal bowel sounds, Soft, No tenderness Heart: Other (IRR, no gallops, clicks or rubs, + ESM) Extremities: No cyanosis, Normal pulses, Other (trace edema) General: Alert, Oriented X3, Cooperative, No acute distress HEENT: Mucous membr. moist/pink Lungs: Other (decreased left > right in the bases) Neck: No JVD Neuro: Normal speech Psych/Mental Status: Mental status NL, Mood NL Review of Relevant I have reviewed the following items francheska (where applicable) has been applied. Labs Laboratory Tests Test 04/16/17 12:20 04/17/17 06:25 04/17/17 11:55 04/18/17 05:43 Hemoglobin 12.9 g/dL (12.0-15.5) 11.1 g/dL (12.0-15.5) 11.2 g/dL (12.0-15.5) Prothrombin Time 27.2 SEC (9.4-11.4) 31.8 SEC (9.4-11.4) 36.1 SEC (9.4-11.4) Prothromb Time International Ratio 2.6 (0.9-1.1) 3.1 (0.9-1.1) 3.5 (0.9-1.1) White Blood Count 11.4 x10^3/uL (4.0-11.0) 11.7 x10^3/uL (4.0-11.0) Red Blood Count 3.89 x10^6/uL (3.50-5.40) 3.96 x10^6/uL (3.50-5.40) Hematocrit 32.8 % (36.0-47.0) 33.6 % (36.0-47.0) Mean Corpuscular Volume 84 fL (79-100) 85 fL (79-100) Mean Corpuscular Hemoglobin 29 pg (25-35) 28 pg (25-35) Mean Corpuscular Hemoglobin Concent 34 g/dL (31-37) 33 g/dL (31-37) Red Cell Distribution Width 14.9 % (11.5-14.5) 15.1 % (11.5-14.5) Platelet Count 267 x10^3/uL (140-400) 304 x10^3/uL (140-400) Neutrophils (%) (Auto) 67 % (31-73) 64 % (31-73) Lymphocytes (%) (Auto) 12 % (24-48) 14 % (24-48) Monocytes (%) (Auto) 18 % (0-9) 18 % (0-9) Eosinophils (%) (Auto) 3 % (0-3) 4 % (0-3) Basophils (%) (Auto) 1 % (0-3) 1 % (0-3) Neutrophils # (Auto) 7.6 x10^3uL (1.8-7.7) 7.5 x10^3uL (1.8-7.7) Lymphocytes # (Auto) 1.3 x10^3/uL (1.0-4.8) 1.6 x10^3/uL (1.0-4.8) Monocytes # (Auto) 2.1 x10^3/uL (0.0-1.1) 2.1 x10^3/uL (0.0-1.1) Eosinophils # (Auto) 0.3 x10^3/uL (0.0-0.7) 0.5 x10^3/uL (0.0-0.7) Basophils # (Auto) 0.1 x10^3/uL (0.0-0.2) 0.1 x10^3/uL (0.0-0.2) Sodium Level 138 mmol/L (136-145) 140 mmol/L (136-145) Potassium Level 3.6 mmol/L (3.5-5.1) 3.5 mmol/L (3.5-5.1) Chloride Level 109 mmol/L (98-107) 110 mmol/L (98-107) Carbon Dioxide Level 21 mmol/L (21-32) 22 mmol/L (21-32) Anion Gap 8 (6-14) 8 (6-14) Blood Urea Nitrogen 18 mg/dL (7-20) 24 mg/dL (7-20) Creatinine 1.1 mg/dL (0.6-1.0) 1.3 mg/dL (0.6-1.0) Estimated GFR (Cockcroft-Gault) 47.1 38.8 Glucose Level 122 mg/dL (70-99) 117 mg/dL (70-99) Calcium Level 7.8 mg/dL (8.5-10.1) 8.2 mg/dL (8.5-10.1) Vancomycin Level Trough 13.1 mcg/mL (10.0-20.0) Vancomycin Last Dose Date 04/16/2017 Vancomycin Last Dose Time 1230 Segmented Neutrophils % 62 % (35-66) Band Neutrophils % 3 % (0-9) Lymphocytes % 22 % (24-48) Monocytes % 5 % (0-10) Eosinophils % 7 % (0-5) Metamyelocytes % 1 % (0-0) Myelocytes % 0 % (0-0) Platelet Estimate Adequate (ADEQUATE) Large Platelets Occ Giant Platelets Occ Polychromasia Slight Spherocytes Occ Target Cells Occ Tear Drop Cells Few Microbiology 04/12/17 Blood Culture - Final, Complete NO GROWTH AFTER 5 DAYS Medications Current Medications Sodium Chloride 1,000 ml @ 1,000 mls/hr 1X ONCE IV Last administered on t 08:35; Start 04/12/17 at 08:30; Stop 04/12/17 at 09:29; Status DC Diltiazem HCl (Cardizem) 10 mg 1X ONCE IVP Last administered on 04/12/17 10: 02; Start 04/12/17 at 10:00; Stop 04/12/17 at 10:01; Status DC Diltiazem HCl 125 mg/Dextrose 125 ml @ 0 mls/hr 1X ONCE IV Last administered on 04/12/17 10:26; Start 04/12/17 at 10:00; Stop 04/12/17 at 10:01; Status DC Lidocaine/Sodium Bicarbonate (Buffered Lidocaine 1%) 3 ml 1X ONCE IJ ; Start at 10:00; Stop 04/12/17 at 10:00; Status DC Ondansetron HCl (Zofran) 4 mg PRN Q4HRS PRN IV NAUSEA/VOMITING; Start 04/12/17 at 11:00; Stop 04/13/17 at 10:14; Status DC Sodium Chloride 1,000 ml @ 125 mls/hr 1X ONCE IV Last administered on 11:00; Start 04/12/17 at 11:00; Stop 04/12/17 at 18:59; Status DC Ondansetron HCl (Zofran) 4 mg PRN Q8HRS PRN IV NAUSEA/VOMITING; Start 04/12/17 at 12:30 Magnesium Sulfate 50 ml @ 25 mls/hr 1X ONCE IV Last administered on 04/12/17 13:49; Start 04/12/17 at 13:10; Stop 04/12/17 at 15:09; Status DC Famotidine (Pepcid) 20 mg BID IVP Last administered on 04/13/17 08:18; Start 04/12/17 at 21:00; Stop 04/13/17 at 10:19; Status DC Multivitamins/ Minerals 10 ml/ Folic Acid 1 mg/ Thiamine HCl 100 mg/Potassium Chloride 20 meq/ Dextrose/Lactated Ringer's 1,021.2 ml @ 150 mls/ hr 1X ONCE IV Last administered on 04/12/17 15:59; Start 04/12/17 at 16:00; Stop at 22:48; Status DC Insulin Aspart (NovoLOG) 0-5 UNITS QIDACHS SQ ; Start 04/12/17 at 16:30; Stop at 08:19; Status DC Dextrose 12.5 gm PRN Q15MIN PRN IV SEE COMMENTS; Start 04/12/17 at 15:30; Stop 04/14/17 at 08:19; Status DC Metronidazole 100 ml @ 100 mls/hr Q8HRS IV Last administered on 04/15/17 05: 58; Start 04/12/17 at 16:00; Stop 04/15/17 at 10:28; Status DC Sodium Chloride 1,000 ml @ 250 mls/hr 1X ONCE IV Last administered on 16:00; Start 04/12/17 at 16:00; Stop 04/12/17 at 19:59; Status DC Sodium Chloride 500 ml @ As Directed STK-MED ONCE .ROUTE Last administered on 04/12/17 15:59; Start 04/12/17 at 15:51; Stop 04/12/17 at 15:52; Status DC Diltiazem HCl 100 mg/Dextrose 100 ml @ 5 mls/hr CONT PRN IV SEE I/O RECORD; Start 04/12/17 at 18:00 Digoxin (Lanoxin) 500 mcg 1X ONCE IV Last administered on 04/12/17 19:12; Start 04/12/17 at 18:45; Stop 04/12/17 at 18:46; Status DC Metoprolol Tartrate (Lopressor) 12.5 mg Q6HRS PO Last administered on 05:42; Start 04/12/17 at 19:00; Stop 04/14/17 at 10:53; Status DC Potassium Chloride/Sodium Chloride 1,000 ml @ 75 mls/hr [id number] IV Last administered on 04/14/17 21:29; Start 04/13/17 at 01:00; Stop 04/15/17 at 08:35 ; Status DC Loperamide HCl (Imodium) 2 mg 1X ONCE PO Last administered on 04/13/17 08:18 ; Start 04/13/17 at 08:30; Stop 04/13/17 at 08:31; Status DC Multivitamins/ Minerals 10 ml/ Folic Acid 1 mg/ Thiamine HCl 100 mg/Sodium Chloride 1,011.2 ml @ 0 mls/hr 1X ONCE IV Last administered on 04/13/17 08: 42; Start 04/13/17 at 09:00; Stop 04/13/17 at 09:01; Status DC Lactobacillus Acidophilus (Bacid, Chata-Bid) 2 tab DAILY PO Last administered on 04/17/17 08:47; Start 04/13/17 at 09:00 Digoxin (Lanoxin) 125 mcg ONCE ONCE IV Last administered on 04/13/17 10:07; Start 04/13/17 at 10:00; Stop 04/13/17 at 10:01; Status DC Sodium Chloride 500 ml @ 0 mls/hr 1X ONCE IV Last administered on 04/13/17 10 :07; Start 04/13/17 at 10:00; Stop 04/13/17 at 10:01; Status DC Trimethoprim/ Sulfamethoxazole (Bactrim Ds) 1 tab DAILY PO Last administered on 04/14/17 08:16; Start 04/13/17 at 10:00; Stop 04/14/17 at 09:12; Status DC Famotidine (Pepcid) 20 mg BID PO Last administered on 04/13/17 21:30; Start at 21:00; Stop 04/14/17 at 07:35; Status DC Enoxaparin Sodium (Lovenox 80mg Syringe) 80 mg Q24H SQ Last administered on 08:17; Start 04/14/17 at 09:00; Stop 04/15/17 at 08:13; Status DC Warfarin Sodium (Coumadin Per Pharmacy) 1 each PRN DAILY PRN MC SEE COMMENTS Last administered on 04/18/17 09:19; Start 04/14/17 at 07:30; Status Future hold Famotidine (Pepcid) 20 mg DAILY PO Last administered on 04/17/17 08:47; Start 04/14/17 at 09:00 Warfarin Sodium (Coumadin) 1 mg 1X WARF ONCE PO Last administered on 16:31; Start 04/14/17 at 16:00; Stop 04/14/17 at 16:01; Status DC Ciprofloxacin Lactate 100 ml @ 100 mls/hr Q12HR IV Last administered on 10:15; Start 04/14/17 at 09:30; Stop 04/14/17 at 15:54; Status DC Loperamide HCl (Imodium) 2 mg 1X ONCE PO Last administered on 04/14/17 10:15 ; Start 04/14/17 at 10:15; Stop 04/14/17 at 10:16; Status DC Metoprolol Tartrate (Lopressor) 25 mg Q8HRS PO Last administered on 04/18/17 05:10; Start 04/14/17 at 14:00 Ceftriaxone Sodium 1 gm/ Sodium Chloride 50 ml @ 100 mls/hr Q24H IV Last administered on 04/14/17 16:32; Start 04/14/17 at 16:15; Stop 04/15/17 at 10:32 ; Status DC Furosemide (Lasix) 10 mg 1X ONCE IVP Last administered on 04/14/17 16:31; Start 04/14/17 at 16:00; Stop 04/14/17 at 16:01; Status DC Magnesium Sulfate 50 ml @ 25 mls/hr 1X ONCE IV Last administered on 04/15/17 07:59; Start 04/15/17 at 07:45; Stop 04/15/17 at 09:44; Status DC Warfarin Sodium (Coumadin) 1 mg 1X WARF ONCE PO Last administered on 16:21; Start 04/15/17 at 16:00; Stop 04/15/17 at 16:02; Status DC Furosemide (Lasix) 20 mg 1X ONCE IVP Last administered on 04/15/17 09:09; Start 04/15/17 at 08:10; Stop 04/15/17 at 08:11; Status DC Enoxaparin Sodium (Lovenox 80mg Syringe) 80 mg Q12H SQ Last administered on 08:49; Start 04/15/17 at 08:15; Stop 04/16/17 at 12:01; Status DC Piperacillin Sod/ Tazobactam Sod (Zosyn Per Pharmacy) 1 each PRN DAILY PRN MC SEE COMMENTS; Start 04/15/17 at 10:30 Vancomycin HCl (Vanco Per Pharmacy) 1 each PRN DAILY PRN MC SEE COMMENTS Last administered on 04/17/17 12:54; Start 04/15/17 at 10:30 Piperacillin Sod/ Tazobactam Sod 3.375 gm/Sodium Chloride 50 ml @ 100 mls/hr Q6HRS IV Last administered on 04/18/17 05:09; Start 04/15/17 at 12:00 Vancomycin HCl 2 gm/Sodium Chloride 500 ml @ 250 mls/hr 1X ONCE IV ; Start at 11:00; Stop 04/15/17 at 11:26; Status DC Furosemide (Lasix) 20 mg 1X ONCE IVP Last administered on 04/15/17 14:56; Start 04/15/17 at 11:00; Stop 04/15/17 at 11:01; Status DC Vancomycin HCl 2 gm/Sodium Chloride 500 ml @ 250 mls/hr 1X ONCE IV Last administered on 04/15/17 12:30; Start 04/15/17 at 12:30; Stop 04/15/17 at 14:29 ; Status DC Vancomycin HCl 1.25 gm/Sodium Chloride 250 ml @ 166.667 mls/hr Q24H IV Last administered on 04/17/17 12:53; Start 04/16/17 at 12:30 Vancomycin HCl 1 each 1X ONCE MC ; Start 04/15/17 at 13:40; Stop 04/15/17 at 13 :41; Status DC Vancomycin HCl 1 each 1X ONCE MC ; Start 04/17/17 at 12:00; Stop 04/17/17 at 12 :01; Status DC Digoxin (Lanoxin) 125 mcg DAILY PO Last administered on 04/17/17 08:47; Start 04/15/17 at 16:10 Warfarin Sodium (Coumadin) 1 mg 1X WARF ONCE PO Last administered on 16:42; Start 04/16/17 at 16:00; Stop 04/16/17 at 16:01; Status DC Potassium Chloride (Klor-Con) 20 meq 1X ONCE PO Last administered on 12:32; Start 04/16/17 at 12:00; Stop 04/16/17 at 12:08; Status DC Sodium Chloride 250 ml @ As Directed STK-MED ONCE .ROUTE Last administered on 04/16/17 18:27; Start 04/16/17 at 18:24; Stop 04/16/17 at 18:25; Status DC Warfarin Sodium (Coumadin - No Dose Today) 1 each 1X WARF ONCE MC ; Start 04/17 at 16:00; Stop 04/17/17 at 16:01; Status DC Benzonatate (Tessalon Perle) 100 mg [id number] PO Last administered on 04/17/17t 20 :31; Start 04/17/17 at 14:00 Active Scripts Active Amlodipine Besylate 10 Mg Tablet 1 Tab PO DAILY Reported Diovan (Valsartan) 320 Mg Tablet 1 Tab PO DAILY Thera-M (Multivits,Th W-Fe,Other Min) 1 Each Tablet 1 Each PO DAILY Metoprolol Tartrate 50 Mg Tablet 1 Tab PO HS Metoprolol Tartrate 100 Mg Tablet 1 Tab PO DAILY Vitamin B-12 (Cyanocobalamin (Vitamin B-12)) 100 Mcg Tablet 100 Mcg PO DAILY Calcium + D3 Er Tablet (Calcium Carb & Cit/Vitamin D3) 1 Each Tablet.er 1 Each PO DAILY Lipitor (Atorvastatin Calcium) 10 Mg Tablet 1 Tab PO DAILY Aspir-Low (Aspirin) 81 Mg Tablet.dr 1 Tab PO DAILY Ascorbic Acid 500 Mg Tablet 500 Mg PO DAILY Coumadin (Warfarin Sodium) 1 Mg Tablet 2 Mg PO DAILYWSUP Vitals/I & O Vital Sign - Last 24 Hours 04/17/17 04/17/17 04/17/17 04/17/17 10:03 11:03 11:13 12:34 Temp 98.6 Pulse 102 106 118 B/P (MAP) 100/59 (73) 117/65 (82) 104/54 (71) Pulse Ox 95 95 93 O2 Delivery Room Air Room Air Room Air 04/17/17 04/17/17 04/17/17 04/17/17 14:21 14:21 19:23 20:07 Pulse 122 108 104 B/P (MAP) 133/68 114/62 (79) 104/77 (86) Pulse Ox 93 96 O2 Delivery Room Air Room Air Room Air 04/17/17 04/18/17 04/18/17 04/18/17 21:56 00:47 05:10 05:47 Temp 98.0 97.7 Pulse 104 100 97 96 B/P (MAP) 104/77 140/77 (98) 160/86 160/86 (110) Pulse Ox 96 97 O2 Delivery Room Air Room Air 04/18/17 08:07 O2 Delivery Room Air Intake and Output 04/17/17 04/17/17 04/18/17 15:00 23:00 07:00 Intake Total 790 ml 250 ml 150 ml Output Total 700 ml 800 ml Balance 790 ml -450 ml -650 ml CELSO ABEBE APRN Apr 18, 2017 09:26
[2017-04-18 11:23] VITALS: BP 119/69
[2017-04-18] MEDS: VANCOMYCIN 1.25 GM in IV NORMAL SALINE 250ML 250 ML IV SCH (13:13)
[2017-04-18] MEDS ORDERED: METO25TA4 PO (14:20)
[2017-04-18] MEDS ORDERED: DIGO125T PO (14:20)
[2017-04-18] MEDS ORDERED: LEVO500T59 PO (14:22)
--- NOTE | 2017-04-18 14:37 | PDOC3 ---
Discharge Summary Visit Information Date of Admission: Apr 12, 2017 Date of Discharge: Apr 18, 2017 Admitting Diagnosis: Diarhhea with dehydration, lactic acidosis and JESSICA, Pneu Admitting Diagnosis Comments The patient was initially treated for diarhhea , dehydration lactic acidosis and sepsis She was eventually diagnosed with bilateral pneumonia and bilateral pleural effusion traeted with vancomycin and zosyn JESSICA 2/2 to dehydration traeted and improved Atrial fibrillation with RVR rate controlled well anticoagulated Final Diagnosis Problems Medical Problems: Atrial Fibrillation with RVR rate controlled well anticoagulated She is now on metoprolol 25mg tid and Digoxin 125 mg po daily Pneumonia treated with Vancomycin and Zosyn Blood cultures are negative. She will be discharged on Levaquin Cardiomyopathy with EF 45% JESSICA 2/2 to dehydration resolved Sepsis lactic acidosis and diarrhea resolved Hyperlipidemia Status: Acute Problems: Brief Hospital Course Allergies Allergies Coded Allergies Type Severity Reaction Last Updated Verified No Known Drug Allergies 04/12/17 No Vital Signs Vital Signs Date Time Temp Pulse Resp B/P (MAP) Pulse Ox O2 Delivery O2 Flow Rate FiO2 04/18/17 14:02 89 125/62 04/18/17 11:23 98.0 25 97 Room Air 04/16/17 21:00 2.0 Lab Results Laboratory Tests Test 04/17/17 06:25 04/17/17 11:55 04/18/17 05:43 White Blood Count 11.4 x10^3/uL (4.0-11.0) 11.7 x10^3/uL (4.0-11.0) Red Blood Count 3.89 x10^6/uL (3.50-5.40) 3.96 x10^6/uL (3.50-5.40) Hemoglobin 11.1 g/dL (12.0-15.5) 11.2 g/dL (12.0-15.5) Hematocrit 32.8 % (36.0-47.0) 33.6 % (36.0-47.0) Mean Corpuscular Volume 84 fL (79-100) 85 fL (79-100) Mean Corpuscular Hemoglobin 29 pg (25-35) 28 pg (25-35) Mean Corpuscular Hemoglobin Concent 34 g/dL (31-37) 33 g/dL (31-37) Red Cell Distribution Width 14.9 % (11.5-14.5) 15.1 % (11.5-14.5) Platelet Count 267 x10^3/uL (140-400) 304 x10^3/uL (140-400) Neutrophils (%) (Auto) 67 % (31-73) 64 % (31-73) Lymphocytes (%) (Auto) 12 % (24-48) 14 % (24-48) Monocytes (%) (Auto) 18 % (0-9) 18 % (0-9) Eosinophils (%) (Auto) 3 % (0-3) 4 % (0-3) Basophils (%) (Auto) 1 % (0-3) 1 % (0-3) Neutrophils # (Auto) 7.6 x10^3uL (1.8-7.7) 7.5 x10^3uL (1.8-7.7) Lymphocytes # (Auto) 1.3 x10^3/uL (1.0-4.8) 1.6 x10^3/uL (1.0-4.8) Monocytes # (Auto) 2.1 x10^3/uL (0.0-1.1) 2.1 x10^3/uL (0.0-1.1) Eosinophils # (Auto) 0.3 x10^3/uL (0.0-0.7) 0.5 x10^3/uL (0.0-0.7) Basophils # (Auto) 0.1 x10^3/uL (0.0-0.2) 0.1 x10^3/uL (0.0-0.2) Prothrombin Time 31.8 SEC (9.4-11.4) 36.1 SEC (9.4-11.4) Prothromb Time International Ratio 3.1 (0.9-1.1) 3.5 (0.9-1.1) Sodium Level 138 mmol/L (136-145) 140 mmol/L (136-145) Potassium Level 3.6 mmol/L (3.5-5.1) 3.5 mmol/L (3.5-5.1) Chloride Level 109 mmol/L (98-107) 110 mmol/L (98-107) Carbon Dioxide Level 21 mmol/L (21-32) 22 mmol/L (21-32) Anion Gap 8 (6-14) 8 (6-14) Blood Urea Nitrogen 18 mg/dL (7-20) 24 mg/dL (7-20) Creatinine 1.1 mg/dL (0.6-1.0) 1.3 mg/dL (0.6-1.0) Estimated GFR (Cockcroft-Gault) 47.1 38.8 Glucose Level 122 mg/dL (70-99) 117 mg/dL (70-99) Calcium Level 7.8 mg/dL (8.5-10.1) 8.2 mg/dL (8.5-10.1) Vancomycin Level Trough 13.1 mcg/mL (10.0-20.0) Vancomycin Last Dose Date 04/16/2017 Vancomycin Last Dose Time 1230 Segmented Neutrophils % 62 % (35-66) Band Neutrophils % 3 % (0-9) Lymphocytes % 22 % (24-48) Monocytes % 5 % (0-10) Eosinophils % 7 % (0-5) Metamyelocytes % 1 % (0-0) Myelocytes % 0 % (0-0) Platelet Estimate Adequate (ADEQUATE) Large Platelets Occ Giant Platelets Occ Polychromasia Slight Spherocytes Occ Target Cells Occ Tear Drop Cells Few Brief Hospital Course The patient was initially admitted with diarrhea, sepsis and lactic acidosis She was found to have pneumonia, CMP as well as atrial fibrillation with RVR Her diarrhea, lactic acidosis resolved Sepsis was thought be 2/2 pneumonia treated with I V ANTIBIOTICS JESSICA resolved Atrial Fibrillation with RVR treated with metoprolol and digoxin She was discharged to continue antibiotics in the form of Levaquin which covers the atypical organism that might have been the cause of all her symptoms Discharge Information Condition at Discharge: Improved Follow Up: As Needed Disposition/Orders: D/C to Home, D/C to Home w/ HH Dischare Medications Current Medications Sodium Chloride 1,000 ml @ 1,000 mls/hr 1X ONCE IV Last administered on 08:35; Start 04/12/17 at 08:30; Stop 04/12/17 at 09:29; Status DC Diltiazem HCl (Cardizem) 10 mg 1X ONCE IVP Last administered on 04/12/17 10: 02; Start 04/12/17 at 10:00; Stop 04/12/17 at 10:01; Status DC Diltiazem HCl 125 mg/Dextrose 125 ml @ 0 mls/hr 1X ONCE IV Last administered on 04/12/17 10:26; Start 04/12/17 at 10:00; Stop 04/12/17 at 10:01; Status DC Lidocaine/Sodium Bicarbonate (Buffered Lidocaine 1%) 3 ml 1X ONCE IJ ; Start at 10:00; Stop 04/12/17 at 10:00; Status DC Ondansetron HCl (Zofran) 4 mg PRN Q4HRS PRN IV NAUSEA/VOMITING; Start 04/12/17 at 11:00; Stop 04/13/17 at 10:14; Status DC Sodium Chloride 1,000 ml @ 125 mls/hr 1X ONCE IV Last administered on 11:00; Start 04/12/17 at 11:00; Stop 04/12/17 at 18:59; Status DC Ondansetron HCl (Zofran) 4 mg PRN Q8HRS PRN IV NAUSEA/VOMITING; Start 04/12/17 at 12:30 Magnesium Sulfate 50 ml @ 25 mls/hr 1X ONCE IV Last administered on 04/12/17 13:49; Start 04/12/17 at 13:10; Stop 04/12/17 at 15:09; Status DC Famotidine (Pepcid) 20 mg BID IVP Last administered on 04/13/17 08:18; Start 04/12/17 at 21:00; Stop 04/13/17 at 10:19; Status DC Multivitamins/ Minerals 10 ml/ Folic Acid 1 mg/ Thiamine HCl 100 mg/Potassium Chloride 20 meq/ Dextrose/Lactated Ringer's 1,021.2 ml @ 150 mls/ hr 1X ONCE IV Last administered on 04/12/17 15:59; Start 04/12/17 at 16:00; Stop at 22:48; Status DC Insulin Aspart (NovoLOG) 0-5 UNITS QIDACHS SQ ; Start 04/12/17 at 16:30; Stop at 08:19; Status DC Dextrose 12.5 gm PRN Q15MIN PRN IV SEE COMMENTS; Start 04/12/17 at 15:30; Stop 04/14/17 at 08:19; Status DC Metronidazole 100 ml @ 100 mls/hr Q8HRS IV Last administered on 04/15/17 05: 58; Start 04/12/17 at 16:00; Stop 04/15/17 at 10:28; Status DC Sodium Chloride 1,000 ml @ 250 mls/hr 1X ONCE IV Last administered on 16:00; Start 04/12/17 at 16:00; Stop 04/12/17 at 19:59; Status DC Sodium Chloride 500 ml @ As Directed STK-MED ONCE .ROUTE Last administered on 04/12/17 15:59; Start 04/12/17 at 15:51; Stop 04/12/17 at 15:52; Status DC Diltiazem HCl 100 mg/Dextrose 100 ml @ 5 mls/hr CONT PRN IV SEE I/O RECORD; Start 04/12/17 at 18:00 Digoxin (Lanoxin) 500 mcg 1X ONCE IV Last administered on 04/12/17 19:12; Start 04/12/17 at 18:45; Stop 04/12/17 at 18:46; Status DC Metoprolol Tartrate (Lopressor) 12.5 mg Q6HRS PO Last administered on 05:42; Start 04/12/17 at 19:00; Stop 04/14/17 at 10:53; Status DC Potassium Chloride/Sodium Chloride 1,000 ml @ 75 mls/hr [id number] IV Last administered on 04/14/17 21:29; Start 04/13/17 at 01:00; Stop 04/15/17 at 08:35 ; Status DC Loperamide HCl (Imodium) 2 mg 1X ONCE PO Last administered on 04/13/17 08:18 ; Start 04/13/17 at 08:30; Stop 04/13/17 at 08:31; Status DC Multivitamins/ Minerals 10 ml/ Folic Acid 1 mg/ Thiamine HCl 100 mg/Sodium Chloride 1,011.2 ml @ 0 mls/hr 1X ONCE IV Last administered on 04/13/17 08: 42; Start 04/13/17 at 09:00; Stop 04/13/17 at 09:01; Status DC Lactobacillus Acidophilus (Bacid, Chata-Bid) 2 tab DAILY PO Last administered on 04/18/17 09:25; Start 04/13/17 at 09:00 Digoxin (Lanoxin) 125 mcg ONCE ONCE IV Last administered on 04/13/17 10:07; Start 04/13/17 at 10:00; Stop 04/13/17 at 10:01; Status DC Sodium Chloride 500 ml @ 0 mls/hr 1X ONCE IV Last administered on 04/13/17 10 :07; Start 04/13/17 at 10:00; Stop 04/13/17 at 10:01; Status DC Trimethoprim/ Sulfamethoxazole (Bactrim Ds) 1 tab DAILY PO Last administered on 04/14/17 08:16; Start 04/13/17 at 10:00; Stop 04/14/17 at 09:12; Status DC Famotidine (Pepcid) 20 mg BID PO Last administered on 04/13/17 21:30; Start at 21:00; Stop 04/14/17 at 07:35; Status DC Enoxaparin Sodium (Lovenox 80mg Syringe) 80 mg Q24H SQ Last administered on 08:17; Start 04/14/17 at 09:00; Stop 04/15/17 at 08:13; Status DC Warfarin Sodium (Coumadin Per Pharmacy) 1 each PRN DAILY PRN MC SEE COMMENTS Last administered on 04/18/17 09:19; Start 04/14/17 at 07:30; Status Future hold Famotidine (Pepcid) 20 mg DAILY PO Last administered on 04/18/17 09:25; Start 04/14/17 at 09:00 Warfarin Sodium (Coumadin) 1 mg 1X WARF ONCE PO Last administered on 16:31; Start 04/14/17 at 16:00; Stop 04/14/17 at 16:01; Status DC Ciprofloxacin Lactate 100 ml @ 100 mls/hr Q12HR IV Last administered on 10:15; Start 04/14/17 at 09:30; Stop 04/14/17 at 15:54; Status DC Loperamide HCl (Imodium) 2 mg 1X ONCE PO Last administered on 04/14/17 10:15 ; Start 04/14/17 at 10:15; Stop 04/14/17 at 10:16; Status DC Metoprolol Tartrate (Lopressor) 25 mg Q8HRS PO Last administered on 04/18/17 14:02; Start 04/14/17 at 14:00 Ceftriaxone Sodium 1 gm/ Sodium Chloride 50 ml @ 100 mls/hr Q24H IV Last administered on 04/14/17 16:32; Start 04/14/17 at 16:15; Stop 04/15/17 at 10:32 ; Status DC Furosemide (Lasix) 10 mg 1X ONCE IVP Last administered on 04/14/17 16:31; Start 04/14/17 at 16:00; Stop 04/14/17 at 16:01; Status DC Magnesium Sulfate 50 ml @ 25 mls/hr 1X ONCE IV Last administered on 04/15/17 07:59; Start 04/15/17 at 07:45; Stop 04/15/17 at 09:44; Status DC Warfarin Sodium (Coumadin) 1 mg 1X WARF ONCE PO Last administered on 16:21; Start 04/15/17 at 16:00; Stop 04/15/17 at 16:02; Status DC Furosemide (Lasix) 20 mg 1X ONCE IVP Last administered on 04/15/17 09:09; Start 04/15/17 at 08:10; Stop 04/15/17 at 08:11; Status DC Enoxaparin Sodium (Lovenox 80mg Syringe) 80 mg Q12H SQ Last administered on 08:49; Start 04/15/17 at 08:15; Stop 04/16/17 at 12:01; Status DC Piperacillin Sod/ Tazobactam Sod (Zosyn Per Pharmacy) 1 each PRN DAILY PRN MC SEE COMMENTS; Start 04/15/17 at 10:30 Vancomycin HCl (Vanco Per Pharmacy) 1 each PRN DAILY PRN MC SEE COMMENTS Last administered on 04/17/17 12:54; Start 04/15/17 at 10:30 Piperacillin Sod/ Tazobactam Sod 3.375 gm/Sodium Chloride 50 ml @ 100 mls/hr Q6HRS IV Last administered on 04/18/17 12:31; Start 04/15/17 at 12:00 Vancomycin HCl 2 gm/Sodium Chloride 500 ml @ 250 mls/hr 1X ONCE IV ; Start at 11:00; Stop 04/15/17 at 11:26; Status DC Furosemide (Lasix) 20 mg 1X ONCE IVP Last administered on 04/15/17 14:56; Start 04/15/17 at 11:00; Stop 04/15/17 at 11:01; Status DC Vancomycin HCl 2 gm/Sodium Chloride 500 ml @ 250 mls/hr 1X ONCE IV Last administered on 04/15/17 12:30; Start 04/15/17 at 12:30; Stop 04/15/17 at 14:29 ; Status DC Vancomycin HCl 1.25 gm/Sodium Chloride 250 ml @ 166.667 mls/hr Q24H IV Last administered on 04/18/17 13:13; Start 04/16/17 at 12:30 Vancomycin HCl 1 each 1X ONCE MC ; Start 04/15/17 at 13:40; Stop 04/15/17 at 13 :41; Status DC Vancomycin HCl 1 each 1X ONCE MC ; Start 04/17/17 at 12:00; Stop 04/17/17 at 12 :01; Status DC Digoxin (Lanoxin) 125 mcg DAILY PO Last administered on 04/18/17 09:24; Start 04/15/17 at 16:10 Warfarin Sodium (Coumadin) 1 mg 1X WARF ONCE PO Last administered on 16:42; Start 04/16/17 at 16:00; Stop 04/16/17 at 16:01; Status DC Potassium Chloride (Klor-Con) 20 meq 1X ONCE PO Last administered on 12:32; Start 04/16/17 at 12:00; Stop 04/16/17 at 12:08; Status DC Sodium Chloride 250 ml @ As Directed STK-MED ONCE .ROUTE Last administered on 04/16/17 18:27; Start 04/16/17 at 18:24; Stop 04/16/17 at 18:25; Status DC Warfarin Sodium (Coumadin - No Dose Today) 1 each 1X WARF ONCE MC ; Start 04/17 at 16:00; Stop 04/17/17 at 16:01; Status DC Benzonatate (Tessalon Perle) 100 mg [id number] PO Last administered on 04/18/17 13 :57; Start 04/17/17 at 14:00 Active Scripts Active Amlodipine Besylate 10 Mg Tablet 1 Tab PO DAILY Reported Diovan (Valsartan) 320 Mg Tablet 1 Tab PO DAILY Thera-M (Multivits,Th W-Fe,Other Min) 1 Each Tablet 1 Each PO DAILY Metoprolol Tartrate 50 Mg Tablet 1 Tab PO HS Metoprolol Tartrate 100 Mg Tablet 1 Tab PO DAILY Vitamin B-12 (Cyanocobalamin (Vitamin B-12)) 100 Mcg Tablet 100 Mcg PO DAILY Calcium + D3 Er Tablet (Calcium Carb & Cit/Vitamin D3) 1 Each Tablet.er 1 Each PO DAILY Lipitor (Atorvastatin Calcium) 10 Mg Tablet 1 Tab PO DAILY Aspir-Low (Aspirin) 81 Mg Tablet.dr 1 Tab PO DAILY Ascorbic Acid 500 Mg Tablet 500 Mg PO DAILY Coumadin (Warfarin Sodium) 1 Mg Tablet 2 Mg PO DAILYWSUP Patient Instructions Patient Instuctions Patient was instructed to follow with 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
[2017-04-18 15:13] VITALS: BP 125/62
== END 2017-04-18 15:52 | disposition home health service (06) | DRG 871 ==
LOC: ER 07:52 → ICU 11:00 → ER 11:00
PROVIDERS: ADMIT Family Medicine; ATTEND Family Medicine
DX: A41.9 Sepsis, unspecified organism (principal); J18.9 Pneumonia, unspecified organism; N17.9 Acute kidney failure, unspecified; I13.0 Hypertensive heart and chronic kidney disease with heart failure and stage 1 through stage 4 chronic kidney disease, or unspecified chronic kidney disease; I42.9 Cardiomyopathy, unspecified; I50.22 Chronic systolic (congestive) heart failure; D68.9 Coagulation defect, unspecified; E44.0 Moderate protein-calorie malnutrition; E11.22 Type 2 diabetes mellitus with diabetic chronic kidney disease; E11.65 Type 2 diabetes mellitus with hyperglycemia; E78.5 Hyperlipidemia, unspecified; E83.42 Hypomagnesemia; E86.0 Dehydration; E87.6 Hypokalemia; I07.1 Rheumatic tricuspid insufficiency; I27.2 Other secondary pulmonary hypertension; I35.1 Nonrheumatic aortic (valve) insufficiency; I48.2 Chronic atrial fibrillation; N18.9 Chronic kidney disease, unspecified; R09.02 Hypoxemia; T36.95XA Adverse effect of unspecified systemic antibiotic, initial encounter; Y92.89 Other specified places as the place of occurrence of the external cause; Z79.01 Long term (current) use of anticoagulants; Z85.038 Personal history of other malignant neoplasm of large intestine; Z68.30 Body mass index [BMI] 30.0-30.9, adult; Z79.82 Long term (current) use of aspirin; Z79.899 Other long term (current) drug therapy
CPT/HCPCS: 36415; 36600; 51701; 71010; 71020; 80048; 80053; 80061; 80076; 80202; 81001; 82274; 82553; 82803; 82947; 83605; 83690; 83735; 83880; 84443; 84484; 85007; 85018; 85027; 85610; 85730; 86850; 86900; 86901; 87040; 87045; 87177; 87205; 87324; 87641; 93005; 93306; 96361; 96365; J0696; J0744; J1160; J1650; J1815; J2543; J3370; J3475; J3490; J7040; J7050; S0028; 97110; 97116; 97530; 97535; 99285-25; J7030

== ENCOUNTER → 2018-03-07 | Outpatient (CLI) | payer MEDICARE, OTHER ==
[~2018-03-07] MED LIST: AMLO10TA2 PO; ASCO500T3 PO; ASPI81TA50 PO; ATOR10TA PO; CALC-77 PO; CYAN100T PO; DIGO125T PO; LEVO500T59 PO; METO100T7 PO; METO25TA4 PO; METO50TA6 PO; MULT-503 PO; VALS320T2 PO; WARF1TAB74 PO
--- NOTE | 2018-03-08 13:09 | RAD ---
DATE: 03/07/2018 EXAM: DIGITAL SCREEN BILAT W/CAD HISTORY: Routine screening COMPARISON: 02/24/2017 This study was interpreted with the benefit of Computerized Aided Detection (CAD). The breast parenchyma is heterogeneously dense, which could reduce sensitivity of mammography. Breast parenchyma level C. FINDINGS: No new or enlarging breast densities are seen. Scattered benign type calcifications are present. No suspicious microcalcifications have developed. IMPRESSION: Stable mammograms without evidence of malignancy. BI-RADS CATEGORY: 2 BENIGN FINDING(S) RECOMMENDED FOLLOW-UP: 12M 12 MONTH FOLLOW-UP PQRS compliance statement: Patient information was entered into a reminder system with a target due date for the next mammogram. Mammography is a sensitive method for finding small breast cancers, but it does not detect them all and is not a substitute for careful clinical examination. A negative mammogram does not negate a clinically suspicious finding and should not result in delay in biopsying a clinically suspicious abnormality. "Our facility is accredited by the [employer] Mammography Program."
== END | disposition home or self-care (01) ==
LOC: MAMMO 11:18
PROVIDERS: ATTEND Physician Assistant
DX: Z12.31 Encounter for screening mammogram for malignant neoplasm of breast (principal)
CPT/HCPCS: 77067